=== PATIENT | female | born 1985 | race American Indian/Alaskan Native ===

== ENCOUNTER 2018-07-11 11:55 | Emergency (ER) | payer SELFPAY ==
[2018-07-11 12:31] LABS: Basophils % (Auto) 0.3 % (0.0-1.8); Eosinophils # (Auto) 0.1 K/mm3 (0.0-0.4); Eosinophils % (Auto) 1.2 % (0.0-4.3); Hematocrit 39.2 % (30.3-42.9); Hemoglobin 13.3 gm/dl (10.1-14.3); Lymphocytes # (Auto) 1.1 K/mm3 (1.2-5.4); Lymphocytes % (Auto) 13.9 % (13.4-35.0); Mean Corpuscular HGB Conc 34 % (30-34); Mean Corpuscular Volume 95 fl (79-97); Monocytes # (Auto) 0.8 K/mm3 (0.0-0.8); Monocytes % (Auto) 9.5 % (0.0-7.3); Platelet Count 205 K/mm3 (140-440); Red Blood Count 4.14 M/mm3 (3.65-5.03); Red Cell Distribution Width 13.5 % (13.2-15.2)
--- NOTE | 2018-07-11 12:46 | Emergency Department Report ---
ED Seizure HPI - General Chief Complaint: Seizure Stated Complaint: SEIZURE Time Seen by Provider: 07/11/18 12:00 Source: EMS Mode of arrival: Stretcher Limitations: No Limitations - History of Present Illness Initial Comments: 32-year-old female presents to ED following seizure. Patient has been noncompliant with seizure medication, zonisamide. Patient appears to be postictal, but is answering questions. MD Complaint: seizure -: This afternoon Seizure History: known seizure disorder, history of non-compliance Possible Precipitating Event: other (medication noncompliance) Associated Symptoms: denies: chest pain, fever/chills Treatments Prior to Arrival: none - Related Data Home Medications Medication Instructions Recorded Confirmed Last Taken Zonisamide 500 mg PO DAILY 07/11/18 07/11/18 07/03/18 08:00 Previous Rx's Medication Instructions Recorded Last Taken Type Zonisamide 500 mg PO QDAY #200 capsule 07/11/18 Unknown Rx Allergies Allergy/AdvReac Type Severity Reaction Status Date / Time No Known Allergies Allergy Verified 07/11/18 12:28 ED Review of Systems ROS: Stated complaint: SEIZURE Other details as noted in HPI Comment: All other systems reviewed and negative Constitutional: denies: fever Respiratory: denies: shortness of breath Cardiovascular: denies: chest pain Neurological: denies: headache ED Past Medical Hx - Past Medical History Previous Medical History?: Yes Hx Seizures: Yes Hx Asthma: (Per ER record) - Social History Smoking Status: Current Every Day Smoker Substance Use Type: Alcohol - Medications Home Medications: Home Medications Medication Instructions Recorded Confirmed Last Taken Type Zonisamide 500 mg PO DAILY 07/11/18 07/11/18 07/03/18 08:00 History Zonisamide 500 mg PO QDAY #200 capsule 07/11/18 Unknown Rx ED Physical Exam - General Limitations: No Limitations General appearance: alert, in no apparent distress - Head Head exam: Present: atraumatic, normocephalic - Eye Eye exam: Present: normal appearance - ENT ENT exam: Present: mucous membranes dry - Neck Neck exam: Present: normal inspection - Respiratory Respiratory exam: Present: normal lung sounds bilaterally. Absent: respiratory distress - Cardiovascular Cardiovascular Exam: Present: regular rate, normal rhythm - GI/Abdominal GI/Abdominal exam: Present: soft. Absent: distended, tenderness - Extremities Exam Extremities exam: Present: normal inspection - Neurological Exam Neurological exam: Present: alert, oriented X3 - Psychiatric Psychiatric exam: Present: normal affect, normal mood - Skin Skin exam: Present: warm, dry, intact, normal color ED Course Vital Signs 07/11/18 07/11/18 12:22 12:28 Temperature 97.9 F 97.9 F Pulse Rate 88 88 Respiratory 14 14 Rate Blood Pressure 104/56 Blood Pressure 104/56 104/56 [Right] O2 Sat by Pulse 99 99 Oximetry ED Medical Decision Making - Lab Data Result diagrams: 07/11/18 12:19 07/11/18 12:19 - Medical Decision Making 32-year-old female with history of seizure disorder, on seizure meds for approximately 2 weeks presents to ED after having a seizure. Blood pressure did trend to 80s over 60s, however patient not tachycardic, no sign of infection present. WBCs normal, patient is afebrile. O2 sats normal. Patient admits she has had decreased appetite over the last few days and not drinking very many fluids due to URI symptoms. BP responded and improved to 100/63 with 500 cc bolus of IV fluids. Patient currently awake and alert, no complaints. No seizures here in ED. Attempted to order a dose of patient's seizure medication, zonisamide, however that medication is not on formulary at this facility. Will instead give prescription. Patient's mother at bedside. Outpatient follow-up information given. Return precautions given. - Differential Diagnosis seizure, , electrolyte abnormality Critical care attestation.: If time is entered above; I have spent that time in minutes in the direct care of this critically ill patient, excluding procedure time. ED Disposition Clinical Impression: Seizure, Dehydration Disposition: - TO HOME OR SELFCARE Is pt being admited?: No Condition: Stable Prescriptions: Zonisamide 500 mg PO QDAY #200 capsule Referrals: ALAN CALDERON MD [Primary Care Provider] - 3-5 Days FARHANA DODSON MD [Referring] - 3-5 Days [facility] [Provider Group] - 3-5 Days Time of Disposition: 15:55
[2018-07-11 12:48] LABS: BUN/Creatinine Ratio 11; Blood Urea Nitrogen 8 mg/dL (7-17); Calcium 9.3 mg/dL (8.4-10.2); Hemolysis Index 8
[2018-07-11] MEDS ORDERED: NACL 0.9% 1000 ML 1,000 ML IV ONE (14:15)
[2018-07-11 16:32] VITALS: BP 100/63
== END 2018-07-11 16:28 | disposition home or self-care (01) ==
LOC: ED 11:55
DX: G40.909 Epilepsy, unspecified, not intractable, without status epilepticus (principal); E86.0 Dehydration; J45.909 Unspecified asthma, uncomplicated
CPT/HCPCS: 36415; 80048; 84703; 85025; 96360; 99284; J7030

== ENCOUNTER 2018-08-22 05:40 | Emergency (ER) | payer OTHER ==
[2018-08-22 07:16] LABS: Hematocrit 37.9 % (30.3-42.9); Hemoglobin 12.9 gm/dl (10.1-14.3); Mean Corpuscular HGB Conc 34 % (30-34); Mean Corpuscular Volume 95 fl (79-97); Platelet Count 249 K/mm3 (140-440); Red Cell Distribution Width 13.9 % (13.2-15.2)
[2018-08-22] MEDS ORDERED: KEPPRA 1,000 MG/NS 0.75% 100ML 1,000 MG/100 ML BAG IV ONE (07:29)
[2018-08-22 07:31] LABS: BUN/Creatinine Ratio 11; Blood Urea Nitrogen 9 mg/dL (7-17); Calcium 9.4 mg/dL (8.4-10.2); Hemolysis Index 18
[2018-08-22] MEDS ORDERED: NACL 0.9% 1000 ML 1,000 ML IV ONE (07:39)
[2018-08-22 10:15] LABS: Bilirubin,Urine NEG (Negative); Blood,Urine SM (Negative); Color,Urine Yellow (Yellow); Protein,Urine <15 mg/dL mg/dL (Negative); Urobilinogen,Urine < 2.0 mg/dL (<2.0)
[2018-08-22 10:27] LABS: HCG Qualitative,Urine Negative (Negative)
[2018-08-22 10:31] LABS: Amphetamine Screen,Urine PRESUMPTIVE NEGATIVE; Benzodiazepines Screen,Urine PRESUMPTIVE NEGATIVE; Cocaine Screen,Urine PRESUMPTIVE NEGATIVE; Methadone Screen,Urine PRESUMPTIVE NEGATIVE; Opiate Screen,Urine PRESUMPTIVE NEGATIVE
[2018-08-22 10:44] LABS: Cannabinoid Screen,Urine PRESUMPTIVE POSITIVE
--- NOTE | 2018-08-22 14:03 | Emergency Department Report ---
ED Seizure HPI - General Chief Complaint: Seizure Stated Complaint: SEIZURES Time Seen by Provider: 08/22/18 07:27 Source: EMS Mode of arrival: Stretcher Limitations: Other - History of Present Illness Initial Comments: Is a 32-year-old female had a seizure prior to arrival. She has a history of seizure disorder. She is not giving much history. However she denies any injury during the seizure. She denies headache fever or any other symptom. It looks like from prior records she has previously been on simvastatin by. I do not think that she is compliant with her medication. Complaint: seizure Description of Episode: tonic-clonic movement Possible Precipitating Event: other (possible noncompliance) Associated Symptoms: denies other symptoms - Related Data Home Medications Medication Instructions Recorded Confirmed Last Taken Zonisamide 500 mg PO DAILY 07/11/18 07/11/18 07/03/18 08:00 Previous Rx's Medication Instructions Recorded Last Taken Type Zonisamide 500 mg PO QDAY #200 capsule 07/11/18 Unknown Rx levETIRAcetam [Keppra] 500 mg PO BID #60 tablet 08/22/18 Unknown Rx Allergies Allergy/AdvReac Type Severity Reaction Status Date / Time No Known Allergies Allergy Verified 08/22/18 06:57 ED Review of Systems ROS: Stated complaint: SEIZURES Other details as noted in HPI Comment: All other systems reviewed and negative ED Past Medical Hx - Past Medical History Hx Seizures: Yes Hx Asthma: (Per ER record) - Social History Smoking Status: Current Every Day Smoker Substance Use Type: Alcohol - Medications Home Medications: Home Medications Medication Instructions Recorded Confirmed Last Taken Type Zonisamide 500 mg PO DAILY 07/11/18 07/11/18 07/03/18 08:00 History Zonisamide 500 mg PO QDAY #200 capsule 07/11/18 Unknown Rx levETIRAcetam [Keppra] 500 mg PO BID #60 tablet 08/22/18 Unknown Rx ED Physical Exam - General Limitations: Other (poorly cooperative) General appearance: alert, in no apparent distress - Head Head exam: Present: atraumatic, normocephalic - Eye Eye exam: Present: normal appearance, PERRL, EOMI. Absent: scleral icterus - ENT ENT exam: Present: mucous membranes moist - Neck Neck exam: Present: normal inspection. Absent: tenderness, meningismus - Respiratory Respiratory exam: Present: normal lung sounds bilaterally. Absent: respiratory distress - Cardiovascular Cardiovascular Exam: Present: regular rate, normal rhythm. Absent: systolic murmur, diastolic murmur, rubs, gallop - GI/Abdominal GI/Abdominal exam: Present: soft, normal bowel sounds. Absent: distended, tenderness, guarding, rebound, rigid - Extremities Exam Extremities exam: Present: normal inspection - Back Exam Back exam: Present: normal inspection - Neurological Exam Neurological exam: Present: alert, oriented X3, CN II-XII intact. Absent: motor sensory deficit - Psychiatric Psychiatric exam: Present: normal mood, flat affect - Skin Skin exam: Present: warm, dry, intact, normal color. Absent: rash ED Course Vital Signs 08/22/18 08/22/18 08/22/18 06:39 06:40 06:45 Temperature 97.3 F L Pulse Rate 81 Respiratory 16 Rate Blood Pressure 131/75 Blood Pressure 131/75 [Left] O2 Sat by Pulse 99 75 L Oximetry 08/22/18 08/22/18 08/22/18 07:00 07:15 07:30 Temperature Pulse Rate Respiratory Rate Blood Pressure 99/39 97/55 92/47 Blood Pressure [Left] O2 Sat by Pulse 96 98 95 Oximetry 08/22/18 08/22/18 08/22/18 07:45 08:00 08:15 Temperature Pulse Rate Respiratory Rate Blood Pressure 109/70 98/61 106/66 Blood Pressure [Left] O2 Sat by Pulse 97 Oximetry 08/22/18 08/22/18 08/22/18 08:30 08:45 09:00 Temperature Pulse Rate Respiratory Rate Blood Pressure 106/72 106/67 99/60 Blood Pressure [Left] O2 Sat by Pulse 100 99 96 Oximetry 08/22/18 08/22/18 08/22/18 09:15 09:30 10:21 Temperature Pulse Rate Respiratory Rate Blood Pressure 96/54 107/62 107/62 Blood Pressure [Left] O2 Sat by Pulse 92 98 100 Oximetry 08/22/18 08/22/18 08/22/18 10:30 10:46 11:00 Temperature Pulse Rate Respiratory Rate Blood Pressure 99/57 107/62 107/62 Blood Pressure [Left] O2 Sat by Pulse 100 100 100 Oximetry 08/22/18 08/22/18 08/22/18 11:16 11:30 11:46 Temperature Pulse Rate Respiratory Rate Blood Pressure 107/62 107/62 107/62 Blood Pressure [Left] O2 Sat by Pulse 100 100 99 Oximetry 08/22/18 12:00 Temperature Pulse Rate Respiratory Rate Blood Pressure 94/72 Blood Pressure [Left] O2 Sat by Pulse 98 Oximetry - Reevaluation(s) Reevaluation #1: Patient was given Keppra. She was observed without any recurrent seizures. She is appropriate for outpatient disposition. 08/22/18 14:00 ED Medical Decision Making - Lab Data Result diagrams: 08/22/18 07:03 08/22/18 07:03 Laboratory Results - last 24 hr 08/22/18 08/22/18 08/22/18 07:03 07:03 10:02 WBC 6.4 RBC 4.00 Hgb 12.9 Hct 37.9 MCV 95 MCH 32 MCHC 34 RDW 13.9 Plt Count 249 Sodium 142 Potassium 4.3 Chloride 108.4 H Carbon Dioxide 22 Anion Gap 16 BUN 9 Creatinine 0.8 Estimated GFR > 60 BUN/Creatinine Ratio 11 Glucose 92 Calcium 9.4 Urine Color Yellow Urine Turbidity Clear Urine pH 6.0 Ur Specific [place] 1.010 Urine Protein <15 mg/dl Urine Glucose (UA) Neg Urine Ketones Neg Urine Blood Sm Urine Nitrite Neg Urine Bilirubin Neg Urine Urobilinogen < 2.0 Ur Leukocyte Esterase Neg Urine WBC (Auto) 1.0 Urine RBC (Auto) 1.0 Urine HCG, Qual Negative Urine Opiates Screen Urine Methadone Screen Ur Barbiturates Screen Ur Phencyclidine Scrn Ur Amphetamines Screen U Benzodiazepines Scrn Urine Cocaine Screen U Marijuana (THC) Screen Drugs of Abuse Note 08/22/18 10:02 WBC RBC Hgb Hct MCV MCH MCHC RDW Plt Count Sodium Potassium Chloride Carbon Dioxide Anion Gap BUN Creatinine Estimated GFR BUN/Creatinine Ratio Glucose Calcium Urine Color Urine Turbidity Urine pH Ur Specific [place] Urine Protein Urine Glucose (UA) Urine Ketones Urine Blood Urine Nitrite Urine Bilirubin Urine Urobilinogen Ur Leukocyte Esterase Urine WBC (Auto) Urine RBC (Auto) Urine HCG, Qual Urine Opiates Screen Presumptive negative Urine Methadone Screen Presumptive negative Ur Barbiturates Screen Presumptive negative Ur Phencyclidine Scrn Presumptive negative Ur Amphetamines Screen Presumptive negative U Benzodiazepines Scrn Presumptive negative Urine Cocaine Screen Presumptive negative U Marijuana (THC) Screen Presumptive positive Drugs of Abuse Note Disclamer Critical care attestation.: If time is entered above; I have spent that time in minutes in the direct care of this critically ill patient, excluding procedure time. ED Disposition Clinical Impression: Seizure Disposition: DC-01 TO HOME OR SELFCARE Is pt being admited?: No Does the pt Need Aspirin: No Condition: Stable Instructions: Recurrent Seizures Adult (ED), Epilepsy (ED) Additional Instructions: Follow-up with a primary care setting. Rx Keppra. Return any acute change or problem. Prescriptions: levETIRAcetam [Keppra] 500 mg PO BID #60 tablet Referrals: PRIMARY CARE, [Primary Care Provider] - 3-5 Days [facility] [Provider Group] - 2-3 Days Time of Disposition: 14:01
[2018-08-22 14:32] VITALS: BP 119/72
== END 2018-08-22 14:33 | disposition home or self-care (01) ==
LOC: ED 05:40
DX: R56.9 Unspecified convulsions (principal); F17.200 Nicotine dependence, unspecified, uncomplicated; F12.10 Cannabis abuse, uncomplicated
CPT/HCPCS: 36415; 80048; 80307; 81001; 81025; 85027; 96365; 99284; J1953; J7030

== ENCOUNTER 2018-08-26 04:40 | Emergency (ER) | payer OTHER ==
[2018-08-26] MEDS ORDERED: KEPPRA 1,000 MG/NS 0.75% 100ML 1,000 MG/100 ML BAG IV ONE (04:45)
[2018-08-26 05:36] LABS: Hematocrit 42.8 % (30.3-42.9); Hemoglobin 14.3 gm/dl (10.1-14.3); Mean Corpuscular HGB Conc 33 % (30-34); Mean Corpuscular Volume 96 fl (79-97); Platelet Count 288 K/mm3 (140-440); Red Blood Count 4.47 M/mm3 (3.65-5.03); Red Cell Distribution Width 14.9 % (13.2-15.2)
[2018-08-26 05:52] LABS: BUN/Creatinine Ratio 13; Blood Urea Nitrogen 12 mg/dL (7-17); Calcium 9.9 mg/dL (8.4-10.2); Hemolysis Index 132
--- NOTE | 2018-08-26 06:42 | Emergency Department Report ---
ED Seizure HPI - General Chief Complaint: Seizure Stated Complaint: SEIZURE Time Seen by Provider: 08/26/18 06:34 Source: patient, EMS Mode of arrival: Stretcher Limitations: Other - History of Present Illness Initial Comments: Patient is 32 years old female with history of tonic clonic seizure, patient brought to the emergency room after one episode of seizure. Patient was seen here recently and she was started on Keppra but patient is not compliant with her medication. Patient stated that she didn't feel her medication but obviously she is not taking it. Patient did not give any reason for noncompliant. Patient denied any injury. No fever, nausea or vomiting. No chest pain or abdominal pain or shortness of breath. MD Complaint: seizure Description of Episode: loss of consciousness, tonic-clonic movement, post-event confusion Witnessed:: No Trauma: No Seizure History: known seizure disorder, history of non-compliance Place: home Possible Precipitating Event: none - Related Data Home Medications Medication Instructions Recorded Confirmed Last Taken Zonisamide 500 mg PO DAILY 07/11/18 07/11/18 07/03/18 08:00 Previous Rx's Medication Instructions Recorded Last Taken Type Zonisamide 500 mg PO QDAY #200 capsule 07/11/18 Unknown Rx levETIRAcetam [Keppra] 500 mg PO BID #60 tablet 08/22/18 Unknown Rx Allergies Allergy/AdvReac Type Severity Reaction Status Date / Time No Known Allergies Allergy Verified 08/22/18 06:57 ED Review of Systems ROS: Stated complaint: SEIZURE Other details as noted in HPI Comment: All other systems reviewed and negative Constitutional: denies: chills, fever Respiratory: denies: cough, orthopnea, shortness of breath, SOB with exertion, SOB at rest Cardiovascular: denies: chest pain, palpitations Gastrointestinal: denies: abdominal pain, nausea, vomiting, diarrhea, constipation, hematemesis, hematochezia Musculoskeletal: denies: back pain Neurological: denies: headache, weakness, numbness, paresthesias, confusion ED Past Medical Hx - Past Medical History Hx Seizures: Yes Hx Asthma: (Per ER record) - Social History Smoking Status: Current Every Day Smoker Substance Use Type: Alcohol, Marijuana - Medications Home Medications: Home Medications Medication Instructions Recorded Confirmed Last Taken Type Zonisamide 500 mg PO DAILY 07/11/18 07/11/18 07/03/18 08:00 History Zonisamide 500 mg PO QDAY #200 capsule 07/11/18 Unknown Rx levETIRAcetam [Keppra] 500 mg PO BID #60 tablet 08/22/18 Unknown Rx ED Physical Exam - General Limitations: Other General appearance: alert, in no apparent distress - Head Head exam: Present: atraumatic, normocephalic, normal inspection - Eye Eye exam: Present: normal appearance, PERRL - ENT ENT exam: Present: normal exam, normal orophraynx, mucous membranes moist - Neck Neck exam: Present: normal inspection, full ROM. Absent: tenderness, meningismus, lymphadenopathy, thyromegaly - Respiratory Respiratory exam: Present: normal lung sounds bilaterally. Absent: respiratory distress, wheezes, rales, rhonchi, chest wall tenderness, accessory muscle use, decreased breath sounds, prolonged expiratory - Cardiovascular Cardiovascular Exam: Present: regular rate, normal rhythm, normal heart sounds - GI/Abdominal GI/Abdominal exam: Present: soft, normal bowel sounds. Absent: distended, tenderness, guarding, rebound, rigid, organomegaly, mass, bruit, pulsatile mass - Extremities Exam Extremities exam: Present: normal inspection, full ROM, normal capillary refill - Back Exam Back exam: Present: normal inspection, full ROM. Absent: tenderness, CVA tenderness (R), CVA tenderness (L), muscle spasm, paraspinal tenderness, vertebral tenderness - Neurological Exam Neurological exam: Present: alert, oriented X3, CN II-XII intact, normal gait, reflexes normal - Skin Skin exam: Present: warm, intact, normal color ED Course Vital Signs 08/26/18 08/26/18 08/26/18 04:45 05:00 05:16 Temperature 98.6 F Pulse Rate 90 90 Respiratory 18 18 Rate Blood Pressure 107/65 101/58 101/58 O2 Sat by Pulse 95 90 95 Oximetry 08/26/18 08/26/18 08/26/18 05:30 05:46 06:00 Temperature Pulse Rate 91 H 90 82 Respiratory 18 15 12 Rate Blood Pressure 105/70 108/75 107/65 O2 Sat by Pulse 98 99 Oximetry 08/26/18 08/26/18 08/26/18 06:15 06:30 06:45 Temperature Pulse Rate 88 90 84 Respiratory 18 14 18 Rate Blood Pressure 106/66 108/66 104/61 O2 Sat by Pulse 97 96 Oximetry 08/26/18 08/26/18 08/26/18 07:00 07:06 07:08 Temperature Pulse Rate 87 85 85 Respiratory 20 19 19 Rate Blood Pressure 98/58 98/58 98/58 O2 Sat by Pulse 98 97 96 Oximetry 08/26/18 08/26/18 08/26/18 07:10 07:12 07:14 Temperature Pulse Rate 84 86 85 Respiratory 19 19 18 Rate Blood Pressure 98/58 98/58 98/58 O2 Sat by Pulse 96 96 96 Oximetry 08/26/18 08/26/18 08/26/18 07:15 07:16 07:18 Temperature Pulse Rate 84 85 82 Respiratory 18 18 16 Rate Blood Pressure 101/59 101/59 101/59 O2 Sat by Pulse 97 96 96 Oximetry 08/26/18 08/26/18 08/26/18 07:20 07:22 07:24 Temperature Pulse Rate 82 77 75 Respiratory 16 15 17 Rate Blood Pressure 101/59 101/59 101/59 O2 Sat by Pulse 100 98 97 Oximetry 08/26/18 08/26/18 08/26/18 07:26 07:28 07:30 Temperature Pulse Rate 92 H 82 100 H Respiratory 17 16 14 Rate Blood Pressure 101/59 101/59 101/59 O2 Sat by Pulse 98 96 100 Oximetry 08/26/18 08/26/18 07:32 07:33 Temperature Pulse Rate 92 H 92 H Respiratory 27 H Rate Blood Pressure 101/59 101/59 O2 Sat by Pulse 98 Oximetry ED Medical Decision Making - Lab Data Result diagrams: 08/26/18 05:15 08/26/18 05:15 - Medical Decision Making Patient is 32 years old female with history of tonic clonic seizure, patient brought to the emergency room after one episode of seizure. Patient was seen here recently and she was started on Keppra but patient is not compliant with he r medication. Patient stated that she didn't feel her medication but obviously she is not taking it. Patient did not give any reason for noncompliant. Patient denied any injury. No fever, nausea or vomiting. No chest pain or abdominal pain or shortness of breath. Patient received 1 g of Keppra. No seizure noticed in the ER. Patient is alert oriented 3 in no acute distress. I discussed with the patient and the compliance with her Keppra and the risk of having seizure and having head injury or any other injuries. Patient understood the instructions very well and stated that she will be compliant with her medication. I also advised her to follow up with her neurologist in the next 2-3 days and to return to the ER if she develop any new seizure. Critical care attestation.: If time is entered above; I have spent that time in minutes in the direct care of this critically ill patient, excluding procedure time. ED Disposition Clinical Impression: Seizure Disposition: DC-01 TO HOME OR SELFCARE Is pt being admited?: No Condition: Stable Instructions: Recurrent Seizures Adult (ED) Referrals: ZAHIRA RODRIGUEZ MD [Primary Care Provider] - 3-5 Days
[2018-08-26 10:33] VITALS: BP 110/55
== END 2018-08-26 10:40 | disposition home or self-care (01) ==
LOC: ED 04:40
DX: G40.909 Epilepsy, unspecified, not intractable, without status epilepticus (principal); F17.200 Nicotine dependence, unspecified, uncomplicated; F12.10 Cannabis abuse, uncomplicated
CPT/HCPCS: 36415; 80048; 82550; 85027; 96374; 99284; G0480; J1953; 80320

== ENCOUNTER 2018-09-01 05:11 | Inpatient (IN) | payer SELFPAY ==
[2018-09-01] MEDS ORDERED: NACL 0.9% 1000 ML 1,000 ML IV ONE (05:29)
[2018-09-01] MEDS ORDERED: D50W (25GM) Syringe IV ONE (05:46)
[2018-09-01 05:59] LABS: Hemoglobin 13.2 gm/dl (10.1-14.3); Mean Corpuscular HGB Conc 34 % (30-34); Mean Corpuscular Volume 95 fl (79-97); Platelet Count 276 K/mm3 (140-440); Red Blood Count 4.09 M/mm3 (3.65-5.03); Red Cell Distribution Width 14.2 % (13.2-15.2)
[2018-09-01 06:14] LABS: BUN/Creatinine Ratio 7; Blood Urea Nitrogen 8 mg/dL (7-17); Hemolysis Index 31
--- NOTE | 2018-09-01 06:48 | Emergency Department Report ---
ED Seizure HPI - General Chief Complaint: Seizure Stated Complaint: SEIZURES Time Seen by Provider: 09/01/18 06:40 Source: EMS Mode of arrival: Stretcher Limitations: Other - History of Present Illness Initial Comments: Patient is a 32-year-old female that presents emergency room with complaints of a seizure that was witnessed by family. Patient has a history of seizures and is compliant with her seizure medications. Patient is currently post ictal. Patient is lethargic but arousable but does not answer questions yet. Per the nurse's report, the patient had a seizure at home and had another one after arriving to the ER. The seizure in the ER terminated on its own. Patient is currently postictal MD Complaint: seizure -: Sudden Description of Episode: loss of consciousness, tonic-clonic movement, post-event confusion -: second(s) Witnessed:: Yes Trauma: No Seizure History: known seizure disorder, compliant with medication Place: home Possible Precipitating Event: none Treatments Prior to Arrival: none - Related Data Home Medications Medication Instructions Recorded Confirmed Last Taken Zonisamide 500 mg PO DAILY 07/11/18 07/11/18 07/03/18 08:00 Previous Rx's Medication Instructions Recorded Last Taken Type Zonisamide 500 mg PO QDAY #200 capsule 07/11/18 Unknown Rx levETIRAcetam [Keppra] 500 mg PO BID #60 tablet 08/22/18 Unknown Rx levETIRAcetam [Keppra TAB] 500 mg PO BID #60 tablet 08/26/18 Unknown Rx Allergies Allergy/AdvReac Type Severity Reaction Status Date / Time levetiracetam [From Keppra] Allergy Unknown Verified 09/01/18 10:20 ED Review of Systems ROS: Stated complaint: SEIZURES Other details as noted in HPI Comment: Unobtainable due to pts medical conditions ED Past Medical Hx - Past Medical History Previous Medical History?: Yes Hx Seizures: Yes Hx Asthma: (Per ER record) - Surgical History Past Surgical History?: No - Family History Family history: no significant - Social History Smoking Status: Current Some Day Smoker Substance Use Type: None - Medications Home Medications: Home Medications Medication Instructions Recorded Confirmed Last Taken Type Zonisamide 500 mg PO DAILY 07/11/18 07/11/18 07/03/18 08:00 History Zonisamide 500 mg PO QDAY #200 capsule 07/11/18 Unknown Rx levETIRAcetam [Keppra] 500 mg PO BID #60 tablet 08/22/18 Unknown Rx levETIRAcetam [Keppra TAB] 500 mg PO BID #60 tablet 08/26/18 Unknown Rx ED Physical Exam - General Limitations: Other General appearance: lethargic - Head Head exam: Present: atraumatic, normocephalic - Eye Eye exam: Present: normal appearance, PERRL Pupils: Present: normal accommodation - ENT ENT exam: Present: mucous membranes moist - Neck Neck exam: Present: normal inspection - Respiratory Respiratory exam: Present: normal lung sounds bilaterally. Absent: respiratory distress - Cardiovascular Cardiovascular Exam: Present: regular rate, normal rhythm. Absent: systolic murmur, diastolic murmur, rubs, gallop - GI/Abdominal GI/Abdominal exam: Present: soft, normal bowel sounds. Absent: distended, tenderness, guarding - Rectal Rectal exam: Present: deferred - Extremities Exam Extremities exam: Present: normal inspection, full ROM - Back Exam Back exam: Present: normal inspection - Neurological Exam Neurological exam: Present: alert, altered (patient is lethargic but arousable. She is currently postictal) - Skin Skin exam: Present: warm, dry, intact, normal color. Absent: rash ED Course Vital Signs 09/01/18 09/01/18 09/01/18 05:18 05:25 05:31 Temperature Pulse Rate 101 H 84 98 H Respiratory 18 18 22 Rate Blood Pressure 111/57 Blood Pressure 102/55 [Left] O2 Sat by Pulse 99 98 Oximetry 09/01/18 09/01/18 09/01/18 05:45 06:00 06:07 Temperature 98.8 F Pulse Rate 97 H 89 89 Respiratory 21 17 20 Rate Blood Pressure 102/55 109/74 112/68 Blood Pressure [Left] O2 Sat by Pulse 99 100 100 Oximetry 09/01/18 09/01/18 09/01/18 06:15 06:30 06:45 Temperature Pulse Rate 89 89 83 Respiratory 17 17 14 Rate Blood Pressure 109/74 92/44 92/44 Blood Pressure [Left] O2 Sat by Pulse 100 100 Oximetry 09/01/18 09/01/18 09/01/18 07:00 08:01 09:01 Temperature Pulse Rate 105 H 147 H 100 H Respiratory 18 12 20 Rate Blood Pressure 92/44 105/70 105/70 Blood Pressure [Left] O2 Sat by Pulse 99 99 98 Oximetry 09/01/18 09/01/18 09/01/18 10:00 11:00 12:00 Temperature Pulse Rate 102 H 93 H 95 H Respiratory 16 17 14 Rate Blood Pressure 115/63 117/73 123/83 Blood Pressure [Left] O2 Sat by Pulse 98 99 Oximetry 09/01/18 09/01/18 09/01/18 12:31 12:41 12:51 Temperature Pulse Rate 89 101 H 113 H Respiratory 19 19 17 Rate Blood Pressure 117/73 117/73 117/73 Blood Pressure [Left] O2 Sat by Pulse 99 100 99 Oximetry 09/01/18 13:38 Temperature 98.5 F Pulse Rate 86 Respiratory 18 Rate Blood Pressure 103/67 Blood Pressure [Left] O2 Sat by Pulse 98 Oximetry - Reevaluation(s) Reevaluation #1: Seizure activity noted. Patient given Ativan. Family at bedside. Family states the patient has been compliant with her medication and that the patient has a allergy to Keppra. 09/01/18 09:20 The patient will be admitted Due to the fact patient has had some many seizures in the ER and required another round of Ativan, Patient was admitted to the hospitalist service for further evaluation treatment. Patient is still postictal at this time. 09/01/18 11:53 - Consultations Consultation #1: Hospitalist consulted for admission. Hospitalist to admit patient. Hospitalist to assume care patient. Bridge orders placed 09/01/18 11:55 ED Medical Decision Making - Lab Data Result diagrams: 09/01/18 05:51 09/01/18 05:51 - Radiology Data Radiology results: report reviewed - Medical Decision Making Patient is a 32-year-old female that presents emergency room for seizure activity. Patient had multiple seizures in the ER. Patient required multiple medications. Patient has status epilepticus. Patient given Ativan and a gram of Cerebyx. Patient was admitted to the hospitalist service for further evaluation treatment. Patient reported neurology consult. Patient's labs are stable. Patient's CT of the head was negative. Patient has been postictally entire ER stay. - Differential Diagnosis sz. Missed medication. Status epilepticus. Hypoglycemia Critical Care Time: Yes Critical care attestation.: If time is entered above; I have spent that time in minutes in the direct care of this critically ill patient, excluding procedure time. Critical Care Time: 45 minutes ED Disposition Clinical Impression: Seizure, Status epilepticus, Hypoglycemia, Post-ictal state Disposition: DC09 OP ADMIT IP TO THIS HOSP Is pt being admited?: Yes Does the pt Need Aspirin: No Condition: Critical Time of Disposition: 11:50
--- NOTE | 2018-09-01 07:43 | Cat Scan Report ---
CT HEAD WITHOUT CONTRAST INDICATION: Seizure. COMPARISON: 12/25/2013. FINDINGS: Noncontrast head CT again demonstrates normal ventricles and sulci without acute or recent infarct, hemorrhage, mass effect or midline shift. No abnormal extra-axial fluid collections. Posterior fossa structures and basilar cisterns within normal limits. Symmetric eye globes. Leftward nasal septal bowing. Slight bilateral maxillary sinus mucosal thickening posteriorly. Somewhat small/hypoplastic frontal sinuses. Clear remainder aerated paranasal sinuses and mastoid air cells. Intact calvarium. Normal overlying scalp soft tissues. CONCLUSION: No acute intracranial CT abnormality, as described. Thank you for the opportunity to participate in this patient's care.
[2018-09-01] MEDS ORDERED: ATIVAN ONE (09:26)
[2018-09-01] MEDS ORDERED: ATIVAN IV ONE (09:26)
[2018-09-01] MEDS ORDERED: KEPPRA 1,000 MG/NS 0.75% 100ML 0 MG/0 ML BAG IV ONE (09:30)
[2018-09-01] MEDS ORDERED: CEREBYX 1,000 MG.PE in NACL 0.9% 100 ML IV ONE (09:45)
[2018-09-01] MEDS ORDERED: TYLENOL PO PRN (16:39)
[2018-09-01] MEDS ORDERED: PERCOCET 5/325 PO PRN (16:39)
[2018-09-01] MEDS ORDERED: ZOFRAN IV PRN (16:39)
[2018-09-01] MEDS ORDERED: SODIUM CHLORIDE FLUSH SYRINGE 10 ML IV PRN (16:39)
[2018-09-01] MEDS ORDERED: DILAUDID IV PRN (16:39)
[2018-09-01] MEDS ORDERED: IBUPROFEN PO PRN (16:39)
--- NOTE | 2018-09-01 16:44 | History and Physical Report ---
History of Present Illness Date of examination: 09/01/18 Date of admission: 09/01/18 12:01 Chief complaint: Seizures X2 History of present illness: 32-year-old female comes in with complaints of a seizure that was witnessed by family. Patient has a history of seizures and is noncompliant with her seizure medications per mother. Patient is currently post ictal. Patient is lethargic but arousable but does not answer questions yet.As per mother patient is also a lcohol dependent.Patient had a seizure at home and had another one after arriving to the ER. The seizure in the ER terminated on its own. Patient is currently postictal.Patient has side effects with Keppra.On Zonisamide once a day . Past Medical History Previous Medical History?: Yes Hx Seizures: Yes Hx Asthma: (Per ER record) Surgical History Past Surgical History?: No Family History Family history: no significant Social History Smoking Status: Current Some Day Smoker Substance Use Type: None ETOH dependent Medications Home Medications: Home Medications Medication Instructions Recorded Confirmed Last Taken Type Zonisamide 500 mg PO DAILY 07/11/18 07/11/18 07/03/18 08:00 History Zonisamide 500 mg PO QDAY #200 capsule 07/11/18 Unknown Rx levETIRAcetam [Keppra] 500 mg PO BID #60 tablet 08/22/18 Unknown Rx levETIRAcetam [Keppra TAB] 500 mg PO BID #60 tablet 08/26/18 Unknown Rx Review of Systems ROS: Stated complaint: SEIZURES Other details as noted in HPI Comment: Unobtainable due to pts medical conditions Medications and Allergies Allergies Allergy/AdvReac Type Severity Reaction Status Date / Time levetiracetam [From Keppra] Allergy Unknown Verified 09/01/18 10:20 Home Medications Medication Instructions Recorded Confirmed Last Taken Type Zonisamide 500 mg PO DAILY 07/11/18 09/01/18 07/03/18 08:00 History Zonisamide 500 mg PO QDAY #200 capsule 07/11/18 09/01/18 Unknown Rx levETIRAcetam [Keppra] 500 mg PO BID #60 tablet 08/22/18 09/01/18 Unknown Rx levETIRAcetam [Keppra TAB] 500 mg PO BID #60 tablet 08/26/18 09/01/18 Unknown Rx Active Meds: Active Medications Acetaminophen (Tylenol) 650 mg PO Q4H PRN PRN Reason: Pain MILD(1-3)/Fever >100.5/[facility] Hydromorphone HCl (Dilaudid) 0.25 mg IV Q3H PRN PRN Reason: Pain, Moderate (4-6) Dextrose/Sodium Chloride (D5ns) 1,000 mls @ 100 mls/hr IV DIRECT TJ Fosphenytoin Sodium 100 mg.pe/ (Sodium Chloride) 52 mls @ 200 mls/hr IV Q8HR TJ Ibuprofen (Motrin) 600 mg PO Q6H PRN PRN Reason: Pain, Mild (1-3) Ondansetron HCl (Zofran) 4 mg IV Q8H PRN PRN Reason: Nausea And Vomiting Oxycodone/Acetaminophen (Percocet 5/325) 1 tab PO Q6H PRN PRN Reason: Pain, Moderate (4-6) Sodium Chloride (Sodium Chloride Flush Syringe 10 Ml) 10 ml IV BID TJ Sodium Chloride (Sodium Chloride Flush Syringe 10 Ml) 10 ml IV PRN PRN PRN Reason: LINE FLUSH Exam - Constitutional Vitals: Temp Pulse Resp BP Pulse Ox 98.5 F 86 18 103/67 98 09/01/18 13:38 09/01/18 13:38 09/01/18 13:38 09/01/18 13:38 09/01/18 13:38 General appearance: Present: no acute distress, well-nourished - EENT Eyes: Present: PERRL ENT: hearing intact, clear oral mucosa - Neck Neck: Present: supple, normal ROM - Respiratory Respiratory effort: normal Respiratory: bilateral: CTA - Cardiovascular Heart rate: 78 Rhythm: regular Heart Sounds: Present: S1 & S2. Absent: rub, click - Extremities Extremities: no ischemia, pulses intact, pulses symmetrical, No edema Peripheral Pulses: within normal limits - Abdominal General gastrointestinal: Present: soft, non-tender, non-distended, normal bowel sounds Female genitourinary: Present: normal - Rectal Rectal Exam: deferred - Integumentary Integumentary: Present: clear, warm, dry - Musculoskeletal Musculoskeletal: gait normal, strength equal bilaterally - Psychiatric Psychiatric: appropriate mood/affect, intact judgment & insight - Neurologic Neurologic: CNII-XII intact, moves all extremities - Allied Health Allied health notes reviewed: nursing, case management Results - Labs CBC & Chem 7: 09/02/18 04:41 09/02/18 04:41 Labs: Laboratory Last Values WBC 8.0 K/mm3 (4.5-11.0) 09/01/18 05:51 RBC 4.09 M/mm3 (3.65-5.03) 09/01/18 05:51 Hgb 13.2 gm/dl (10.1-14.3) 09/01/18 05:51 Hct 39.0 % (30.3-42.9) 09/01/18 05:51 MCV 95 fl (79-97) 09/01/18 05:51 MCH 32 pg (28-32) 09/01/18 05:51 MCHC 34 % (30-34) 09/01/18 05:51 RDW 14.2 % (13.2-15.2) 09/01/18 05:51 Plt Count 276 K/mm3 (140-440) 09/01/18 05:51 Sodium 140 mmol/L (137-145) 09/01/18 05:51 Potassium 4.5 mmol/L (3.6-5.0) 09/01/18 05:51 Chloride 102.7 mmol/L (98-107) 09/01/18 05:51 Carbon Dioxide 21 mmol/L (22-30) L 09/01/18 05:51 Anion Gap 21 mmol/L 09/01/18 05:51 BUN 8 mg/dL (7-17) 09/01/18 05:51 Creatinine 1.1 mg/dL (0.7-1.2) 09/01/18 05:51 Estimated GFR > 60 ml/min 09/01/18 05:51 BUN/Creatinine Ratio 7 % 09/01/18 05:51 Glucose 71 mg/dL (65-100) 09/01/18 05:51 POC Glucose 75 (70-105) 09/01/18 11:51 Calcium 10.0 mg/dL (8.4-10.2) 09/01/18 05:51 - Imaging and Cardiology EKG: report reviewed CT Scan - head: report reviewed (NAF) Assessment and Plan Advance Directives: Yes (FC) VTE prophylaxis?: Chemical Plan of care discussed with patient/family: Yes - Patient Problems (1) Seizure Current Visit: Yes Status: Acute Plan to address problem: On Cerebyx bcoz of side effects with Keppra Maybe discharged on Zonisamide and being compliant Patient is non compliant (2) Encephalopathy acute Current Visit: Yes Status: Acute Plan to address problem: Sec to seizures Should resolve once seizures are controlled (3) EtOH dependence Current Visit: Yes Status: Chronic Qualifiers: Substance use status: in withdrawal Plan to address problem: Initiated on CIWA lprotocol MH consult requested (4) Hypoglycemia Current Visit: Yes Status: Acute Plan to address problem: IV D5w (5) DVT prophylaxis Current Visit: Yes Status: Acute Plan to address problem: Lovenox and GI prophylaxis
[2018-09-01] MEDS ORDERED: ZONISAMIDE 200 MG PO SCH (17:00)
[2018-09-01] MEDS: D5NS 1,000 ML IV SCH (19:10)
[2018-09-01] MEDS: CEREBYX IV SCH (19:11)
[2018-09-01] MEDS: NACL IV SCH (19:11)
[2018-09-01] MEDS: [UNRECOGNIZED DRUG - OTHER] IV SCH (19:11)
[2018-09-01] MEDS: SODIUM CHLORIDE FLUSH SYRINGE 10 ML IV SCH (22:39)
[2018-09-02] MEDS: [UNRECOGNIZED DRUG - OTHER] IV SCH ×3 (00:11→14:55)
[2018-09-02] MEDS: CEREBYX IV SCH ×3 (00:11→14:55)
[2018-09-02] MEDS: NACL IV SCH ×3 (00:11→14:55)
[2018-09-02 05:22] LABS: Basophils % (Auto) 0.6 % (0.0-1.8); Eosinophils % (Auto) 0.2 % (0.0-4.3); Hemoglobin 12.5 gm/dl (10.1-14.3); Lymphocytes # (Auto) 1.6 K/mm3 (1.2-5.4); Lymphocytes % (Auto) 22.7 % (13.4-35.0); Mean Corpuscular HGB Conc 34 % (30-34); Mean Corpuscular Volume 96 fl (79-97); Monocytes # (Auto) 0.8 K/mm3 (0.0-0.8); Monocytes % (Auto) 10.6 % (0.0-7.3); Platelet Count 258 K/mm3 (140-440); Red Blood Count 3.87 M/mm3 (3.65-5.03)
[2018-09-02 05:34] LABS: Calcium 8.7 mg/dL (8.4-10.2); Hemolysis Index 7
[2018-09-02 06:32] LABS: Alanine Aminotransferase 14 units/L (7-56); Albumin 3.9 g/dL (3.9-5); BUN/Creatinine Ratio 13; Blood Urea Nitrogen 9 mg/dL (7-17)
[2018-09-02] MEDS: D5NS 1,000 ML IV SCH (06:45)
[2018-09-02] MEDS ORDERED: D5/0.45NS 1,000 ML IV SCH (08:00)
[2018-09-02] MEDS: SODIUM CHLORIDE FLUSH SYRINGE 10 ML IV SCH (09:38)
[2018-09-02] MEDS ORDERED: NON-FORMULARY PO SCH (14:00)
--- NOTE | 2018-09-02 16:11 | Discharge Summary ---
Providers - Providers Date of Admission: 09/01/18 12:01 Date of discharge: 09/02/18 Attending physician: ARVIN ALTAMIRANO 09/01/18 16:39 Consult to Physician [CONS] Routine Comment: Consulting Provider: TOLU PORRAS Physician Instructions: Reason For Exam: seizure Primary care physician: [facility] Hospitalization Condition: Fair Hospital course: Patient is 32 yo with seizure disorder. She presented after seizure that was witnessed by family. Patient has a history of seizures and is noncompliant with her seizure medications per mother. She was evaluated in ED. Patient was lethargic but arouseable. She had a seizure at home and had another one after arriving to the ER. She was evaluated, started on Ativan prn, home meds, resumed and she was admitted. By following day she was fully awake,aback to baseline, no more seizures. She was therefore discharged home. She said she ran out so was given prescription for Zonisamide 500mg po daily. Disposition: TO HOME OR SELFCARE - Discharge Diagnoses (1) Breakthrough seizure Status: Acute (2) Seizure disorder Status: Acute (3) Post-ictal state Status: Acute (4) Seizure Status: Acute Core Measure Documentation - Palliative Care Palliative Care/ Comfort Measures: Not Applicable - Core Measures Any of the following diagnoses?: none Exam - Constitutional Vitals: Temp Pulse Resp BP Pulse Ox 98.4 F 92 H 20 106/67 97 09/02/18 11:44 09/02/18 11:44 09/02/18 11:44 09/02/18 11:44 09/02/18 11:44 General appearance: Present: no acute distress - EENT Eyes: Present: PERRL ENT: hearing intact - Neck Neck: Present: supple - Respiratory Respiratory: bilateral: CTA - Cardiovascular Rhythm: regular Heart Sounds: Present: S1 & S2 Plan Activity: no driving until cleared by PCP Diet: low fat, low cholesterol, low salt Additional Instructions: 1,Follow up with [facility] in 1 week. 2.No driving for 6 months and until cleared by Physician because of seizures Follow up with: [facility] [Primary Care Provider] - 7 Days Prescriptions: Zonisamide 500 mg PO DAILY 30 Days capsule
[2018-09-02 18:55] VITALS: BP 109/73
[2018-09-02] MEDS ORDERED: PEPCID IV SCH (22:00)
[2018-09-02] MEDS ORDERED: LOVENOX SUB-Q SCH (22:00)
== END 2018-09-02 18:15 | disposition home or self-care (01) | DRG 101 ==
LOC: ED 05:11 → 3A 12:01
PROVIDERS: ADMIT Internal Medicine; ATTEND Internal Medicine
DX: G40.901 Epilepsy, unspecified, not intractable, with status epilepticus (principal); F10.239 Alcohol dependence with withdrawal, unspecified; J45.909 Unspecified asthma, uncomplicated; E16.2 Hypoglycemia, unspecified; F17.210 Nicotine dependence, cigarettes, uncomplicated; Y90.0 Blood alcohol level of less than 20 mg/100 ml; Z88.8 Allergy status to other drugs, medicaments and biological substances; Z79.899 Other long term (current) drug therapy; Z71.6 Tobacco abuse counseling; Z91.19 Patient's noncompliance with other medical treatment and regimen
CPT/HCPCS: 36415; 70450; 80048; 80053; 82962; 83036; 83735; 85025; 85027; 87116; 96374; 96375; 99406; G0378; J1953; J2060; J7030; J7042; Q2009

== ENCOUNTER 2018-09-12 07:16 | Emergency (ER) | payer SELFPAY ==
[2018-09-12] MEDS ORDERED: ATIVAN PO ONE (07:48)
--- NOTE | 2018-09-12 07:48 | Emergency Department Report ---
ED General Adult HPI - General Chief complaint: Seizure Stated complaint: SEIZURE Time Seen by Provider: 09/12/18 07:18 Source: EMS Mode of arrival: Stretcher Limitations: No Limitations - History of Present Illness Initial comments: Patient presents to emergency department with a chief complaint of seizures. Patient has a history of seizures and states she's been taking her seizure medication. Patient denies having a headache currently. -: Sudden Severity scale (0 -10): 0 Improves with: none Worsens with: none Associated Symptoms: denies other symptoms Treatments Prior to Arrival: none - Related Data Previous Rx's Medication Instructions Recorded Last Taken Type Zonisamide 500 mg PO QDAY #200 capsule 07/11/18 Unknown Rx Zonisamide 500 mg PO DAILY 30 Days capsule 09/02/18 09/11/18 Rx Allergies Allergy/AdvReac Type Severity Reaction Status Date / Time levetiracetam [From Keppra] Allergy Unknown Verified 09/01/18 10:20 ED Review of Systems ROS: Stated complaint: SEIZURE Other details as noted in HPI Comment: All other systems reviewed and negative Constitutional: denies: chills, fever Eyes: denies: eye pain, eye discharge, vision change ENT: denies: ear pain, throat pain Respiratory: denies: cough, shortness of breath, wheezing Cardiovascular: denies: chest pain, palpitations Endocrine: no symptoms reported Gastrointestinal: denies: abdominal pain, nausea, diarrhea Genitourinary: denies: urgency, dysuria, discharge Musculoskeletal: denies: back pain, joint swelling, arthralgia Skin: denies: rash, lesions Neurological: denies: headache, weakness, paresthesias Psychiatric: denies: anxiety, depression Hematological/Lymphatic: denies: easy bleeding, easy bruising ED Past Medical Hx - Past Medical History Hx Seizures: Yes Hx Asthma: (Per ER record) - Social History Smoking Status: Current Some Day Smoker Substance Use Type: None - Medications Home Medications: Home Medications Medication Instructions Recorded Confirmed Last Taken Type Zonisamide 500 mg PO QDAY #200 capsule 07/11/18 09/01/18 Unknown Rx Zonisamide 500 mg PO DAILY 30 Days capsule 09/02/18 09/12/18 09/11/18 Rx ED Physical Exam - General Limitations: No Limitations General appearance: alert, in no apparent distress - Head Head exam: Present: atraumatic, normocephalic - Eye Eye exam: Present: normal appearance, PERRL, EOMI - ENT ENT exam: Present: mucous membranes moist - Neck Neck exam: Present: normal inspection - Respiratory Respiratory exam: Present: normal lung sounds bilaterally. Absent: respiratory distress, wheezes, rales, rhonchi - Cardiovascular Cardiovascular Exam: Present: regular rate, normal rhythm. Absent: systolic murmur, diastolic murmur, rubs, gallop - GI/Abdominal GI/Abdominal exam: Present: soft, normal bowel sounds. Absent: distended, tenderness - Extremities Exam Extremities exam: Present: normal inspection - Back Exam Back exam: Present: normal inspection - Neurological Exam Neurological exam: Present: alert, oriented X3, CN II-XII intact, other (patient is postictal). Absent: motor sensory deficit - Psychiatric Psychiatric exam: Present: normal affect, normal mood - Skin Skin exam: Present: warm, dry, intact, normal color. Absent: rash ED Course Vital Signs 09/12/18 09/12/18 09/12/18 07:28 07:31 07:43 Temperature Pulse Rate 87 Respiratory 16 Rate Blood Pressure 100/49 O2 Sat by Pulse 99 100 100 Oximetry 09/12/18 09/12/18 07:49 07:54 Temperature 98.8 F Pulse Rate Respiratory 16 Rate Blood Pressure O2 Sat by Pulse 98 98 Oximetry ED Medical Decision Making - Medical Decision Making patient given Ativan Upon discharge the patient is no longer postictal and answers all questions appropriately Critical care attestation.: If time is entered above; I have spent that time in minutes in the direct care of this critically ill patient, excluding procedure time. ED Disposition Clinical Impression: Seizure Disposition: DC-01 TO HOME OR SELFCARE Is pt being admited?: No Does the pt Need Aspirin: No Condition: Stable Instructions: Recurrent Seizures Adult (ED) Additional Instructions: return if worse Referrals: ZAHIRA RODRIGUEZ MD [Primary Care Provider] - 3-5 Days [facility] [Provider Group] - 3-5 Days [facility] [Provider Group] - 3-5 Days Time of Disposition: 08:35
[2018-09-12 08:34] VITALS: BP 105/73
== END 2018-09-12 09:20 | disposition home or self-care (01) ==
LOC: ED 07:16
DX: R56.9 Unspecified convulsions (principal); F17.200 Nicotine dependence, unspecified, uncomplicated; Z88.8 Allergy status to other drugs, medicaments and biological substances
CPT/HCPCS: 99283

== ENCOUNTER 2018-09-30 10:47 | Emergency (ER) | payer OTHER ==
[2018-09-30] MEDS ORDERED: ATIVAN IV ONE (11:28)
--- NOTE | 2018-09-30 12:12 | Emergency Department Report ---
ED Seizure HPI - General Chief Complaint: Seizure Stated Complaint: SEIZURE Time Seen by Provider: 09/30/18 11:04 Source: family, EMS Mode of arrival: Stretcher Limitations: Altered Mental Status - History of Present Illness Initial Comments: 32-year-old female with a past medical history of seizures presents to the hospital with complaint of seizures. Cousin at the bedside. Cousin did not witness seizure because patient was at a friend's house. Patient received 2.5 mg of IM Versed prior to arrival and presents with nasal trumpet. Causing some shortness patient is compliant with her seizure medication. Patient had another seizure in the ed just prior to my evaluation and is currently post ictal period last known medication or record is Zonisamide 500mg daily and she has an allergy to Keppra. - Related Data Previous Rx's Medication Instructions Recorded Last Taken Type Zonisamide 500 mg PO QDAY #200 capsule 07/11/18 Unknown Rx Zonisamide 500 mg PO DAILY 30 Days capsule 09/30/18 Unknown Rx Allergies Allergy/AdvReac Type Severity Reaction Status Date / Time levetiracetam [From Keppra] Allergy Unknown Verified 09/30/18 10:50 ED Review of Systems ROS: Stated complaint: SEIZURE Other details as noted in HPI Comment: All other systems reviewed and negative ED Past Medical Hx - Past Medical History Previous Medical History?: Yes Hx Seizures: Yes Hx Asthma: (Per ER record) - Social History Smoking Status: Current Some Day Smoker Substance Use Type: None - Medications Home Medications: Home Medications Medication Instructions Recorded Confirmed Last Taken Type Zonisamide 500 mg PO QDAY #200 capsule 07/11/18 09/01/18 Unknown Rx Zonisamide 500 mg PO DAILY 30 Days capsule 09/30/18 Unknown Rx ED Physical Exam - General Limitations: Altered Mental Status - Other Other exam information: General: Unresponsive, drowsy Head exam: Atraumatic, normocephalic Eyes exam: Normal appearance, pupils equal reactive to light ENT: Moist mucous membrane, nasal trumpet Neck exam: Normal inspection, full range of motion, no meningismus nontender Respiratory exam: Clear to auscultation bilateral, no wheezes, rales, crackles Cardiovascular: Normal rate and rhythm Abdomen: Soft, nondistended, and nontender, with normal bowel sounds, no reboun d, or guarding Extremity: Full range of motion normal inspection no deformity Back: Normal Inspection, full range of motion, no tenderness Neurologic: Post ictal, drowsy, sensation grossly attack and moves all extremities equally Psychiatric: normal affect, normal mood Skin: Warm, dry, intact ED Course Vital Signs 09/30/18 09/30/18 09/30/18 10:57 11:10 13:26 Temperature 97.9 F 98 F Pulse Rate 95 H 93 H 89 Respiratory 16 17 17 Rate Blood Pressure 97/56 Blood Pressure 111/64 106/65 [Left] O2 Sat by Pulse 98 99 100 Oximetry 09/30/18 15:37 Temperature Pulse Rate 99 H Respiratory 18 Rate Blood Pressure Blood Pressure 103/59 [Left] O2 Sat by Pulse 98 Oximetry - Reevaluation(s) Reevaluation #1: 09/30/18 15:14 Patient is awake but still drowsy and was able to ambulate to bathroom. She states she has been compliant with her medication. She does not have a neurologist and recently had her insurance reinstated ED Medical Decision Making - Lab Data Result diagrams: 09/30/18 11:51 09/30/18 14:25 Lab Results 09/30/18 09/30/18 09/30/18 Range/Units 11:51 11:51 14:25 WBC 10.5 (4.5-11.0) K/mm3 RBC 4.52 (3.65-5.03) M/mm3 Hgb 14.9 H (10.1-14.3) gm/dl Hct 45.0 H (30.3-42.9) % MCV 100 H (79-97) fl MCH 33 H (28-32) pg MCHC 33 (30-34) % RDW 14.6 (13.2-15.2) % Plt Count 179 (140-440) K/mm3 Lymph % (Auto) [facility] [employer] [place] % (Auto) [employer] Eos % (Auto) [employer] Baso % (Auto) [employer] Lymph # [facility] [employer] [facility] [place] # [employer] Eos # [employer] Baso # [employer] Seg Neutrophils % [employer] Seg Neutrophils # [employer] Sodium 141 (137-145) mmol/L Potassium 4.3 (3.6-5.0) mmol/L Chloride 107.7 H (98-107) mmol/L Carbon Dioxide 22 (22-30) mmol/L Anion Gap 16 mmol/L BUN 8 (7-17) mg/dL Creatinine 0.7 (0.7-1.2) mg/dL Estimated GFR > 60 ml/min BUN/Creatinine Ratio 11 % Glucose 111 H (65-100) mg/dL Calcium 9.0 (8.4-10.2) mg/dL Magnesium 2.00 (1.7-2.3) mg/dL HCG, Qual Negative (Negative) - Medical Decision Making Patient did receive 1 mg of Ativan IV in the ED after seizure. She was then observed in the ED and slept for several hours. No further seizure activity. It was so weak she states he has been compliant with her medications and has not missed any doses. Her current medication is non formulary here in the hospital. Patient will be discharged with a refill of her medication and neurology follow-up - Differential Diagnosis breakthrough seizure, electrolyte abnormality, status, medication noncompli Critical Care Time: No Critical care attestation.: If time is entered above; I have spent that time in minutes in the direct care of this critically ill patient, excluding procedure time. ED Disposition Clinical Impression: Seizure Disposition: DC-01 TO HOME OR SELFCARE Is pt being admited?: No Does the pt Need Aspirin: No Condition: Stable Instructions: Epilepsy (ED) Additional Instructions: Take the medication as prescribed. Follow up with your doctor or the clinic/doctor provided. Return if symptoms worsen as indicated by your discharge instructions Prescriptions: Zonisamide 500 mg PO DAILY 30 Days capsule Referrals: AUNG CARLOS MD [Staff Physician] - 3-5 Days (Neurology) JUSTICE BOND MD [Staff Physician] - 3-5 Days (Neurology) Time of Disposition: 16:59
[2018-09-30 12:45] LABS: Hemoglobin 14.9 gm/dl (10.1-14.3); Mean Corpuscular HGB Conc 33 % (30-34); Mean Corpuscular Volume 100 fl (79-97); Red Blood Count 4.52 M/mm3 (3.65-5.03); Red Cell Distribution Width 14.6 % (13.2-15.2)
[2018-09-30 12:52] LABS: Platelet Count 179 K/mm3 (140-440)
[2018-09-30] MEDS ORDERED: NACL 0.9% 1000 ML 1,000 ML IV ONE (13:51)
[2018-09-30 14:48] LABS: BUN/Creatinine Ratio 11; Blood Urea Nitrogen 8 mg/dL (7-17); Hemolysis Index 3
[2018-09-30 15:39] VITALS: BP 103/59
== END 2018-09-30 17:35 | disposition home or self-care (01) ==
LOC: ED 10:47
DX: G40.909 Epilepsy, unspecified, not intractable, without status epilepticus (principal); F17.200 Nicotine dependence, unspecified, uncomplicated
CPT/HCPCS: 36415; 80048; 83735; 84703; 85025; 96374; 99284; J2060; J7030

== ENCOUNTER 2018-11-02 00:31 | Inpatient (IN) | payer SELFPAY ==
[2018-11-02 01:08] LABS: Hematocrit 38.1 % (30.3-42.9); Hemoglobin 13.1 gm/dl (10.1-14.3); Mean Corpuscular HGB Conc 34 % (30-34); Mean Corpuscular Volume 96 fl (79-97); Platelet Count 234 K/mm3 (140-440); Red Blood Count 3.95 M/mm3 (3.65-5.03)
[2018-11-02 01:28] LABS: BUN/Creatinine Ratio 10; Blood Urea Nitrogen 8 mg/dL (7-17); Hemolysis Index 40
--- NOTE | 2018-11-02 02:03 | Emergency Department Report ---
ED General Adult HPI - General Chief complaint: Seizure Stated complaint: SEIZURE Time Seen by Provider: 11/02/18 02:02 Source: EMS Mode of arrival: Stretcher Limitations: No Limitations - History of Present Illness Initial comments: 32-year-old female with a history of seizures on Zomig therapy presents after having a seizure at midnight. Patient states that she took her Zomig therapy later than she typically does. Patient's last ER visit was on September 30 for seizure activity. Patient states that she was in the area of the whole time she had the seizure. Patient denies any chest pain or shortness of breath. Patient denies any headache at current time. Severity scale (0 -10): 0 - Related Data Previous Rx's Medication Instructions Recorded Last Taken Type Zonisamide 500 mg PO QDAY #200 capsule 07/11/18 Unknown Rx Zonisamide 500 mg PO DAILY 30 Days capsule 09/30/18 Unknown Rx Allergies Allergy/AdvReac Type Severity Reaction Status Date / Time levetiracetam [From [facility]] Allergy Unknown Verified 09/30/18 10:50 ED Review of Systems ROS: Stated complaint: SEIZURE Other details as noted in HPI Constitutional: denies: chills, fever Eyes: denies: eye pain, eye discharge, vision change ENT: denies: ear pain, throat pain Respiratory: denies: cough, shortness of breath, wheezing Cardiovascular: denies: chest pain, palpitations Endocrine: no symptoms reported Gastrointestinal: denies: abdominal pain, nausea, diarrhea Genitourinary: denies: urgency, dysuria, discharge Musculoskeletal: denies: back pain, joint swelling, arthralgia Skin: denies: rash, lesions Neurological: other (seizure) Psychiatric: denies: anxiety, depression Hematological/Lymphatic: denies: easy bleeding, easy bruising ED Past Medical Hx - Past Medical History Previous Medical History?: Yes Hx Seizures: Yes Hx Asthma: (Per ER record) - Social History Smoking Status: Current Some Day Smoker Substance Use Type: None - Medications Home Medications: Home Medications Medication Instructions Recorded Confirmed Last Taken Type Zonisamide 500 mg PO QDAY #200 capsule 07/11/18 09/01/18 Unknown Rx Zonisamide 500 mg PO DAILY 30 Days capsule 09/30/18 Unknown Rx ED Physical Exam - General Limitations: No Limitations General appearance: alert, in no apparent distress, other - Head Head exam: Present: atraumatic, normocephalic - Eye Eye exam: Present: normal appearance - ENT ENT exam: Present: mucous membranes moist - Neck Neck exam: Present: normal inspection - Respiratory Respiratory exam: Present: normal lung sounds bilaterally. Absent: respiratory distress - Cardiovascular Cardiovascular Exam: Present: regular rate, normal rhythm. Absent: systolic murmur, diastolic murmur, rubs, gallop - GI/Abdominal GI/Abdominal exam: Present: soft, normal bowel sounds - Extremities Exam Extremities exam: Present: normal inspection - Back Exam Back exam: Present: normal inspection - Neurological Exam Neurological exam: Present: alert, oriented X3 - Psychiatric Psychiatric exam: Present: normal affect, normal mood - Skin Skin exam: Present: warm, dry, intact, normal color. Absent: rash ED Course Vital Signs 11/02/18 00:51 Temperature 98.4 F Pulse Rate 82 Respiratory 16 Rate Blood Pressure 109/61 [Right] O2 Sat by Pulse 98 Oximetry ED Medical Decision Making - Lab Data Result diagrams: 11/02/18 00:54 11/02/18 00:54 - Medical Decision Making Patient has been monitored for 2-1/2 hours and has had no subsequent seizure activity. Patient resting comfortably. Patient vital stable. Patient to be discharged to follow up with her neurologist. - Differential Diagnosis Anemia; Electrolyte abnormality; Dehydration Critical care attestation.: If time is entered above; I have spent that time in minutes in the direct care of this critically ill patient, excluding procedure time. ED Disposition Clinical Impression: Seizure Disposition: DC-01 TO HOME OR SELFCARE Is pt being admited?: No Condition: Stable Instructions: Epilepsy (ED) Referrals: ZAHIRA RODRIGUEZ MD [Primary Care Provider] - 3-5 Days Time of Disposition: 02:55 Print Language: GREENLANDIC
[2018-11-02] MEDS ORDERED: ATIVAN ONE ×2 (03:06→06:00)
[2018-11-02] MEDS ORDERED: VIMPAT 150 MG in NACL 0.9% 100 ML IV STA (03:15)
[2018-11-02] MEDS ORDERED: ATIVAN IM ONE (03:20)
[2018-11-02] MEDS ORDERED: ATIVAN IV ONE (03:41)
[2018-11-02] MEDS ORDERED: NACL 0.9% 1000 ML 1,000 ML IV ONE ×3 (03:50→04:35)
[2018-11-02] MEDS ORDERED: NACL 0.9% 1000 ML 1,000 ML ONE (03:53)
[2018-11-02] MEDS ORDERED: ZOFRAN IV PRN (06:05)
[2018-11-02] MEDS ORDERED: TYLENOL PO PRN (06:05)
[2018-11-02] MEDS ORDERED: SODIUM CHLORIDE FLUSH SYRINGE 10 ML IV PRN (06:05)
--- NOTE | 2018-11-02 06:05 | Cat Scan Report ---
PROCEDURE: CT HEAD/BRAIN WO CON TECHNIQUE: Computerized tomography of the head was performed without contrast material. CT DOSE LENGTH PRODUCT: mGycm HISTORY: seizure COMPARISONS: None . FINDINGS: Skull and scalp: Normal . Paranasal sinuses: Normal . Ventricles and subarachnoid spaces: Normal . Cerebrum: No evidence of hemorrhage, acute infarction or mass . Cerebellum and brainstem: No evidence of hemorrhage, acute infarction or mass . Vasculature: Normal . IMPRESSION: Normal Examination . This document is electronically signed by Johann Campoverde MD., Nov 02 2018 06:03:27 AM ET
[2018-11-02] MEDS ORDERED: ATIVAN IV PRN (06:07)
--- NOTE | 2018-11-02 06:08 | History and Physical Report ---
<VAHE DOYLE - Last Filed: 11/02/18 06:21> History of Present Illness Date of examination: 11/02/18 Date of admission: 11/02/2018 Chief complaint: seizure disorder History of present illness: Pt is a 32-year-old female with PMHx of seizures disorder, allergies to Keppra, on Zomig daily who was brought to the ER by EMS for c/o seizure activities around midnight. Pt was unable to provide medical history and the history was taking from ER Dr and nurse. Patient was reported to have a seizure the day before and today around midnight, EMS was called by family and she was taking to the ER. Pt was over 2 hours in the ER without seizure activities, DC plan was made for pt's discharge. According to the nurse < 5 mins before discharged, she had an episode of clonic tonic seizure and another one following 30 mins later. Pt was giving a total of 4 mg of Ativan before resolution of seizure activities. Neurology was consulted and suggested to give IV Lacosamine, and admitted for further evaluation. On admission, pt was lethargic and unable to provide medical history. Past History Past Medical History: seizures Past Surgical History: No surgical history Social history: no significant social history Medications and Allergies Allergies Allergy/AdvReac Type Severity Reaction Status Date / Time levetiracetam [From Keppra] Allergy Unknown Verified 09/30/18 10:50 Home Medications Medication Instructions Recorded Confirmed Last Taken Type Zonisamide 500 mg PO QDAY #200 capsule 07/11/18 09/01/18 Unknown Rx Zonisamide 500 mg PO DAILY 30 Days capsule 09/30/18 Unknown Rx Active Meds: Active Medications Acetaminophen (Tylenol) 650 mg PO Q4H PRN PRN Reason: Pain MILD(1-3)/Fever >100.5/CH[facility]STIANSON Enoxaparin Sodium (Lovenox) 30 mg SUB-Q QDAY TJ Sodium Chloride (Nacl 0.9% 1000 Ml) 1,000 mls @ 150 mls/hr IV DIRECT TJ Lorazepam (Ativan) 1 mg IV Q4H PRN PRN Reason: Seizures Ondansetron HCl (Zofran) 4 mg IV Q8H PRN PRN Reason: Nausea And Vomiting Sodium Chloride (Sodium Chloride Flush Syringe 10 Ml) 10 ml IV BID TJ Sodium Chloride (Sodium Chloride Flush Syringe 10 Ml) 10 ml IV PRN PRN PRN Reason: LINE FLUSH Review of Systems ROS unobtainable: due to mental status (Pt is sedated) Exam - Constitutional Vitals: Temp Pulse Resp BP Pulse Ox 98.4 F 80 11 L 100/56 99 11/02/18 00:51 11/02/18 05:50 11/02/18 05:50 11/02/18 05:50 11/02/18 05:50 General appearance: Present: no acute distress - EENT Eyes: Present: EOM intact - Neck Neck: Present: normal ROM - Respiratory Respiratory effort: normal Respiratory: bilateral: CTA - Abdominal Female genitourinary: Present: deferred - Rectal Rectal Exam: deferred - Integumentary Integumentary: Present: warm - Neurologic Neurologic: moves all extremities Results - Labs CBC & Chem 7: 11/02/18 00:54 11/02/18 00:54 Labs: Laboratory Last Values WBC 6.7 K/mm3 (4.5-11.0) 11/02/18 00:54 RBC 3.95 M/mm3 (3.65-5.03) 11/02/18 00:54 Hgb 13.1 gm/dl (10.1-14.3) 11/02/18 00:54 Hct 38.1 % (30.3-42.9) 11/02/18 00:54 MCV 96 fl (79-97) 11/02/18 00:54 MCH 33 pg (28-32) H 11/02/18 00:54 MCHC 34 % (30-34) 11/02/18 00:54 RDW 13.0 % (13.2-15.2) L 11/02/18 00:54 Plt Count 234 K/mm3 (140-440) 11/02/18 00:54 Sodium 139 mmol/L (137-145) 11/02/18 00:54 Potassium 4.4 mmol/L (3.6-5.0) 11/02/18 00:54 Chloride 102.4 mmol/L (98-107) 11/02/18 00:54 Carbon Dioxide 22 mmol/L (22-30) 11/02/18 00:54 19 mmol/L 11/02/18 00:54 BUN 8 mg/dL (7-17) 11/02/18 00:54 0.8 mg/dL (0.7-1.2) 11/02/18 00:54 Estimated GFR > 60 ml/min 11/02/18 00:54 10 % 11/02/18 00:54 Glucose 90 mg/dL (65-100) 11/02/18 00:54 Calcium 10.0 mg/dL (8.4-10.2) 11/02/18 00:54 Assessment and Plan Assessment and plan: 1. Status Epilepticus 2. Lethargy (due to sedative) Plan: [facility] is [facility] with [facility] for hydration Start Lacosamine IV daily Monitor neuro status Resume home meds Seizure precaution Advance Directives: Yes VTE prophylaxis?: Mechanical Plan of care discussed with patient/family: Yes <CHAD COOPER E - Last Filed: 11/02/18 06:52> Medications and Allergies Active Meds: Active Medications Acetaminophen (Tylenol) 650 mg PO Q4H PRN PRN Reason: Pain MILD(1-3)/Fever >100.5/[facility]STIANSON Enoxaparin Sodium (Lovenox) 40 mg SUB-Q QDAY@1000 TJ Sodium Chloride (Nacl 0.9% 1000 Ml) 1,000 mls @ 150 mls/hr IV DIRECT TJ Lacosamide 200 mg/ Sodium (Chloride) 120 mls @ 100 mls/hr IV Q12H TJ Lorazepam (Ativan) 1 mg IV Q4H PRN PRN Reason: Seizures Miscellaneous Medication (Zonisamide [Zonisamide]) 500 mg PO DAILY TJ Miscellaneous Medication (Zonisamide [Zonisamide]) 500 mg PO QDAY TJ Ondansetron HCl (Zofran) 4 mg IV Q8H PRN PRN Reason: Nausea And Vomiting Sodium Chloride (Sodium Chloride Flush Syringe 10 Ml) 10 ml IV BID TJ Sodium Chloride (Sodium Chloride Flush Syringe 10 Ml) 10 ml IV PRN PRN PRN Reason: LINE FLUSH Exam - Constitutional Vitals: Temp Pulse Resp BP Pulse Ox 98.4 F 92 H 13 109/57 99 11/02/18 00:51 11/02/18 06:49 11/02/18 06:49 11/02/18 06:49 11/02/18 06:49 Results - Labs CBC & Chem 7: 11/02/18 00:54 11/02/18 00:54 Labs: Laboratory Last Values WBC 6.7 K/mm3 (4.5-11.0) 11/02/18 00:54 RBC 3.95 M/mm3 (3.65-5.03) 11/02/18 00:54 Hgb 13.1 gm/dl (10.1-14.3) 11/02/18 00:54 Hct 38.1 % (30.3-42.9) 11/02/18 00:54 MCV 96 fl (79-97) 11/02/18 00:54 MCH 33 pg (28-32) H 11/02/18 00:54 MCHC 34 % (30-34) 11/02/18 00:54 RDW 13.0 % (13.2-15.2) L 11/02/18 00:54 Plt Count 234 K/mm3 (140-440) 11/02/18 00:54 Sodium 139 mmol/L (137-145) 11/02/18 00:54 Potassium 4.4 mmol/L (3.6-5.0) 11/02/18 00:54 Chloride 102.4 mmol/L (98-107) 11/02/18 00:54 Carbon Dioxide 22 mmol/L (22-30) 11/02/18 00:54 19 mmol/L 11/02/18 00:54 BUN 8 mg/dL (7-17) 11/02/18 00:54 0.8 mg/dL (0.7-1.2) 11/02/18 00:54 Estimated GFR > 60 ml/min 11/02/18 00:54 10 % 11/02/18 00:54 Glucose 90 mg/dL (65-100) 11/02/18 00:54 Calcium 10.0 mg/dL (8.4-10.2) 11/02/18 00:54 Assessment and Plan Assessment and plan: 32-year-old woman with a history of seizure was brought to the emergency room because she had a seizure at home, she was late in taking her medication and home. She'll set for discharge when she had 2 seizures in the emergency room, status post IV Ativan, now sedated. Agree with plan as stated above
[2018-11-02] MEDS ORDERED: NACL 0.9% 1000 ML 1,000 ML IV SCH (07:00)
--- NOTE | 2018-11-02 08:59 | Event Note ---
Date: 11/02/18 Pt is a 32-year-old female with PMHx of seizures disorder, allergies to Keppra, on Zomig daily who was brought to the ER by EMS for c/o seizure activities around midnight. While patient was in the ER and had another episode of seizure. Patient was admitted for further rehabilitation and management. We'll continue current management and plan as dictated in the H&P. Will obtain EEG and follow neurology recommendation. Will obtain TSH, magnesium level and UDS.
[2018-11-02] MEDS ORDERED: ZONISAMIDE PO SCH (10:00)
[2018-11-02] MEDS ORDERED: LOVENOX SUB-Q SCH (10:00)
[2018-11-02] MEDS: LOVENOX SUB-Q SCH (10:04)
[2018-11-02] MEDS: SODIUM CHLORIDE FLUSH SYRINGE 10 ML IV SCH ×2 (10:05→22:08)
[2018-11-02] MEDS ORDERED: VIMPAT 200 MG in NACL 0.9% 100 ML IV SCH (16:00)
--- NOTE | 2018-11-02 17:31 | Consultation ---
History of Present Illness Consult date: 11/02/18 Chief complaint: seizure History of present illness: This is a 32 YO F who presented with seizures. She ahs a history of seizures and takes zonisamide. Reports compliance but says she gets her meds from the ED. No recent illness. Currently at baseline. Past History Past Medical History: seizures Past Surgical History: No surgical history Social history: no significant social history Medications and Allergies Allergies Allergy/AdvReac Type Severity Reaction Status Date / Time levetiracetam [From [facility]] Allergy Unknown Verified 09/30/18 10:50 Home Medications Medication Instructions Recorded Confirmed Last Taken Type Zonisamide 500 mg PO QDAY #200 capsule 07/11/18 11/02/18 Unknown Rx Zonisamide 500 mg PO DAILY 30 Days capsule 09/30/18 11/02/18 Unknown Rx Active Meds: Active Medications Acetaminophen (Tylenol) 650 mg PO Q4H PRN PRN Reason: Pain MILD(1-3)/Fever >100.5/[facility]SON Enoxaparin Sodium (Lovenox) 40 mg SUB-Q QDAY@1000 TJ Last Admin: 11/02/18 10:04 Dose: 40 mg Documented by: Sodium Chloride (Nacl 0.9% 1000 Ml) 1,000 mls @ 150 mls/hr IV DIRECT TJ Lorazepam (Ativan) 1 mg IV Q4H PRN PRN Reason: Seizures Miscellaneous Medication (Zonisamide [Zonisamide]) 500 mg PO DAILY [facility] Ondansetron HCl (Zofran) 4 mg IV Q8H PRN PRN Reason: Nausea And Vomiting Sodium Chloride (Sodium Chloride Flush Syringe 10 Ml) 10 ml IV BID [facility] Last Admin: 11/02/18 10:05 Dose: 10 ml Documented by: Sodium Chloride (Sodium Chloride Flush Syringe 10 Ml) 10 ml IV PRN PRN PRN Reason: LINE FLUSH Review of Systems Neurological: seizures Physical Examination - Vital Signs Vital Signs: Vital Signs Temp Pulse Resp BP Pulse Ox 98.4 F 82 16 109/61 98 11/02/18 00:51 11/02/18 00:51 11/02/18 00:51 11/02/18 00:51 11/02/18 00:51 - Constitutional General appearance: comfortable - EENT EENT: Present: PERRL - Respiratory Respiratory: Present: lungs clear - Cardiovascular Cardiovascular: Present: regular rate Extremities: Present: no peripheral edema bilatateraly - Gastrointestinal Gastrointestinal: Present: normoactive bowel sounds - Neurologic Cranial nerve examination: PERRL, EOMI, face symmetric, tongue midline Motor examination - right side: 5/5: biceps, triceps, wrist flexion, wrist extension, hash slinger, hip flexors, knee extensors, dorsiflexion, toe extension (EHL), plantarflexion Motor examination - left side: 5/5: biceps, triceps, wrist flexion, wrist extension, hash slinger, hip flexors, knee extensors, dorsiflexion, toe extension (EHL), plantarflexion Detailed sensory examination: light touch Results - Laboratory Findings CBC and BMP: 11/02/18 00:54 11/02/18 00:54 Abnormal Lab Findings: Abnormal Labs 11/02/18 00:54 MCH 33 H RDW 13.0 L Assessment and Plan This is a 32 YO F with known seizures who presents with breakthru seizures. REcommend: Restart Zonisamide, wean vimpat, pt without insurance and unlikely able to afford. Doubt strict compliance Agree with UDS and UA to look for reasons for lowered seizure threshold Continue care for any medical issues as you are doing No driving as per [place] law x 6 months
[2018-11-03 05:56] LABS: Basophils % (Auto) 0.6 % (0.0-1.8); Eosinophils % (Auto) 0.3 % (0.0-4.3); Hematocrit 37.5 % (30.3-42.9); Lymphocytes # (Auto) 1.5 K/mm3 (1.2-5.4); Lymphocytes % (Auto) 27.5 % (13.4-35.0); Mean Corpuscular HGB Conc 35 % (30-34); Mean Corpuscular Volume 95 fl (79-97); Monocytes # (Auto) 0.5 K/mm3 (0.0-0.8); Monocytes % (Auto) 9.1 % (0.0-7.3); Platelet Count 205 K/mm3 (140-440); Red Blood Count 3.97 M/mm3 (3.65-5.03); Red Cell Distribution Width 12.8 % (13.2-15.2)
[2018-11-03 06:16] LABS: BUN/Creatinine Ratio 9; Blood Urea Nitrogen 7 mg/dL (7-17); Calcium 9.2 mg/dL (8.4-10.2); Hemolysis Index 2
[2018-11-03] MEDS: SODIUM CHLORIDE FLUSH SYRINGE 10 ML IV SCH ×2 (09:44→22:32)
[2018-11-03] MEDS: LOVENOX SUB-Q SCH (09:44)
[2018-11-03] MEDS ORDERED: ZONISAMIDE PO SCH (10:00)
[2018-11-03] MEDS ORDERED: K-DUR PO ONE (11:18)
[2018-11-03] MEDS ORDERED: D5NS 1,000 ML IV SCH (12:00)
--- NOTE | 2018-11-03 13:56 | Discharge Summary ---
Providers - Providers Date of Admission: 11/02/18 06:51 Date of discharge: 11/04/18 Attending physician: SHERRI FUNEZ 11/02/18 06:05 Consult to Physician [CONS] Routine Comment: Consulting Provider: KAITLIN DENNIS Physician Instructions: Reason For Exam: abigail [facility] Condition: Stable Pertinent studies: CT head: No acute intracranial process Hospital course: Pt is a 32-year-old female with PMHx of seizures disorder, allergies to Keppra, on Zomig daily who was brought to the ER by EMS for c/o seizure activities around midnight. While patient was in the ER and had another episode of seizure. Patient was admitted for further rehabilitation and management. EEG was ordered, neurology was consulted and her home medications were resumed. CT head showed no acute event, neurology recommended to continue medical management and no further intervention. Patient was monitored and no further seizure-like activity noted. She was advised for the compliance. UDS positive for amphetamine and marijuana, counseled for cessation. Give D5NS for hypoglycemia induced by skipping meal as she was very sleepy most of the time. She does not have any neurologist outpatient that she follows up with any generally gets the medications refilled from the hospital. She was encouraged to follow with a neurologist outpatient to get her regular medications refilled. Patient was then discharged home in stable condition with outpatient follow-up. She verbalized understanding and was stable for discharge. Discharge diagnosis: 1. Breakthrough seizure with Status Epilepticus, suspect noncompliance with medications and substance abuse possibly lowered the threshold for seizure - neuro consulted, recommended to cont home meds. CT head no acute event. 2. Lethargy (due to sedative and substance abuse), resolved 3. Transient hypoglycemia, due to skipping meal, place on D5 4. Hypokalemia, repleted 5. Substance abuse, UDS positive for amphetamine and marijuana, counseled Hospitalist physical: GENERAL: well-developed and well-nourished -[place] female lying on bed appeared to be in no discomfort. HEENT: Normocephalic. Atraumatic. No conjunctival congestion or icterus. Pat ient has moist mucous membranes. NECK: Supple. Trachea midline. CHEST/LUNGS: Clear to auscultated bilaterally, breathing nonlabored. No wheezes crackles or rhonchi. HEART/CARDIOVASCULAR: Regular in rate and rhythm. S1 and S2 positive. ABDOMEN: Abdomen is soft, nontender. Patient has normal bowel sounds. SKIN: There is no rash. Warm and dry. NEURO: No focal motor deficit. Follows command. MUSCULOSKELETAL: No joint effusion or tenderness. EXTRIMITY: No edema, no cyanosis or clubbing. PSYCH: Cooperative. Disposition: - TO HOME OR SELFCARE Time spent for discharge: 34 minutes Core Measure Documentation - Palliative Care Palliative Care/ Comfort Measures: Not Applicable - Core Measures Any of the following diagnoses?: none Exam - Constitutional Vitals: Temp Pulse Resp BP Pulse Ox 98.0 F 78 12 102/60 99 11/03/18 11:58 11/03/18 11:58 11/03/18 11:58 11/03/18 11:58 11/03/18 11:58 Plan Activity: advance as tolerated Weight Bearing Status: Weight Bear as Tolerated Diet: regular Follow up with: JULIAN PETERSEN MD [Staff Physician] - 7 Days [place] ZAHIRA TERRELL MD [Primary Care Provider] - 3-5 Days Prescriptions: Zonisamide 500 mg PO DAILY 30 Days #30 capsule
[2018-11-03] MEDS ORDERED: D50W (25GM) Syringe IV ONE (14:00)
[2018-11-03 14:05] LABS: Benzodiazepines Screen,Urine PRESUMPTIVE NEGATIVE; Cocaine Screen,Urine PRESUMPTIVE NEGATIVE; Methadone Screen,Urine PRESUMPTIVE NEGATIVE; Opiate Screen,Urine PRESUMPTIVE NEGATIVE
[2018-11-03 14:22] LABS: Amphetamine Screen,Urine PRESUMPTIVE POSITIVE; Cannabinoid Screen,Urine PRESUMPTIVE POSITIVE
[2018-11-04 06:47] VITALS: BP 93/60
[2018-11-04] MEDS ORDERED: ZONISAMIDE PO SCH (10:00)
--- NOTE | 2018-11-04 10:09 | Progress Note ---
Assessment and Plan 1. Breakthrough seizure with Status Epilepticus, suspect noncompliance with medications and substance abuse possibly lowered the threshold for seizure - neuro consulted, cont home meds. seizure precaution 2. Lethargy (due to sedative and substance abuse), resolved 3. Transient hypoglycemia, due to skipping meal, place on D5 4. Hypokalemia, repleted 5. Substance abuse, UDS positive for amphetamine, counseled Disposition: tomorrow when BG improves and becomes more clinically stable Hospitalist physical: GENERAL: well-developed and well-nourished -[place] female lying on bed appeared to be in no discomfort. lethargic but oriented HEENT: Normocephalic. Atraumatic. No conjunctival congestion or icterus. Patient has moist mucous membranes. NECK: Supple. Trachea midline. CHEST/LUNGS: Clear to auscultated bilaterally, breathing nonlabored. No wheezes crackles or rhonchi. HEART/CARDIOVASCULAR: Regular in rate and rhythm. S1 and S2 positive. ABDOMEN: Abdomen is soft, nontender. Patient has normal bowel sounds. SKIN: There is no rash. Warm and dry. NEURO: No focal motor deficit. Follows command. MUSCULOSKELETAL: No joint effusion or tenderness. EXTRIMITY: No edema, no cyanosis or clubbing. PSYCH: Cooperative. Subjective Date of service: 11/03/18 Interval history: Patient seen and examined still appears very lethargic but not confused having low BG as not eating and sleeping most of the time denies any SOB or chest pain, no O/N seizure planned to d/c today but discharge cancelled for low BG and lethargy Objective - Constitutional Vitals: Vital Signs - 12hr 11/03/18 11/04/18 23:21 05:14 Temperature 98.0 F 97.4 F L Pulse Rate 69 64 Respiratory 18 16 Rate Blood Pressure 106/74 93/60 O2 Sat by Pulse 100 100 Oximetry - Labs CBC & Chem 7: 11/03/18 05:14 11/03/18 05:14 Labs: Abnormal lab results 11/03/18 11/03/18 11/03/18 Range/Units 11:23 16:33 22:22 POC Glucose 68 L 64 L 108 H (70-105)
[2018-11-04] MEDS: LOVENOX SUB-Q SCH (10:33)
[2018-11-04] MEDS: SODIUM CHLORIDE FLUSH SYRINGE 10 ML IV SCH (10:34)
== END 2018-11-04 11:30 | disposition home or self-care (01) | DRG 101 ==
LOC: SUATTDRO 00:31 → ED 00:31 → 3A 06:51
PROVIDERS: ADMIT Internal Medicine; ATTEND Internal Medicine
DX: G40.901 Epilepsy, unspecified, not intractable, with status epilepticus (principal); F12.90 Cannabis use, unspecified, uncomplicated; F19.10 Other psychoactive substance abuse, uncomplicated; R53.83 Other fatigue; E16.1 Other hypoglycemia; E87.6 Hypokalemia; F15.10 Other stimulant abuse, uncomplicated; Z71.51 Drug abuse counseling and surveillance of drug abuser
CPT/HCPCS: 36415; 70450; 80048; 80307; 82962; 83615; 83735; 84146; 84439; 84443; 85025; 85027; 99406; G0378; C9254; J1650; J2060; J3246; J7030; J7042

== ENCOUNTER 2019-02-24 05:00 | Emergency (ER) | payer OTHER ==
[2019-02-24] MEDS ORDERED: ATIVAN IV ONE (05:19)
[2019-02-24 06:10] LABS: Basophils # (Auto) 0.1 K/mm3 (0.0-0.1); Basophils % (Auto) 0.8 % (0.0-1.8); Eosinophils % (Auto) 0.2 % (0.0-4.3); Hemoglobin 13.1 gm/dl (10.1-14.3); Lymphocytes # (Auto) 1.2 K/mm3 (1.2-5.4); Lymphocytes % (Auto) 13.9 % (13.4-35.0); Mean Corpuscular HGB Conc 33 % (30-34); Mean Corpuscular Volume 95 fl (79-97); Monocytes # (Auto) 0.6 K/mm3 (0.0-0.8); Monocytes % (Auto) 6.6 % (0.0-7.3); Platelet Count 258 K/mm3 (140-440); Red Blood Count 4.21 M/mm3 (3.65-5.03); Red Cell Distribution Width 13.3 % (13.2-15.2)
--- NOTE | 2019-02-24 06:43 | Emergency Department Report ---
HPI - General Chief Complaint: Seizure Time Seen by Provider: 02/24/19 06:10 - HPI HPI: 33-year-old -Stateless female presents to the emergency department via EMS with complaint of seizures. The patient allegedly had 4 seizures prior to arrival and had one witnessed seizure by EMS. The patient does have a seizure history and was here in October of this year for some recurrent seizures. She appears to be on a medication called Zonisamide for her seizures but is currently postictal and a poor historian. Unknown if she received anything in route but she did receive 1 mg of Ativan from the overnight ER physician. ED Past Medical Hx - Past Medical History Previous Medical History?: Yes Hx Seizures: Yes Hx Asthma: (Per ER record) - Surgical History Past Surgical History?: No - Social History Smoking Status: Never Smoker Substance Use Type: None - Medications Home Medications: Home Medications Medication Instructions Recorded Confirmed Last Taken Type Zonisamide 500 mg PO QDAY #200 capsule 07/11/18 11/02/18 Unknown Rx Zonisamide 500 mg PO DAILY 30 Days #30 capsule 11/03/18 Unknown Rx ED Review of Systems ROS: Stated complaint: SEIZURE Other details as noted in HPI Comment: Unobtainable due to pts medical conditions Physical Exam - Physical Exam Vital Signs: Vital Signs 02/24/19 02/24/19 02/24/19 05:06 05:11 05:15 Temperature 98.7 F Pulse Rate 88 95 H Respiratory 20 Rate Blood Pressure 92/39 O2 Sat by Pulse 95 96 Oximetry 02/24/19 02/24/19 02/24/19 05:30 05:46 06:00 Temperature Pulse Rate 96 H 98 H 98 H Respiratory 21 22 16 Rate Blood Pressure 96/66 96/66 96/66 O2 Sat by Pulse 99 81 L 93 Oximetry 02/24/19 06:16 Temperature Pulse Rate 97 H Respiratory 17 Rate Blood Pressure 96/66 O2 Sat by Pulse 100 Oximetry Physical Exam: GENERAL: Patient is sleepy and postictal. HENT: Normocephalic. Atraumatic. Patient has moist mucous membranes. EYES: Pupils equal reactive to light bilaterally. NECK: Supple. Trachea is midline. CHEST/LUNGS: Clear to auscultation. There is no respiratory distress noted. HEART/CARDIOVASCULAR: Regular. There is no tachycardia. There is no murmur. ABDOMEN: Abdomen is soft, nontender. Patient has normal bowel sounds. There is no abdominal distention. SKIN: Skin is warm and dry. NEURO: Patient is sleepy and postictal. She is arousable to some verbal and tactile stimuli but will fall back asleep if not stimulated. MUSCULOSKELETAL: There is no tenderness or deformity. There is no evidence of acute injury. ED Course Vital Signs 02/24/19 02/24/19 02/24/19 05:06 05:11 05:15 Temperature 98.7 F Pulse Rate 88 95 H Respiratory 20 Rate Blood Pressure 92/39 O2 Sat by Pulse 95 96 Oximetry 02/24/19 02/24/19 02/24/19 05:30 05:46 06:00 Temperature Pulse Rate 96 H 98 H 98 H Respiratory 21 22 16 Rate Blood Pressure 96/66 96/66 96/66 O2 Sat by Pulse 99 81 L 93 Oximetry 02/24/19 06:16 Temperature Pulse Rate 97 H Respiratory 17 Rate Blood Pressure 96/66 O2 Sat by Pulse 100 Oximetry ED Medical Decision Making - Lab Data Result diagrams: 02/24/19 05:56 02/24/19 05:56 - Medical Decision Making This patient initially presented after having 4 seizures prior to arrival with one of them being witnessed by EMS. There has been no seizure-like activity since being in the emergency department but the patient has remained postictal and did receive a dose of Ativan from the overnight physician. At first, the patient is arousable but will fall back asleep immediately if not continuously stimulated. Labs have been unremarkable including CBC, metabolic panel, blood alcohol level, and thyroid panel. The urine drug screen was positive for amphetamines but the patient denies doing methamphetamines. It is possible that her seizure medications could have caused this falls positive. The patient was reevaluated multiple times over multiple hours and has greatly improved. She is awake and alert, oriented. She says that she is on 2 antiseizure medications and has been compliant. She's been in the emergency department for about 5 hours in total and there has been no further seizure-like activity. For these reasons, I did not feel that CT imaging of the head was necessary at this time. She says that she has good follow-up with primary care and neurology. The patient was seen ambulatory in the emergency department prior to discharge and both appears and feels stable. She has been instructed to avoid any alcohol or illicit drugs, continue with her antiepileptic medications, follow up with her primary care physician and neurologist, and return to the ER with any worsening of her symptoms or any acute distress. - Differential Diagnosis epilepsy, substance abuse, electrolyte abnormalities Critical Care Time: No Critical care attestation.: If time is entered above; I have spent that time in minutes in the direct care of this critically ill patient, excluding procedure time. ED Disposition Clinical Impression: Seizure, Seizure disorder Disposition: - TO HOME OR SELFCARE Is pt being admited?: No Condition: Stable Instructions: Epilepsy (ED), Recurrent Seizures Adult (ED) Additional Instructions: Please continue taking your seizure medications. Please follow-up with your primary care physician and neurologist. Try to avoid any alcohol or illicit drug use as this can lower your seizure threshold. Return to the emergency department with any recurrent seizure-like activity, worsening of your symptoms, or with any acute distress. Referrals: PCP, Your [Other] - 2-3 Days Neurologist, Your [Other] - 2-3 Days
[2019-02-24 06:56] LABS: BUN/Creatinine Ratio 9; Blood Urea Nitrogen 10 mg/dL (7-17); Calcium 9.7 mg/dL (8.4-10.2); Hemolysis Index 11
[2019-02-24] MEDS ORDERED: NACL 0.9% 1000 ML 1,000 ML IV ONE (06:58)
[2019-02-24 09:36] LABS: Bilirubin,Urine NEG (Negative); Blood,Urine NEG (Negative); Color,Urine Yellow (Yellow); Protein,Urine <15 mg/dL mg/dL (Negative)
[2019-02-24 09:42] LABS: Benzodiazepines Screen,Urine PRESUMPTIVE NEGATIVE; Cocaine Screen,Urine PRESUMPTIVE NEGATIVE; Methadone Screen,Urine PRESUMPTIVE NEGATIVE; Opiate Screen,Urine PRESUMPTIVE NEGATIVE
[2019-02-24 10:06] LABS: Amphetamine Screen,Urine PRESUMPTIVE POSITIVE; Cannabinoid Screen,Urine PRESUMPTIVE POSITIVE
[2019-02-24 10:18] VITALS: BP 100/44
== END 2019-02-24 11:17 | disposition home or self-care (01) ==
LOC: ED 05:00
DX: G40.909 Epilepsy, unspecified, not intractable, without status epilepticus (principal); Z79.899 Other long term (current) drug therapy
CPT/HCPCS: 36415; 80048; 80307; 81001; 82550; 83735; 84439; 84443; 84703; 85025; 96374; 99284; J2060; 80320; 96361; G0480

== ENCOUNTER 2019-10-05 12:29 | Observation (INO) | payer OTHER ==
[2019-10-05] MEDS ORDERED: LORazepam 2 MG/ML VIAL ONE (12:57)
[2019-10-05] MEDS ORDERED: LORazepam 2 MG/ML VIAL IM ONE (12:58)
[2019-10-05] MEDS ORDERED: SODIUM CHLORIDE 0.9% 1000 ML 1,000 ML IV ONE (13:10)
--- NOTE | 2019-10-05 13:16 | Emergency Department Report ---
ED Seizure HPI - General Chief Complaint: Seizure Stated Complaint: SEIZURE Time Seen by Provider: 10/05/19 12:48 Source: EMS Mode of arrival: Stretcher Limitations: No Limitations - History of Present Illness Initial Comments: 33-year-old female with history of seizure disorder presents to ED after having 6 seizures earlier today. Patient brought to the ED by EMS. Family reported that patient had prescription filled on yesterday for her seizure medicine. It is unknown if patient ran out of her medications and missed any doses. Patient is currently postictal and unable to answer questions. No medications given by EMS. Patient's home medications consist of Lexapro, clonidine, Trileptal, Xanax, Abilify, Zonegran. Patient has past visit in October 2018 for seizure, drug screen positive for marijuana and amphetamines at that time. MD Complaint: seizure -: This afternoon Description of Episode: loss of consciousness Witnessed:: Yes Seizure History: known seizure disorder - Related Data Previous Rx's Medication Instructions Recorded Last Taken Type Zonisamide 500 mg PO QDAY #200 capsule 07/11/18 Unknown Rx Zonisamide 500 mg PO DAILY 30 Days #30 capsule 11/03/18 Unknown Rx Allergies Allergy/AdvReac Type Severity Reaction Status Date / Time levetiracetam [From Keppra] Allergy Unknown Verified 09/30/18 10:50 ED Review of Systems ROS: Stated complaint: SEIZURE Other details as noted in HPI Comment: Unobtainable due to pts medical conditions (pt is postictal) ED Past Medical Hx - Past Medical History Previous Medical History?: Yes Hx Seizures: Yes Hx Asthma: Yes (Per ER record) - Social History Smoking Status: Unknown if ever smoked Substance Use Type: None - Medications Home Medications: Home Medications Medication Instructions Recorded Confirmed Last Taken Type Zonisamide 500 mg PO QDAY #200 capsule 07/11/18 11/02/18 Unknown Rx Zonisamide 500 mg PO DAILY 30 Days #30 capsule 11/03/18 Unknown Rx ED Physical Exam - General Limitations: No Limitations General appearance: lethargic - Head Head exam: Present: atraumatic, normocephalic - Eye Eye exam: Present: normal appearance, PERRL - ENT ENT exam: Present: mucous membranes moist - Neck Neck exam: Present: normal inspection - Respiratory Respiratory exam: Present: normal lung sounds bilaterally. Absent: respiratory distress - Cardiovascular Cardiovascular Exam: Present: regular rate, normal rhythm - GI/Abdominal GI/Abdominal exam: Present: soft. Absent: distended, tenderness - Extremities Exam Extremities exam: Present: normal inspection - Neurological Exam Neurological exam: Present: other (pt actively seizing, tonic-clonic movements) - Skin Skin exam: Present: warm, dry, intact, normal color ED Course Vital Signs 10/05/19 10/05/19 10/05/19 12:39 12:56 13:00 Temperature 98.8 F Pulse Rate 84 86 Respiratory 18 25 H Rate Blood Pressure 120/24 121/60 Blood Pressure [Right] O2 Sat by Pulse 98 50 L 98 Oximetry 10/05/19 10/05/19 10/05/19 13:15 13:30 13:45 Temperature Pulse Rate 101 H 86 77 Respiratory 26 H 22 19 Rate Blood Pressure 110/59 112/70 112/70 Blood Pressure [Right] O2 Sat by Pulse 100 98 97 Oximetry 10/05/19 10/05/19 10/05/19 14:01 16:22 17:10 Temperature 98.8 F Pulse Rate 78 82 96 H Respiratory 19 12 14 Rate Blood Pressure 102/73 Blood Pressure 104/55 120/58 [Right] O2 Sat by Pulse 99 99 Oximetry - Reevaluation(s) Reevaluation #1: 10/05/19 13:00 Patient had a seizure here in the ED. Lasted approximately 60 seconds. Ativan 2 mg ordered. Reevaluation #2: 10/05/19 13:29 Per chert review, pt has history of noncompliance w/ meds. Pt was taking Keppra for many years but it seems an allergy was reported last year and pt was taken off of Keppra. It is unclear what reaction developed to the Keppra. Reevaluation #3: 10/05/19 14:10 Pt had another short seizure. Has been postictal since arrival. Will obtain CT Head and load w/ fosphenytoin. Pt takes zonasimide and trileptal, unable to load IV, PO only. Reevaluation #4: 10/05/19 15:13 CT Head negative. Pt arousable, when I ask her name, pt states, "Erasmo," but falls back asleep. Will continue to monitor. Cerebyx currently infusing. ED Medical Decision Making - Lab Data Result diagrams: 10/05/19 13:20 10/05/19 12:58 - Radiology Data Radiology results: report reviewed, image reviewed - Medical Decision Making 33-year-old female with history of seizures and noncompliance with seizure therapy. Patient has prolonged postictal.. Head CT negative. Labs show elev ated WBCs, however this is likely due to multiple seizures that she has had today. Patient is afebrile. Patient able to wake up wanting to tell me her name, but then goes back to sleep. She is moving all extremities, does not seem to have any focal neuro deficits. Patient was loaded with Cerebyx, since her home medications are p.o. drug screen is positive for marijuana and amphetamines. Will admit to hospitalist, Dr Rodriguez, for further management. UA shows mild UTI. Rocephin given. - Differential Diagnosis seizure, drug use, med noncompliance Critical care attestation.: If time is entered above; I have spent that time in minutes in the direct care of this critically ill patient, excluding procedure time. ED Disposition Clinical Impression: Seizure, Post-ictal state, Abnormal drug screen UTI (urinary tract infection) Qualifiers: Encounter type: initial encounter Disposition: DC-09 OP ADMIT IP TO THIS HOSP Is pt being admited?: Yes Condition: Stable Time of Disposition: 16:44
[2019-10-05 13:29] LABS: Basophils % (Auto) 0.3 % (0.0-1.8); Eosinophils % (Auto) 0.1 % (0.0-4.3); Hematocrit 40.2 % (30.3-42.9); Hemoglobin 13.2 gm/dl (10.1-14.3); Lymphocytes # (Auto) 0.9 K/mm3 (1.2-5.4); Lymphocytes % (Auto) 6.3 % (13.4-35.0); Mean Corpuscular HGB Conc 33 % (30-34); Mean Corpuscular Volume 94 fl (79-97); Monocytes # (Auto) 1.1 K/mm3 (0.0-0.8); Platelet Count 304 K/mm3 (140-440); Red Cell Distribution Width 13.5 % (13.2-15.2)
[2019-10-05 13:47] LABS: BUN/Creatinine Ratio 8; Blood Urea Nitrogen 9 mg/dL (7-17); Calcium 9.8 mg/dL (8.4-10.2); Hemolysis Index 8
[2019-10-05] MEDS ORDERED: FOSPHENYTOIN 1,000 MG.PE in SODIUM CHLORIDE 0.9% 100 ML IV ONE (14:30)
--- NOTE | 2019-10-05 15:04 | Cat Scan Report ---
CT head/brain wo con INDICATION / CLINICAL INFORMATION: 33 years Female; seizures. TECHNIQUE: Routine CT head without contrast. All CT scans at this location are performed using CT dos e reduction for ALARA by means of automated exposure control. COMPARISON: 11/02/2018 FINDINGS: BRAIN / INTRACRANIAL CONTENTS: No acute hemorrhage, mass effect, midline shift, hydrocephalus, or acu te, large territorial infarct. No chronic infarct or atrophy appreciated. No significant white matter abnormality. CRANIOCERVICAL JUNCTION: No significant abnormality. ORBITS: No significant abnormality of visualized orbits. SINUSES / MASTOIDS: No significant abnormality the visualized paranasal sinuses or mastoid air cells. ADDITIONAL FINDINGS: None. IMPRESSION: 1. No focal mass, hemorrhage, hydrocephalus, or acute, large territorial infarct. Signer Name: Christopher Sidhu MD, III Signed: 10/05/2019 3:00 PM Workstation Name: [id number]
[2019-10-05 16:34] LABS: Benzodiazepines Screen,Urine PRESUMPTIVE NEGATIVE; Cocaine Screen,Urine PRESUMPTIVE NEGATIVE; Methadone Screen,Urine PRESUMPTIVE NEGATIVE; Opiate Screen,Urine PRESUMPTIVE NEGATIVE
[2019-10-05 16:35] LABS: Bacteria,Urine 1+ /HPF (Negative); Bilirubin,Urine NEG (Negative); Blood,Urine SM (Negative); Color,Urine Yellow (Yellow); Mucus,Urine FEW /HPF; Urobilinogen,Urine < 2.0 mg/dL (<2.0)
--- NOTE | 2019-10-05 16:36 | History and Physical Report ---
History of Present Illness Chief complaint: She keeps having seizures History of present illness: 33 YO Female with Seizure Disorder, Medication Noncompliance, Asthma-Mild Intermittent presents to ED for evaluation. Patient is confused and lethargic at time of my exam and is unable to provide history. Patient history provided by EMS, ED staff, and family. As per family the patient ran out of her medication and has missed several doses. Patient was able to get prescription filled on yesterday. As per family, the patient had experienced approximately 6 generalized seizures today and has become more confused after her past seizures. EMS notified and upon arrival the patient was found to be in distress and s ubsequently transported to [facility] for further care and evaluation. Patient seen and evaluated in the emergency department. Lab and imaging studies reviewed. Patient found to have symptoms consistent with status epilepticus complicated by postictal state. Patient placed in observation status and admitted to medical floor. No reports of fever, chills, chest pain, palpitations, productive cough, shortness of breath, skin rash, or recent ill contacts. Prior admission on 11/02/2018 reviewed. All medication listed at time of admission has been reconciled. Past History Past Medical History: seizures, other (See HPI) Past Surgical History: No surgical history, Other (Reviewed) Social history: single, lives with family Family history: hypertension Medications and Allergies Allergies Allergy/AdvReac Type Severity Reaction Status Date / Time levetiracetam [From Kera] Allergy Unknown Verified 09/30/18 10:50 Home Medications Medication Instructions Recorded Confirmed Last Taken Type Zonisamide 500 mg PO QDAY #200 capsule 07/11/18 11/02/18 Unknown Rx Zonisamide 500 mg PO DAILY 30 Days #30 capsule 11/03/18 Unknown Rx Review of Systems ROS unobtainable: due to mental status Exam - Constitutional Vitals: Temp Pulse Resp BP Pulse Ox 98.8 F 82 12 104/55 99 10/05/19 12:39 10/05/19 16:22 10/05/19 16:22 10/05/19 16:22 10/05/19 16:22 General appearance: Present: mild distress, disheveled - EENT Eyes: Present: miosis ENT: hearing intact, clear oral mucosa - Neck Neck: Present: supple, normal ROM - Respiratory Respiratory effort: normal Respiratory: bilateral: CTA - Cardiovascular Heart Sounds: Present: S1 & S2. Absent: rub, click - Extremities Extremities: pulses symmetrical, No edema Peripheral Pulses: within normal limits - Abdominal General gastrointestinal: Present: soft, non-tender, non-distended, normal bowel sounds Female genitourinary: Present: normal - Integumentary Integumentary: Present: clear, warm, dry - Musculoskeletal Musculoskeletal: generalized weakness - Psychiatric Psychiatric: no appropriate mood/affect, no intact judgment & insight, no memory intact - Neurologic Neurologic: CNII-XII intact, no focal deficits, moves all extremities, no gait normal Results - Labs CBC & Chem 7: 10/05/19 13:20 10/05/19 12:58 Labs: Abnormal lab results 10/05/19 10/05/19 Range/Units 12:58 13:20 WBC 15.1 H (4.5-11.0) K/mm3 Lymph % (Auto) 6.3 L (13.4-35.0) % Lymph # 0.9 L (1.2-5.4) K/mm3 [place] # 1.1 H (0.0-0.8) K/mm3 Seg Neutrophils % 86.3 H (40.0-70.0) % Seg Neutrophils # 13.1 H (1.8-7.7) K/mm3 Carbon Dioxide 16 L (22-30) mmol/L Glucose 124 H (65-100) mg/dL Assessment and Plan - Patient Problems (1) Status epilepticus Current Visit: No Status: Acute Plan to address problem: CT head, neuro check, seizure precaution, resume prehospital care medication, Ativan as needed, supportive care. Patient symptoms suspected secondary to medication noncompliance. Will resume prehospital medication without increasing in dosage due to noncompliance. Outpatient neurology follow-up. (2) Acidosis, metabolic Current Visit: Yes Status: Acute Plan to address problem: IV bicarbonate therapy, BMP, repeat BMP in a.m. (3) Post-ictal state Current Visit: Yes Status: Acute Plan to address problem: As of aspiration precautions, seizure precautions, supportive care. (4) UTI (urinary tract infection) Current Visit: Yes Status: Acute Qualifiers: Encounter type: initial encounter Plan to address problem: IV antibiotic therapy, IV fluid resuscitation therapy, CBC, CMP, urinalysis. (5) DVT prophylaxis Current Visit: No Status: Acute Plan to address problem: SCD to bilateral lower extremities while in bed, patient is ambulatory.
[2019-10-05] MEDS ORDERED: ACETAMINOPHEN 325 MG TAB PO PRN (16:38)
[2019-10-05] MEDS ORDERED: ONDANSETRON 4 MG/2 ML INJ IV PRN (16:38)
[2019-10-05] MEDS ORDERED: SODIUM CHLORIDE 0.9% 1000 ML 1,000 ML IV SCH ×2 (16:45→19:00)
[2019-10-05 16:46] LABS: Amphetamine Screen,Urine PRESUMPTIVE POSITIVE; Cannabinoid Screen,Urine PRESUMPTIVE POSITIVE
[2019-10-05] MEDS ORDERED: LORazepam 2 MG/ML VIAL IV NR (17:15)
[2019-10-05] MEDS ORDERED: cefTRIAXone/NS 1 GM/50 ML 1 GM/50 ML BAG IV SCH (18:00)
[2019-10-05] MEDS ORDERED: cefTRIAXone/NS 1 GM/50 ML 1 GM/50 ML BAG IV ONE (18:21)
[2019-10-05] MEDS ORDERED: SODIUM BICARB 8.4% 50 MEQ/50 ML SYRINGE IV ONE ×2 (18:55→19:27)
[2019-10-05] MEDS ORDERED: ACETAMINOPHEN 325 MG TAB ONE (19:25)
[2019-10-05] MEDS ORDERED: SODIUM BICARB 4.2% 5 MEQ/10 ML SYRINGE ONE (19:26)
[2019-10-05] MEDS ORDERED: LORazepam 2 MG/ML VIAL IV PRN (19:39)
[2019-10-05] MEDS ORDERED: SODIUM CHLORIDE 0.9% 1000 ML 1,000 ML ONE (19:49)
[2019-10-06 04:50] LABS: BUN/Creatinine Ratio 10; Blood Urea Nitrogen 7 mg/dL (7-17); Calcium 8.8 mg/dL (8.4-10.2)
[2019-10-06] MEDS ORDERED: ZONISAMIDE PO SCH (10:00)
[2019-10-06 12:14] VITALS: BP 108/64
--- NOTE | 2019-10-06 13:16 | Discharge Summary ---
Providers - Providers Date of Admission: 10/05/19 16:38 Date of discharge: 10/06/19 Attending physician: SHERRI FUNEZ 10/06/19 06:46 Speech Therapy Evaluation and Treat [CONS] Routine Reason For Exam: difficulty swallowing Primary care physician: FORENSIC ANTHROPOLOGIST Hospitalization Condition: Stable Pertinent studies: CT head Hospital course: Pt is a 32-year-old female with PMHx of seizures disorder, allergies to Keppra, on Zomig daily who was brought to the ER by EMS for c/o seizure activities per family members. Patient was admitted for further rehabilitation and management. Patient was monitored, resumed her home meds and no further seizure-like activity noted. She was not taking her meds for some time and she was advised for the compliance. UDS positive for amphetamine and marijuana, counseled for cessation. She does not have any neurologist outpatient to follow up and generally gets the medications refilled from the hospital. She was encouraged to follow with a neurologist outpatient to get her regular medications refilled. She was c/o sore throat, speech therapy was consultedand rapid strep was ordered. Patient was then discharged home in stable condition with outpatient follow-up. She verbalized understanding and was stable for discharge. Discharge diagnosis: 1. Breakthrough seizure with Status Epilepticus, suspect noncompliance with medications and substance abuse possibly lowered the threshold for seizure - cont home meds. CT head no acute event. 2. Lethargy (due to sedative and substance abuse), resolved 3. Noncompliance, counseled 4. leukocutosis, reactive 5. Substance abuse, UDS positive for amphetamine and marijuana, counseled Hospitalist physical: GENERAL: well-developed and well-nourished -[place] female lying on bed appeared to be in no discomfort. HEENT: Normocephalic. Atraumatic. No conjunctival congestion or icterus. Patient has moist mucous membranes. NECK: Supple. Trachea midline. CHEST/LUNGS: Clear to auscultated bilaterally, breathing nonlabored. No wheezes crackles or rhonchi. HEART/CARDIOVASCULAR: Regular in rate and rhythm. S1 and S2 positive. ABDOMEN: Abdomen is soft, nontender. Patient has normal bowel sounds. SKIN: There is no rash. Warm and dry. NEURO: No focal motor deficit. Follows command. MUSCULOSKELETAL: No joint effusion or tenderness. EXTRIMITY: No edema, no cyanosis or clubbing. PSYCH: Cooperative. Disposition: DC-01 TO HOME OR SELFCARE Time spent for discharge: 34 minutes Core Measure Documentation - Palliative Care Palliative Care/ Comfort Measures: Not Applicable - Core Measures Any of the following diagnoses?: none Exam - Constitutional Vitals: Temp Pulse Resp BP Pulse Ox 99.0 F 87 18 108/64 100 10/06/19 11:59 10/06/19 11:59 10/06/19 11:59 10/06/19 11:59 10/06/19 12:05 Plan Activity: advance as tolerated Weight Bearing Status: Weight Bear as Tolerated Diet: advance as tolerated Follow up with: PRIMARY CAREMD [Primary Care Provider] - 3-5 Days JULIAN PETERSEN MD [Staff Physician] - 7 Days Prescriptions: Zonisamide [Zonisamide] 500 mg PO DAILY #30
== END 2019-10-06 15:36 | disposition home or self-care (01) ==
LOC: ED 12:29 → 4A 16:38
PROVIDERS: ADMIT Internal Medicine; ATTEND Internal Medicine
DX: G40.901 Epilepsy, unspecified, not intractable, with status epilepticus (principal); R41.0 Disorientation, unspecified; E87.2 Acidosis; N39.0 Urinary tract infection, site not specified; J45.20 Mild intermittent asthma, uncomplicated; D72.829 Elevated white blood cell count, unspecified; F12.10 Cannabis abuse, uncomplicated; F15.10 Other stimulant abuse, uncomplicated; Z79.899 Other long term (current) drug therapy; Z88.8 Allergy status to other drugs, medicaments and biological substances
CPT/HCPCS: 36415; 70450; 80048; 80307; 81001; 84703; 85025; 94760; 96361; 96365; 96367; 96372; 96375; 99284; G0378; J0696; J2060; J7030; Q2009; 96376

== ENCOUNTER 2019-11-15 12:52 | Emergency (ER) | payer OTHER ==
[2019-11-15 12:59] VITALS: BP 110/54
--- NOTE | 2019-11-15 13:22 | Emergency Department Report ---
ED Seizure HPI - General Chief Complaint: Seizure Stated Complaint: SEIZURE Time Seen by Provider: 11/15/19 13:12 Source: EMS Mode of arrival: Ambulatory Limitations: No Limitations - History of Present Illness Initial Comments: Ms Duran is a 34 yo female with hx of seizure on Keppra who presents with seizure. She did not take her dose last night. She feels well. She denies pain or trauma. She desires to go home. MD Complaint: seizure -: This afternoon Witnessed:: Yes Trauma: No Seizure History: known seizure disorder Place: street/outdoors Possible Precipitating Event: none - Related Data Previous Rx's Medication Instructions Recorded Last Taken Type Zonisamide [Zonisamide] 500 mg PO DAILY #30 10/27/19 Unknown Rx Allergies Allergy/AdvReac Type Severity Reaction Status Date / Time levetiracetam [From Keppra] Allergy Unknown Verified 09/30/18 10:50 ED Review of Systems ROS: Stated complaint: SEIZURE Other details as noted in HPI Comment: All other systems reviewed and negative Constitutional: denies: fever, malaise Respiratory: denies: cough Cardiovascular: denies: chest pain Gastrointestinal: denies: abdominal pain, nausea, vomiting ED Past Medical Hx - Past Medical History Previous Medical History?: Yes Hx Seizures: Yes Hx Asthma: Yes (Per ER record) - Surgical History Past Surgical History?: No - Social History Smoking Status: Never Smoker Substance Use Type: None - Medications Home Medications: Home Medications Medication Instructions Recorded Confirmed Last Taken Type Zonisamide [Zonisamide] 500 mg PO DAILY #30 10/27/19 Unknown Rx ED Physical Exam - General Limitations: No Limitations General appearance: alert, in no apparent distress, other (GCS 15) - Head Head exam: Present: atraumatic, normocephalic - Eye Eye exam: Present: normal appearance - ENT ENT exam: Present: mucous membranes moist - Neck Neck exam: Present: normal inspection, full ROM - Respiratory Respiratory exam: Present: normal lung sounds bilaterally. Absent: respiratory distress - Cardiovascular Cardiovascular Exam: Present: regular rate, normal rhythm. Absent: systolic murmur, diastolic murmur, rubs, gallop - GI/Abdominal GI/Abdominal exam: Present: soft, normal bowel sounds. Absent: distended, tenderness, guarding, rebound - Extremities Exam Extremities exam: Present: normal inspection - Back Exam Back exam: Present: normal inspection - Neurological Exam Neurological exam: Present: alert, oriented X3, normal gait - Psychiatric Psychiatric exam: Present: normal affect, normal mood - Skin Skin exam: Present: warm, dry, intact, normal color. Absent: rash ED Course Vital Signs 11/15/19 12:52 Temperature 99.2 F Pulse Rate 90 Respiratory 10 L Rate Blood Pressure 110/54 Blood Pressure 110/54 [Right] O2 Sat by Pulse 97 Oximetry ED Medical Decision Making - Medical Decision Making Ms. Duran has hx of seizure disorder. She has experienced a breakthrough seizure today. She declined further treatment and evaluation in the ED. I re commended IV or PO Keppra load and benzodiazepine to prevent recurrent seizure. She declined. She is leaving AMA from the ED. She has decision making capacity. She understands the risk of seizure, trauma and brain/head injury. Critical care attestation.: If time is entered above; I have spent that time in minutes in the direct care of this critically ill patient, excluding procedure time. ED Disposition Clinical Impression: Seizure, Seizure disorder Disposition: DC-07 LEFT AGAINST MED ADVICE Is pt being admited?: No Does the pt Need Aspirin: No Condition: Stable Forms: AMA Form
== END 2019-11-15 13:31 | disposition left against medical advice (07) ==
LOC: ED 12:52
DX: G40.909 Epilepsy, unspecified, not intractable, without status epilepticus (principal); J45.909 Unspecified asthma, uncomplicated; Z79.899 Other long term (current) drug therapy; Z88.8 Allergy status to other drugs, medicaments and biological substances

== ENCOUNTER 2020-04-17 19:44 | Inpatient (IN) | payer OTHER ==
[2020-04-17] MEDS ORDERED: SODIUM CHLORIDE 0.9% 1000 ML 1,000 ML IV ONE (20:14)
[2020-04-17] MEDS ORDERED: LORazepam 2 MG/ML VIAL ONE (20:25)
[2020-04-17] MEDS ORDERED: PHENYTOIN 1,000 MG in SODIUM CHLORIDE 0.9% 250ML 250 ML IV ONE (20:35)
[2020-04-17] MEDS ORDERED: LORazepam 2 MG/ML VIAL IV ONE ×5 (20:35→21:24)
[2020-04-17 20:52] LABS: Hemoglobin 12.3 gm/dl (10.1-14.3); Mean Corpuscular HGB Conc 33 % (30-34); Mean Corpuscular Volume 94 fl (79-97); Platelet Count 304 K/mm3 (140-440); Red Blood Count 3.92 M/mm3 (3.65-5.03); Red Cell Distribution Width 14.2 % (13.2-15.2)
[2020-04-17 21:16] LABS: Alanine Aminotransferase 7 units/L (7-56); BUN/Creatinine Ratio 9; Blood Urea Nitrogen 9 mg/dL (7-17); Hemolysis Index 6
--- NOTE | 2020-04-17 21:39 | Emergency Department Report ---
ED Seizure HPI - General Chief Complaint: Seizure Stated Complaint: SEIZURE Time Seen by Provider: 04/17/20 20:14 Source: EMS Mode of arrival: Stretcher Limitations: Altered Mental Status - History of Present Illness Initial Comments: 33-year-old -[place] female with history of seizure, presents the ED after having a couple of seizures prior to arrival, EMS witnessed 1 seizures. Last seizure lasted around 2 minutes, patient was then brought to ED via EMS. Upon arrival to ED, patient had another 2-minute seizures, which resolved, and she proceeded to have several seizures in ED resolved by Ativan. Patient is now postictal. MD Complaint: seizure -: Gradual Description of Episode: loss of consciousness - Related Data Previous Rx's Medication Instructions Recorded Last Taken Type Zonisamide [Zonisamide] 500 mg PO DAILY #30 10/27/19 Unknown Rx Allergies Allergy/AdvReac Type Severity Reaction Status Date / Time levetiracetam [From Keppra] Allergy Unknown Verified 09/30/18 10:50 ED Review of Systems ROS: Stated complaint: SEIZURE Other details as noted in HPI Comment: All other systems reviewed and negative Gastrointestinal: denies: nausea, vomiting Neurological: confusion, other (Seizures) ED Past Medical Hx - Past Medical History Hx Seizures: Yes Hx Asthma: Yes (Per ER record) - Social History Smoking Status: Unknown if ever smoked Substance Use Type: None - Medications Home Medications: Home Medications Medication Instructions Recorded Confirmed Last Taken Type Zonisamide [Zonisamide] 500 mg PO DAILY #30 10/27/19 Unknown Rx ED Physical Exam - General Limitations: Altered Mental Status General appearance: other (Appears postictal) - Head Head exam: Present: atraumatic, normocephalic - Eye Eye exam: Present: normal appearance - ENT ENT exam: Present: normal exam - Neck Neck exam: Present: normal inspection, full ROM - Respiratory Respiratory exam: Present: normal lung sounds bilaterally - Cardiovascular Cardiovascular Exam: Present: regular rate, normal rhythm - GI/Abdominal GI/Abdominal exam: Present: soft - Neurological Exam Neurological exam: Present: altered (Postictal) - Skin Skin exam: Present: warm, dry ED Course Vital Signs 04/17/20 19:52 Temperature 99.4 F Pulse Rate 90 Respiratory 16 Rate Blood Pressure 98/48 [Right] O2 Sat by Pulse 97 Oximetry - Reevaluation(s) Reevaluation #1: 04/17/20 22:27 7 seizures, requiring Ativan, will admit for further treatment. ED Medical Decision Making - Lab Data Result diagrams: 04/17/20 Unknown 04/17/20 Unknown Critical care attestation.: If time is entered above; I have spent that time in minutes in the direct care of this critically ill patient, excluding procedure time. ED Disposition Clinical Impression: Seizure Disposition: DC-09 OP ADMIT IP TO THIS HOSP Is pt being admited?: Yes Condition: Stable Referrals: PRIMARY CARE, [Primary Care Provider] - 3-5 Days
[2020-04-17] MEDS ORDERED: MORPHINE 2 MG/1 ML INJ IV PRN (22:18)
[2020-04-17] MEDS ORDERED: MAGNESIUM HYDROXIDE (MOM) ORAL LIQD UDC PO PRN (22:18)
[2020-04-17] MEDS ORDERED: ACETAMINOPHEN 325 MG TAB PO PRN (22:18)
[2020-04-17] MEDS ORDERED: ONDANSETRON 4 MG/2 ML INJ IV PRN (22:18)
--- NOTE | 2020-04-17 22:26 | History and Physical Report ---
History of Present Illness Date of examination: 04/17/20 Date of admission: 04/17/2020 Chief complaint: Seizures History of present illness: 33-year-old -Citizen Of [place] female with known history of seizure presenting to the emergency room today via EMS for seizure disorder. Seizure episode was witnessed by us EMS in route to the hospital which lasted for about 2 minutes. Upon arrival and in the emergency room patient had another episode of seizure activity lasting almost 2 minutes. She is said to have multiple episodes of seizure activity while in the ER. Patient is known not to be compliant with her medications. She was postictal during my evaluation. Work-up in the emergency room was unremarkable and patient has been loaded with Dilantin. She has been admitted for status epilepticus. Past History Past Medical History: other (Asthma) Past Surgical History: No surgical history Social history: no significant social history Family history: no significant family history Medications and Allergies Allergies Allergy/AdvReac Type Severity Reaction Status Date / Time levetiracetam [From Kera] Allergy Unknown Verified 09/30/18 10:50 Home Medications Medication Instructions Recorded Confirmed Last Taken Type Zonisamide [Zonisamide] 500 mg PO DAILY #30 10/27/19 04/18/20 04/16/20 Rx Review of Systems ROS unobtainable: due to mental status Exam - Constitutional Vitals: Temp Pulse Resp BP Pulse Ox 99.4 F 90 16 98/48 97 04/17/20 19:52 04/17/20 19:52 04/17/20 19:52 04/17/20 19:52 04/17/20 19:52 General appearance: Present: no acute distress, well-nourished - EENT Eyes: Present: PERRL, EOM intact. Absent: scleral icterus ENT: hearing intact, clear oral mucosa, dentition normal - Neck Neck: Present: supple, normal ROM - Respiratory Respiratory effort: normal Respiratory: bilateral: CTA - Cardiovascular Rhythm: regular Heart Sounds: Present: S1 & S2. Absent: gallop, systolic murmur, diastolic murmur, rub - Extremities Extremities: no ischemia, pulses intact, pulses symmetrical, No edema, Full ROM Peripheral Pulses: within normal limits - Abdominal General gastrointestinal: Present: soft, non-tender, non-distended, normal bowel sounds. Absent: mass - Integumentary Integumentary: Present: clear, warm, dry. Absent: rash - Musculoskeletal Musculoskeletal: strength equal bilaterally - Psychiatric Psychiatric: cooperative, agitated (Mildly) - Neurologic Neurologic: CNII-XII intact, no focal deficits, moves all extremities Results - Labs CBC & Chem 7: 04/17/20 Unknown 04/17/20 Unknown Labs: Abnormal lab results 04/17/20 04/17/20 Range/Units Unknown Unknown WBC 14.2 H (4.5-11.0) K/mm3 Carbon Dioxide 13 L (22-30) mmol/L Glucose 106 H (65-100) mg/dL Assessment and Plan - Patient Problems (1) Status epilepticus Current Visit: No Status: Acute Plan to address problem: Patient has been started on IV Dilantin. We also placed on IV lorazepam as needed. We implement seizure precautions and also place a consult to neurology for further evaluation and recommendation. (2) DVT prophylaxis Current Visit: No Status: Acute Plan to address problem: Patient placed on subcutaneous Lovenox. (3) Full code status Current Visit: Yes Status: Acute
[2020-04-17] MEDS ORDERED: SODIUM CHLORIDE 0.9% 1000 ML 1,000 ML IV SCH (22:30)
[2020-04-17 22:58] LABS: Bilirubin,Urine NEG (Negative); Blood,Urine NEG (Negative); Color,Urine Yellow (Yellow); Mucus,Urine FEW /HPF; Protein,Urine <15 mg/dL mg/dL (Negative); RBC,Urine < 1.0 /HPF (0.0-6.0); Urobilinogen,Urine < 2.0 mg/dL (<2.0)
[2020-04-17 22:59] LABS: HCG Qualitative,Urine Negative (Negative)
[2020-04-18] MEDS ORDERED: LORazepam 2 MG/ML VIAL IV PRN (05:59)
[2020-04-18 06:19] LABS: Basophils # (Auto) 0.1 K/mm3 (0.0-0.1); Basophils % (Auto) 0.6 % (0.0-1.8); Hematocrit 39.6 % (30.3-42.9); Lymphocytes # (Auto) 2.3 K/mm3 (1.2-5.4); Lymphocytes % (Auto) 16.7 % (13.4-35.0); Mean Corpuscular HGB Conc 33 % (30-34); Mean Corpuscular Volume 94 fl (79-97); Monocytes # (Auto) 0.9 K/mm3 (0.0-0.8); Monocytes % (Auto) 6.9 % (0.0-7.3); Platelet Count 263 K/mm3 (140-440); Red Blood Count 4.22 M/mm3 (3.65-5.03); Red Cell Distribution Width 13.9 % (13.2-15.2)
[2020-04-18 06:29] LABS: INR 0.96 (0.87-1.13)
[2020-04-18 06:41] LABS: BUN/Creatinine Ratio 8; Blood Urea Nitrogen 6 mg/dL (7-17); Hemolysis Index 7
--- NOTE | 2020-04-18 14:31 | Progress Note ---
Assessment and Plan Assessment and plan: 33-year-old -Finnish female with known history of seizure presenting to the emergency room today via EMS for seizure disorder. Seizure episode was witnessed by us EMS in route to the hospital which lasted for about 2 minutes. Upon arrival and in the emergency room patient had another episode of seizure activity lasting almost 2 minutes. She is said to have multiple episodes of seizure activity while in the ER. Patient is known not to be compliant with her medications. She was postictal during my evaluation. Work-up in the emergency room was unremarkable and patient has been loaded with Dilantin. She has been admitted for status epilepticus. (1) Status epilepticus Current Visit: No Status: Acute Plan to address problem: Patient has been started on IV Dilantin. We also placed on IV lorazepam as needed. We implement seizure precautions and also place a consult to neurology for furth er evaluation and recommendation. Resume Home medications (2) Substance Abuse Patient denies any recent substance use. (3) DVT prophylaxis Current Visit: No Status: Acute Plan to address problem: Patient placed on subcutaneous Lovenox. (3) Full code status Current Visit: Yes Status: Acute Anticipate discharge in am if no further seizure. Per patient, her Neurologist told her she may experience breakthrough seizures. She does not drive History Interval history: Patient seen and examined, resting comfortable, no new seizure activity noted. Hospitalist Physical - Constitutional Vitals: Temp Pulse Resp BP Pulse Ox 97.8 F 74 18 115/80 100 04/18/20 02:31 04/18/20 02:31 04/18/20 02:31 04/18/20 02:31 04/18/20 02:31 General appearance: Present: no acute distress, well-nourished - EENT Eyes: Present: PERRL ENT: clear oral mucosa - Neck Neck: Present: supple, normal ROM - Respiratory Respiratory effort: normal Respiratory: bilateral: CTA - Cardiovascular Rhythm: regular Heart Sounds: Present: S1 & S2. Absent: systolic murmur, diastolic murmur - Extremities Extremities: no ischemia, pulses intact, pulses symmetrical, No edema, normal temperature, Full ROM Peripheral Pulses: within normal limits - Abdominal General gastrointestinal: soft, non-tender, non-distended, normal bowel sounds - Integumentary Integumentary: Present: clear, warm, dry - Psychiatric Psychiatric: appropriate mood/affect, intact judgment & insight, cooperative - Neurologic Neurologic: CNII-XII intact, moves all extremities - Allied Health Allied health notes reviewed: nursing Results - Labs CBC & Chem 7: 04/18/20 05:20 04/18/20 05:20 Labs: Laboratory Last Values WBC 13.4 K/mm3 (4.5-11.0) H 04/18/20 05:20 RBC 4.22 M/mm3 (3.65-5.03) 04/18/20 05:20 Hgb 13.0 gm/dl (10.1-14.3) 04/18/20 05:20 Hct 39.6 % (30.3-42.9) 04/18/20 05:20 MCV 94 fl (79-97) 04/18/20 05:20 MCH 31 pg (28-32) 04/18/20 05:20 MCHC 33 % (30-34) 04/18/20 05:20 RDW 13.9 % (13.2-15.2) 04/18/20 05:20 Plt Count 263 K/mm3 (140-440) 04/18/20 05:20 Lymph % (Auto) 16.7 % (13.4-35.0) 04/18/20 05:20 [place] % (Auto) 6.9 % (0.0-7.3) 04/18/20 05:20 Eos % (Auto) 0.0 % (0.0-4.3) 04/18/20 05:20 Baso % (Auto) 0.6 % (0.0-1.8) 04/18/20 05:20 Lymph # (Auto) 2.3 K/mm3 (1.2-5.4) 04/18/20 05:20 [place] # (Auto) 0.9 K/mm3 (0.0-0.8) H 04/18/20 05:20 Eos # (Auto) 0.0 K/mm3 (0.0-0.4) 04/18/20 05:20 Baso # (Auto) 0.1 K/mm3 (0.0-0.1) 04/18/20 05:20 Seg Neutrophils % 75.8 % (40.0-70.0) H 04/18/20 05:20 Seg Neutrophils # 10.2 K/mm3 (1.8-7.7) H 04/18/20 05:20 PT 13.0 Sec. (12.2-14.9) 04/18/20 05:20 INR 0.96 (0.87-1.13) 04/18/20 05:20 Sodium 143 mmol/L (137-145) 04/18/20 05:20 Potassium 3.8 mmol/L (3.6-5.0) 04/18/20 05:20 Chloride 107.9 mmol/L (98-107) H 04/18/20 05:20 Carbon Dioxide 22 mmol/L (22-30) D 04/18/20 05:20 Anion Gap 17 mmol/L 04/18/20 05:20 BUN 6 mg/dL (7-17) L 04/18/20 05:20 Creatinine 0.8 mg/dL (0.6-1.2) 04/18/20 05:20 Estimated GFR > 60 ml/min 04/18/20 05:20 BUN/Creatinine Ratio 8 % 04/18/20 05:20 Glucose 70 mg/dL (65-100) 04/18/20 05:20 Calcium 9.0 mg/dL (8.4-10.2) 04/18/20 05:20 Total Bilirubin < 0.20 mg/dL (0.1-1.2) 04/17/20 Unknown AST 13 units/L (5-40) 04/17/20 Unknown ALT 7 units/L (7-56) 04/17/20 Unknown Alkaline Phosphatase 53 units/L (35-129) 04/17/20 Unknown Total Protein 6.3 g/dL (6.3-8.2) 04/17/20 Unknown Albumin 4.0 g/dL (3.9-5) 04/17/20 Unknown Albumin/Globulin Ratio 1.7 % 04/17/20 Unknown Urine Color Yellow (Yellow) 04/17/20 Unknown Urine Turbidity Clear (Clear) 04/17/20 Unknown Urine pH 5.0 (5.0-7.0) 04/17/20 Unknown Ur Specific [place] 1.016 (1.003-1.030) 04/17/20 Unknown Urine Protein <15 mg/dl mg/dL (Negative) 04/17/20 Unknown Urine Glucose (UA) Neg mg/dL (Negative) 04/17/20 Unknown Urine Ketones Neg mg/dL (Negative) 04/17/20 Unknown Urine Blood Neg (Negative) 04/17/20 Unknown Urine Nitrite Neg (Negative) 04/17/20 Unknown Urine Bilirubin Neg (Negative) 04/17/20 Unknown Urine Urobilinogen < 2.0 mg/dL (<2.0) 04/17/20 Unknown Ur Leukocyte Esterase Neg (Negative) 04/17/20 Unknown Urine WBC (Auto) 1.0 /HPF (0.0-6.0) 04/17/20 Unknown Urine RBC (Auto) < 1.0 /HPF (0.0-6.0) 04/17/20 Unknown U Epithel Cells (Auto) < 1.0 /HPF (0-13.0) 04/17/20 Unknown Urine Mucus Few /HPF 04/17/20 Unknown Urine HCG, Qual Negative (Negative) 04/17/20 Unknown Day/IV: Voiding Method Toilet IV Catheter Type [Right] Peripheral IV Active Medications - Current Medications Current Medications: Generic Name Dose Route Start Last Admin Trade Name Freq PRN Reason Stop Dose Admin Acetaminophen 650 mg 04/17/20 22:18 Tylenol PO Q4H PRN Pain MILD(1-3)/Fever >100.5/CHRISTIANSON Alprazolam 2 mg 04/18/20 22:00 Xanax PO BID [facility] Aripiprazole 15 mg 04/19/20 10:00 Abilify PO QDAY TJ Clonidine HCl 0.2 mg 04/18/20 22:00 Catapres PO Q12HR [facility] Enoxaparin Sodium 40 mg 04/18/20 22:00 Enoxaparin SUB-Q QDAY@2200 [facility] Protocol Escitalopram Oxalate 20 mg 04/19/20 10:00 Lexapro PO QDAY TJ Gabapentin 600 mg 04/18/20 22:00 Gabapentin PO BID [facility] Sodium Chloride 1,000 mls @ 75 mls/hr 04/17/20 22:30 04/18/20 02:40 Nacl 0.9% 1000 Ml IV 75 mls/hr DIRECT TJ Administration Lorazepam 1 mg 04/18/20 05:59 Ativan IV Q4H PRN Seizures Magnesium Hydroxide 30 ml 04/17/20 22:18 Milk Of Magnesia PO Q4H PRN Constipation Morphine Sulfate 2 mg 04/17/20 22:18 Morphine IV Q4H PRN Pain, Moderate (4-6) Ondansetron HCl 4 mg 04/17/20 22:18 Zofran IV Q8H PRN Nausea And Vomiting Oxcarbazepine 600 mg 04/18/20 22:00 Trileptal PO BID TJ Sodium Chloride 10 ml 04/18/20 10:00 04/18/20 10:46 Sodium Chloride Flush Syringe 10 Ml IV Not Given BID TJ Sodium Chloride 10 ml 04/17/20 22:18 Sodium Chloride Flush Syringe 10 Ml IV PRN PRN LINE FLUSH
[2020-04-18] MEDS: ALPRAZolam 1 MG TAB PO SCH (21:27)
[2020-04-18] MEDS: GABAPENTIN 300 MG CAP PO SCH (21:28)
[2020-04-18] MEDS: OXcarbazepine 300 MG TAB PO SCH (21:28)
[2020-04-18] MEDS: cloNIDine 0.2 MG TAB PO SCH (21:29)
[2020-04-18] MEDS ORDERED: ENOXAPARIN 40 MG/0.4 ML INJ SUB-Q SCH (22:00)
[2020-04-19 08:31] LABS: Hematocrit 36.7 % (30.3-42.9); Hemoglobin 12.2 gm/dl (10.1-14.3); Mean Corpuscular HGB Conc 33 % (30-34); Mean Corpuscular Volume 95 fl (79-97); Platelet Count 236 K/mm3 (140-440); Red Blood Count 3.88 M/mm3 (3.65-5.03); Red Cell Distribution Width 13.6 % (13.2-15.2)
[2020-04-19] MEDS: ALPRAZolam 1 MG TAB PO SCH (09:33)
[2020-04-19] MEDS: GABAPENTIN 300 MG CAP PO SCH (09:33)
[2020-04-19] MEDS: cloNIDine 0.2 MG TAB PO SCH (09:33)
[2020-04-19] MEDS: OXcarbazepine 300 MG TAB PO SCH (09:33)
[2020-04-19] MEDS ORDERED: ARIPiprazole 15 MG TAB PO SCH (10:00)
[2020-04-19] MEDS ORDERED: ESCITALOPRAM 10 MG/10 ML ORAL LIQD PO SCH (10:00)
--- NOTE | 2020-04-19 13:06 | Discharge Summary ---
Providers - Providers Date of Admission: 04/18/20 14:51 Attending physician: ADITYA MILLER MD 04/17/20 22:18 Consult to Physician [CONS] Routine Comment: Consulting Provider: WILLAM DUDLEY Physician Instructions: Reason For Exam: SEIZURE DISORDER Primary care physician: [facility] [employer]SULTANT Hospitalization Reason for admission: SEIZURE Condition: Stable Hospital course: 33-year-old -Welsh female with known history of seizure presenting to the emergency room today via EMS for seizure disorder. Seizure episode was witnessed by us EMS in route to the hospital which lasted for about 2 minutes. Upon arrival and in the emergency room patient had another episode of seizure activity lasting almost 2 minutes. She is said to have multiple episodes of seizure activity while in the ER. Patient is known not to be compliant with her medications. She was postictal during my evaluation. Work-up in the emergency room was unremarkable and patient has been loaded with Dilantin. She has been admitted for status epilepticus. Patient was observed overnight. When I tried to discuss further about her medications considering multiple different medications that she is on which is sedating she was pretty upset. She states that she has her medicines at home but her doctor told her that she was not well have a prescription seizures. She is clinically improved today will be discharged to continue to follow-up with her primary neurologist. She understands to avoid driving she states that she does not drive at this time. (1) Status epilepticus (2) Substance Abuse Patient denies any recent substance use. Disposition: TO HOME OR SELFCARE Time spent for discharge: 35-minute Core Measure Documentation - Palliative Care Palliative Care/ Comfort Measures: Not Applicable - Core Measures Any of the following diagnoses?: none Exam - Physical Exam Narrative exam: VITAL SIGNS: Reviewed. GENERAL: The patient appears normally developed, Vital signs as documented. HEAD: No signs of head trauma. EYES: Pupils are equal. Extraocular motions intact. EARS: Hearing grossly intact. MOUTH: Oropharynx is normal. NECK: No adenopathy, no JVD. CHEST: Chest with clear breath sounds bilaterally. No wheezes, rales, or rhonchi. CARDIAC: Regular rate and rhythm. S1 and S2, without murmurs, gallops, or rubs. VASCULAR: No Edema. Peripheral pulses normal and equal in all extremities. ABDOMEN: Soft, non tender and non distended. No rebound or guarding, and no masses palpated. Bowel Sounds normal. MUSCULOSKELETAL: Good range of motion of all major joints. Extremities without clubbing, cyanosis or edema. NEUROLOGIC EXAM: Alert and oriented x 3 No focal sensory or strength deficits. Speech normal. Follows commands. PSYCHIATRIC: Mood normal. SKIN: detail exam as documented in skin assessment - Constitutional Vitals: Temp Pulse Resp BP Pulse Ox 97.7 F 67 18 115/80 100 04/19/20 04:34 04/19/20 04:34 04/19/20 04:34 04/19/20 04:34 04/19/20 04:34 Plan Activity: no driving until cleared by PCP, fall precautions Diet: low fat Special Instructions: record daily weights, record daily BP diary Additional Instructions: Follow with your primary neurologist. Continue all home medications as patient states that she still has at home medications. Follow up with: PRIMARY MD ÁNGEL [Primary Care Provider] - 3-5 Days
[2020-04-19 13:55] VITALS: BP 105/64
== END 2020-04-19 16:17 | disposition home or self-care (01) | DRG 101 ==
LOC: ED 19:44 → 3A 22:14 → OBSVTOIN 04-18 14:51
PROVIDERS: ADMIT Internal Medicine Geriatric Medicine; ATTEND Internal Medicine
PROC: 05H933Z Insertion of Infusion Device into Right Brachial Vein, Percutaneous Approach (ICD-10-PCS; principal; 2020-04-17)
PROC: B54MZZA Ultrasonography of Right Upper Extremity Veins, Guidance (ICD-10-PCS; 2020-04-17)
DX: G40.801 Other epilepsy, not intractable, with status epilepticus (principal); F19.10 Other psychoactive substance abuse, uncomplicated; Z88.8 Allergy status to other drugs, medicaments and biological substances; Z79.899 Other long term (current) drug therapy
CPT/HCPCS: 36415; 80048; 80053; 81001; 81025; 85025; 85027; 85610; 96374; 96375; G0378; J1165; J1650; J2060; J7030; J7050

== ENCOUNTER 2020-12-09 14:56 | Emergency (ER) | payer OTHER ==
[2020-12-09] MEDS ORDERED: SODIUM CHLORIDE 0.9% 1000 ML 1,000 ML IV ONE (15:05)
--- NOTE | 2020-12-09 15:11 | Emergency Department Report ---
ED Seizure HPI - General Stated Complaint: SEIZURE Time Seen by Provider: 12/09/20 15:05 Source: EMS - History of Present Illness Initial Comments: Patient is a 35 years old female with history of seizure on Trileptal. Patient brought to the emergency room via EMS from home for evaluation of multiple seizures. Patient had 2 episode of seizure in route to the hospital. EMS gave a Versed 5 mg IM. Patient is currently postictal. MD Complaint: seizure -: This morning Description of Episode: loss of consciousness, tonic-clonic movement, post-event confusion Witnessed:: Yes Trauma: No Seizure History: known seizure disorder - Related Data Previous Rx's Medication Instructions Recorded Last Taken Type Zonisamide [Zonisamide] 500 mg PO DAILY #30 10/27/19 04/16/20 Rx Allergies Allergy/AdvReac Type Severity Reaction Status Date / Time levetiracetam [From Keppra] Allergy Unknown Verified 09/30/18 10:50 ED Review of Systems ROS: Stated complaint: SEIZURE Other details as noted in HPI Comment: All other systems reviewed and negative Constitutional: denies: chills, fever Respiratory: shortness of breath. denies: cough, SOB with exertion, SOB at rest, wheezing Cardiovascular: denies: chest pain, palpitations, dyspnea on exertion Gastrointestinal: denies: abdominal pain, nausea, vomiting Neurological: denies: headache, weakness, numbness, paresthesias, confusion ED Past Medical Hx - Past Medical History Hx Seizures: Yes Hx Asthma: Yes (Per ER record) - Social History Smoking Status: Current Every Day Smoker - Medications Home Medications: Home Medications Medication Instructions Recorded Confirmed Last Taken Type Zonisamide [Zonisamide] 500 mg PO DAILY #30 10/27/19 04/18/20 04/16/20 Rx ED Physical Exam - General General appearance: postictal - Head Head exam: Present: atraumatic, normocephalic, normal inspection - Eye Eye exam: Present: normal appearance - ENT ENT exam: Present: normal exam, normal orophraynx, mucous membranes moist - Neck Neck exam: Present: normal inspection, full ROM. Absent: tenderness, meningismus - Respiratory Respiratory exam: Present: normal lung sounds bilaterally - Cardiovascular Cardiovascular Exam: Present: regular rate, normal rhythm, normal heart sounds - GI/Abdominal GI/Abdominal exam: Present: soft, normal bowel sounds. Absent: distended, tenderness, guarding, rebound, rigid, organomegaly, mass, bruit, pulsatile mass, hernia - Extremities Exam Extremities exam: Present: normal inspection, full ROM, normal capillary refill. Absent: tenderness - Back Exam Back exam: Present: normal inspection, full ROM. Absent: CVA tenderness (R), CVA tenderness (L) - Neurological Exam Neurological exam: Present: alert, oriented X3, CN II-XII intact - Psychiatric Psychiatric exam: Present: normal mood - Skin Skin exam: Present: warm, intact, normal color ED Course Vital Signs 12/09/20 12/09/20 12/09/20 15:20 15:26 15:30 Temperature 99.0 F Pulse Rate 112 H 113 H Respiratory 23 21 Rate Blood Pressure 110/65 O2 Sat by Pulse 100 100 Oximetry ED Medical Decision Making - Lab Data Result diagrams: 12/09/20 15:29 12/09/20 15:29 - Medical Decision Making Patient is a 35 years old female with history of seizure on Trileptal. Patient brought to the emergency room via EMS from home for evaluation of multiple seizures. Patient had 2 episode of seizure in route to the hospital. EMS gave a Versed 5 mg IM. Patient is currently postictal. Patient remained stable in the ER with no seizure activity. Patient now is alert, oriented x3 in no acute distress. Patient stated that she missed her medication yesterday but she does have medication at home. I counseled the patient about medication compliant. I advised patient to follow-up with her neurologist in the next 2 to 3 days and to return to the ER if she develop any new symptoms. Critical care attestation.: If time is entered above; I have spent that time in minutes in the direct care of this critically ill patient, excluding procedure time. ED Disposition Clinical Impression: Seizure Disposition: DC-01 TO HOME OR SELFCARE Is pt being admited?: No Condition: Stable Instructions: Seizure, Adult Referrals: PRIMARY CARE, [Primary Care Provider] - 3-5 Days
[2020-12-09 16:15] LABS: Albumin 4.7 g/dL (3.9-5); BUN/Creatinine Ratio 9; Blood Urea Nitrogen 9 mg/dL (7-17); Calcium 9.8 mg/dL (8.4-10.2); Hemolysis Index 3
[2020-12-09 16:22] LABS: Alanine Aminotransferase < 5 units/L (7-56); Bilirubin,Direct < 0.2 mg/dL (0-0.2)
[2020-12-09 16:30] LABS: Basophils % (Auto) 0.3 % (0.0-1.8); Eosinophils % (Auto) 0.2 % (0.0-4.3); Hematocrit 38.4 % (30.3-42.9); Lymphocytes # (Auto) 0.9 K/mm3 (1.2-5.4); Lymphocytes % (Auto) 6.8 % (13.4-35.0); Mean Corpuscular HGB Conc 34 % (30-34); Mean Corpuscular Volume 96 fl (79-97); Monocytes # (Auto) 0.8 K/mm3 (0.0-0.8); Platelet Count 313 K/mm3 (140-440); Red Blood Count 3.99 M/mm3 (3.65-5.03); Red Cell Distribution Width 14.3 % (13.2-15.2)
[2020-12-09 19:28] VITALS: BP 135/81
== END 2020-12-09 20:13 | disposition home or self-care (01) ==
LOC: ED 14:56
DX: G40.909 Epilepsy, unspecified, not intractable, without status epilepticus (principal); F17.200 Nicotine dependence, unspecified, uncomplicated; Z79.899 Other long term (current) drug therapy; Z88.8 Allergy status to other drugs, medicaments and biological substances
CPT/HCPCS: 36415; 80048; 80076; 84703; 85025; 96360; 99284; J7030; 80320; G0480

== ENCOUNTER 2021-04-04 13:00 | Emergency (ER) | payer OTHER ==
[2021-04-04] MEDS ORDERED: SODIUM CHLORIDE 0.9% 1000 ML 1,000 ML IV ONE ×2 (13:09→15:01)
--- NOTE | 2021-04-04 13:14 | Emergency Department Report ---
ED Seizure HPI - General Stated Complaint: SEIZURE Time Seen by Provider: 04/04/21 13:02 - History of Present Illness Initial Comments: Patient presents by EMS secondary to a seizure. She had multiple seizures in route. EMS administered Versed 5 mg IM prior to arrival. They administer that after her fourth generalized tonic-clonic seizure. They report that they were called to the residence for seizure activity. Patient had been postictal. She has had recurrent seizures. She is known to be noncompliant with medication. There was no known trauma. They could not establish an IV. They administered Versed IM. There was no other history obtai nic. History cannot be obtained for the patient secondary to altered mental status at this time. - Related Data Previous Rx's Medication Instructions Recorded Last Taken Type Zonisamide [Zonisamide] 500 mg PO DAILY #30 10/27/19 04/16/20 Rx Allergies Allergy/AdvReac Type Severity Reaction Status Date / Time levetiracetam [From Keppra] Allergy Unknown Verified 09/30/18 10:50 ED Review of Systems ROS: Stated complaint: SEIZURE Other details as noted in HPI Comment: Unobtainable due to pts medical conditions (Altered mental status, multifactorial) Other: Once patient is awake, she denies recent head trauma, fevers, chills, cough, visual change, sore throat, neck pain, back pain, chest pain, abdominal pain, vomiting, diarrhea, dysuria, hematuria, paresthesias in the extremities, bruising, weight loss, polydipsia. ED Past Medical Hx - Past Medical History Hx Seizures: Yes Hx Asthma: Yes (Per ER record) Additional medical history: Cannot be obtained from the patient secondary to altered mental status. Old records have been reviewed. - Surgical History Additional Surgical History: Cannot be obtained for the patient secondary to altered mental status - Social History Smoking Status: Current Every Day Smoker Substance Use Type: Other (Cannot be obtained for the patient secondary to alter ed status) - Medications Home Medications: Home Medications Medication Instructions Recorded Confirmed Last Taken Type Zonisamide [Zonisamide] 500 mg PO DAILY #30 10/27/19 04/18/20 04/16/20 Rx ED Physical Exam - General Limitations: Altered Mental Status (Postictal and sedate), Other (Pulse ox was noted to normal) General appearance: other (Stuporous with sonorous respirations.) - Head Head exam: Present: atraumatic, normocephalic, normal inspection - Eye Eye exam: Present: normal appearance, other (Pinpoint pupils at 2mm with left conjugate gaze). Absent: scleral icterus, conjunctival injection - ENT ENT exam: Present: mucous membranes moist, normal external ear exam, other (No pooling secretions) - Neck Neck exam: Present: normal inspection, other (No crepitus. Trachea midline.) - Respiratory Respiratory exam: Present: rhonchi (Diffuse), other (Sonorous respirations). Absent: respiratory distress - Cardiovascular Cardiovascular Exam: Present: normal rhythm, tachycardia - GI/Abdominal GI/Abdominal exam: Present: soft. Absent: pulsatile mass - Extremities Exam Extremities exam: Present: normal capillary refill. Absent: pedal edema - Back Exam Back exam: Present: normal inspection - Neurological Exam Neurological exam: Present: altered - Psychiatric Psychiatric exam: Present: other ([place]ed[place]) - Skin Skin exam: Present: warm, dry ED Course - Reevaluation(s) Reevaluation #1: 04/04/21 13:14 EMS was met upon arrival. IV and labs were ordered. Old records reviewed. Reevaluation #2: 04/04/21 15:02 Patient is starting to wake up. Labs have been reviewed. Bicarb is low. A second liter of saline has been ordered. Reevaluation #3: 04/04/21 15:19 Work-up is complete. Patient is now awake and conversant. She admits that she has been taking her medication. She also has been confronted about her polypharmacy use regarding amphetamines as well as cocaine. She was subsequently discharged. ED Medical Decision Making - Lab Data Result diagrams: 04/04/21 14:57 04/04/21 14:09 Rhythm strip: Sinus tachycardia without ectopy. Monitor observe 10 seconds. - Medical Decision Making Patient presents by EMS with recurrent seizures. She does have polypharmacy on board and there is some report that she had been noncompliant with medication. There is no focal neurologic finding that would suggest intracranial mass lesion. She does not have any profound electrolyte derangement that would account for seizure activity. There is no obvious infectious pathology. Patient was treated symptomatically and referred for outpatient evaluation. She has been aggressively hydrated given her bicarb of 11. She does not appear to be septic or toxic. She verbalizes understanding of outpatient management. There is no trauma to suggest subdural or epidural hematomas. Critical Care Time: No Critical care attestation.: If time is entered above; I have spent that time in minutes in the direct care of this critically ill patient, excluding procedure time. ED Disposition Clinical Impression: Seizure, Cocaine abuse, Amphetamine abuse Disposition: HOME / SELF CARE / HOMELESS Is pt being admited?: No Condition: Stable Instructions: Stimulant Use Disorder-Cocaine, Epilepsy, Jfck-jc-Alce, Substance Use Disorder Additional Instructions: Drink plenty water. Avoid stimulants. Follow-up with your regular doctor and your neurologist to discuss your medication. Take your medication as prescribed. Return for problems. Referrals: PRIMARY CARE, [Referring] - 3-5 Days ORLANDO BUENO MD [Staff Physician] - 3-5 Days
[2021-04-04 14:04] LABS: Amphetamine Screen,Urine PRESUMPTIVE POSITIVE; Benzodiazepines Screen,Urine PRESUMPTIVE NEGATIVE; Cannabinoid Screen,Urine PRESUMPTIVE POSITIVE; Cocaine Screen,Urine PRESUMPTIVE POSITIVE; Methadone Screen,Urine PRESUMPTIVE NEGATIVE; Opiate Screen,Urine PRESUMPTIVE NEGATIVE
[2021-04-04 14:55] LABS: BUN/Creatinine Ratio 5; Blood Urea Nitrogen 5 mg/dL (7-17); Calcium 10.4 mg/dL (8.4-10.2); Hemolysis Index 29
[2021-04-04 15:13] LABS: Hematocrit 39.9 % (30.3-42.9); Hemoglobin 13.8 gm/dl (10.1-14.3); Mean Corpuscular HGB Conc 35 % (30-34); Mean Corpuscular Volume 95 fl (79-97); Platelet Count 353 K/mm3 (140-440); Red Blood Count 4.21 M/mm3 (3.65-5.03); Red Cell Distribution Width 13.9 % (13.2-15.2)
[2021-04-04 15:58] LABS: RBC Morphology Normal; Total Cells Counted 100; Toxic Granulation 1+
[2021-04-04 15:59] LABS: Platelet Estimate Consistent w Auto
[2021-04-04 18:10] VITALS: BP 127/76
== END 2021-04-04 18:13 | disposition home or self-care (01) ==
LOC: ED 13:00
DX: R56.9 Unspecified convulsions (principal); F14.10 Cocaine abuse, uncomplicated; F15.10 Other stimulant abuse, uncomplicated; F17.200 Nicotine dependence, unspecified, uncomplicated; J45.909 Unspecified asthma, uncomplicated
CPT/HCPCS: 36415; 80048; 80307; 82550; 83735; 84703; 85007; 85025; 96360; 96361; 99283

== ENCOUNTER 2021-04-26 15:10 | Emergency (ER) | payer OTHER ==
[2021-04-26] MEDS ORDERED: LORazepam 2 MG/ML VIAL IM ONE (15:21)
[2021-04-26] MEDS ORDERED: FOSPHENYTOIN 500 MG PE/10 ML INJ IV ONE (15:25)
--- NOTE | 2021-04-26 15:28 | Emergency Department Report ---
ED Seizure HPI - General Stated Complaint: seizure Time Seen by Provider: 04/26/21 15:18 Source: patient, EMS, old records reviewed Mode of arrival: Ambulatory Limitations: Altered Mental Status - History of Present Illness Initial Comments: Chief complaint: Seizure HPI: Is a 35-year-old female with history seizure disorder who presents via EMS. Possibly for seizures. Patient was altered. According to electronic medical record patient is taking zonisamide for seizure. Patient is currently altered. MD Complaint: seizure -: This afternoon Description of Episode: tonic-clonic movement Witnessed:: Yes Trauma: No Seizure History: known seizure disorder Place: home Possible Precipitating Event: none - Related Data Home Medications Medication Instructions Recorded Confirmed Last Taken Gabapentin 04/26/21 Unknown Lexapro 04/26/21 Unknown Trileptal 04/26/21 Unknown Previous Rx's Medication Instructions Recorded Last Taken Type Zonisamide [Zonisamide] 500 mg PO DAILY #30 10/27/19 04/16/20 Rx Zonisamide 500 mg PO DAILY 30 Days #150 04/26/21 Unknown Rx capsule Allergies Allergy/AdvReac Type Severity Reaction Status Date / Time levetiracetam [From Keppra] Allergy Unknown Verified 09/30/18 10:50 ED Review of Systems ROS: Stated complaint: seizure Other details as noted in HPI Comment: Unobtainable due to pts medical conditions ED Past Medical Hx - Past Medical History Previous Medical History?: Yes Hx Seizures: Yes Hx Asthma: Yes (Per ER record) Additional medical history: Cannot be obtained from the patient secondary to altered mental status. Old records have been reviewed. - Surgical History Additional Surgical History: Cannot be obtained for the patient secondary to altered mental status - Social History Smoking Status: Current Every Day Smoker Substance Use Type: Other (Cannot be obtained for the patient secondary to altered status) - Medications Home Medications: Home Medications Medication Instructions Recorded Confirmed Last Taken Type Zonisamide [Zonisamide] 500 mg PO DAILY #30 10/27/19 04/18/20 04/16/20 Rx Gabapentin 04/26/21 Unknown History Lexapro 04/26/21 Unknown History Trileptal 04/26/21 Unknown History Zonisamide 500 mg PO DAILY 30 Days #150 04/26/21 Unknown Rx capsule ED Physical Exam - General Limitations: Altered Mental Status General appearance: alert, in no apparent distress - Head Head exam: Present: atraumatic, normocephalic - Eye Eye exam: Present: normal appearance - ENT ENT exam: Present: mucous membranes moist - Neck Neck exam: Present: normal inspection, full ROM - Respiratory Respiratory exam: Present: normal lung sounds bilaterally. Absent: respiratory distress, wheezes, rales, rhonchi - Cardiovascular Cardiovascular Exam: Present: regular rate, normal rhythm, normal heart sounds. Absent: systolic murmur, diastolic murmur, rubs, gallop - GI/Abdominal GI/Abdominal exam: Present: soft, normal bowel sounds. Absent: distended, tende rness, guarding, rebound - Extremities Exam Extremities exam: Present: normal inspection - Back Exam Back exam: Present: normal inspection - Neurological Exam Neurological exam: Present: altered - Psychiatric Psychiatric exam: Present: flat affect - Skin Skin exam: Present: warm, dry, intact, normal color. Absent: rash ED Course Vital Signs 04/26/21 04/26/21 04/26/21 15:19 15:20 15:30 Temperature 97.6 F 98.5 F Pulse Rate 86 91 H 83 Respiratory 16 19 17 Rate Blood Pressure 101/74 Blood Pressure 113/76 [Left] O2 Sat by Pulse 100 97 98 Oximetry 04/26/21 04/26/21 04/26/21 15:37 16:00 16:30 Temperature Pulse Rate 79 92 H Respiratory 22 14 Rate Blood Pressure 107/65 105/62 Blood Pressure [Left] O2 Sat by Pulse 96 92 99 Oximetry 04/26/21 17:00 Temperature Pulse Rate 79 Respiratory 17 Rate Blood Pressure 105/62 Blood Pressure [Left] O2 Sat by Pulse 99 Oximetry ED Medical Decision Making - Medical Decision Making Breakthrough seizure: Patient received fosphenytoin load IV in emergency department. I reassessed patient. She is awake alert. She has mild headache. She does not have any other concerns. She will be discharged home with referral to neurologist. She did request refills of medication. I provided refills of zonisamide. Critical care attestation.: If time is entered above; I have spent that time in minutes in the direct care of this critically ill patient, excluding procedure time. ED Disposition Clinical Impression: Seizure, Breakthrough seizure Disposition: HOME / SELF CARE / HOMELESS Is pt being admited?: No Does the pt Need Aspirin: No Condition: Stable Prescriptions: Zonisamide 500 mg PO DAILY 30 Days #150 capsule Referrals: FARHANA DODSON MD [Referring] - 3-5 Days
[2021-04-26] MEDS ORDERED: FOSPHENYTOIN 1,500 MG.PE in SODIUM CHLORIDE 0.9% 100 ML IV ONE (17:00)
[2021-04-26] MEDS ORDERED: IBUPROFEN 800 MG TAB PO ONE (17:23)
[2021-04-26 17:52] VITALS: BP 103/58
== END 2021-04-26 18:35 | disposition home or self-care (01) ==
LOC: ED 15:10
DX: G40.909 Epilepsy, unspecified, not intractable, without status epilepticus (principal); J45.909 Unspecified asthma, uncomplicated; F17.200 Nicotine dependence, unspecified, uncomplicated; Z88.8 Allergy status to other drugs, medicaments and biological substances
CPT/HCPCS: 96365; 99283; Q2009

== ENCOUNTER 2021-08-03 09:35 | Emergency (ER) | payer OTHER ==
[2021-08-03 10:51] LABS: Basophils % (Auto) 0.2 % (0.0-1.8); Eosinophils % (Auto) 0.1 % (0.0-4.3); Hematocrit 39.6 % (30.3-42.9); Hemoglobin 13.2 gm/dl (10.1-14.3); Lymphocytes % (Auto) 9.5 % (13.4-35.0); Mean Corpuscular HGB Conc 33 % (30-34); Mean Corpuscular Volume 93 fl (79-97); Monocytes # (Auto) 0.9 K/mm3 (0.0-0.8); Monocytes % (Auto) 8.7 % (0.0-7.3); Platelet Count 290 K/mm3 (140-440); Red Blood Count 4.27 M/mm3 (3.65-5.03); Red Cell Distribution Width 13.6 % (13.2-15.2)
[2021-08-03 10:57] LABS: BUN/Creatinine Ratio 10; Blood Urea Nitrogen 9 mg/dL (7-17); Calcium 9.3 mg/dL (8.4-10.2); Hemolysis Index 5
[2021-08-03] MEDS ORDERED: SODIUM CHLORIDE 0.9% 1000 ML 1,000 ML IV ONE (12:45)
[2021-08-03] MEDS ORDERED: LORazepam 2 MG/ML VIAL IV ONE ×3 (12:45→16:45)
[2021-08-03] MEDS ORDERED: FOSPHENYTOIN 1,000 MG.PE in SODIUM CHLORIDE 0.9% 100 ML IV ONE (13:49)
--- NOTE | 2021-08-03 15:01 | Emergency Department Report ---
ED Seizure HPI - General Chief Complaint: Seizure Stated Complaint: SEIZURE Time Seen by Provider: 08/03/21 09:56 Source: EMS Mode of arrival: Stretcher Limitations: No Limitations - History of Present Illness Initial Comments: 35-year-old female with a past medical history of seizures presents to the hospital after having a seizure prior to arrival. At time of my evaluation patient is drowsy but oriented x3. Denies tongue laceration, headache, focal weakness. Mild residual drowsiness persists. Patient states she takes 2 separate medications for seizures but only can recall the name of zonisamide. As per medical record patient has a Keppra allergy. - Related Data Home Medications Medication Instructions Recorded Confirmed Last Taken Gabapentin 04/26/21 Unknown Lexapro 04/26/21 Unknown Trileptal 04/26/21 Unknown Previous Rx's Medication Instructions Recorded Last Taken Type Zonisamide [Zonisamide] 500 mg PO DAILY #30 10/27/19 04/16/20 Rx Zonisamide 500 mg PO DAILY 30 Days #150 04/26/21 Unknown Rx capsule Allergies Allergy/AdvReac Type Severity Reaction Status Date / Time levetiracetam [From Keppra] Allergy Unknown Verified 09/30/18 10:50 ED Review of Systems ROS: Stated complaint: SEIZURE Other details as noted in HPI Comment: All other systems reviewed and negative ED Past Medical Hx - Past Medical History Hx Seizures: Yes Hx Asthma: Yes (Per ER record) Additional medical history: Cannot be obtained from the patient secondary to altered mental status. Old records have been reviewed. - Surgical History Additional Surgical History: Cannot be obtained for the patient secondary to altered mental status - Social History Smoking Status: Current Every Day Smoker Substance Use Type: Other (Cannot be obtained for the patient secondary to altered status) - Medications Home Medications: Home Medications Medication Instructions Recorded Confirmed Last Taken Type Zonisamide [Zonisamide] 500 mg PO DAILY #30 10/27/19 04/18/20 04/16/20 Rx Gabapentin 04/26/21 Unknown History Lexapro 04/26/21 Unknown History Trileptal 04/26/21 Unknown History Zonisamide 500 mg PO DAILY 30 Days #150 04/26/21 Unknown Rx capsule ED Physical Exam - General Limitations: No Limitations - Other Other exam information: General: No acute distress Head: Atraumatic Eyes: normal appearance ENT: Moist mucous membranes Neck: Normal appearance, no midline tenderness Chest: Clear to auscultation bilaterally CV: Regular rate and rhythm Abdomen: Soft, normal bowel sounds, nontender, nondistended, no rebound or guarding Back: Normal inspection Extremity: Normal inspection, full range of motion Neuro: Drowsy but easily arousable, no facial asymmetry, speech clear, no gross motor sensory deficit Psych: Appropriate behavior Skin: No rash ED Course Vital Signs 08/03/21 08/03/21 08/03/21 09:47 10:01 10:15 Temperature Pulse Rate 90 90 93 H Respiratory 15 22 19 Rate Blood Pressure 115/68 91/53 O2 Sat by Pulse 100 100 100 Oximetry 08/03/21 08/03/21 08/03/21 10:31 10:44 10:45 Temperature 97.9 F Pulse Rate 88 89 Respiratory 18 18 Rate Blood Pressure 95/29 80/42 O2 Sat by Pulse 100 99 Oximetry 08/03/21 08/03/21 08/03/21 11:01 11:15 11:31 Temperature Pulse Rate 95 H 95 H 94 H Respiratory 18 18 17 Rate Blood Pressure 83/39 83/39 84/33 O2 Sat by Pulse 98 99 99 Oximetry 08/03/21 08/03/21 08/03/21 11:45 12:01 12:15 Temperature Pulse Rate 86 82 95 H Respiratory 17 16 18 Rate Blood Pressure 84/33 96/55 96/55 O2 Sat by Pulse 100 99 97 Oximetry 08/03/21 08/03/21 08/03/21 12:17 12:31 12:45 Temperature 98.1 F Pulse Rate 97 H 97 H Respiratory 18 12 Rate Blood Pressure 110/52 110/52 O2 Sat by Pulse 97 96 Oximetry 08/03/21 08/03/21 08/03/21 13:01 13:15 13:31 Temperature Pulse Rate 93 H 93 H 96 H Respiratory 17 16 22 Rate Blood Pressure 93/49 93/49 114/39 O2 Sat by Pulse 97 96 98 Oximetry 08/03/21 08/03/21 08/03/21 13:45 14:01 14:15 Temperature Pulse Rate 130 H 88 89 Respiratory 33 H 17 18 Rate Blood Pressure 114/39 114/39 114/39 O2 Sat by Pulse 100 100 Oximetry 08/03/21 08/03/21 14:31 14:32 Temperature 98.1 F Pulse Rate 84 Respiratory 14 Rate Blood Pressure 114/39 O2 Sat by Pulse 100 Oximetry - Reevaluation(s) Reevaluation #1: 08/03/21 15:01 At 13: 59 was reported to me that patient had a seizure and 2 mg of Ativan was initiated. Patient is now ED Medical Decision Making - Lab Data Result diagrams: 08/03/21 10:17 08/03/21 10:17 - EKG Data -: EKG Interpreted by Me EKG shows normal: sinus rhythm, intervals (qtc 414), ST-T waves (no stemi) Rate: normal (83) Critical care attestation.: If time is entered above; I have spent that time in minutes in the direct care of this critically ill patient, excluding procedure time. ED Disposition Condition: Stable Referrals: PRIMARY CARE, [Primary Care Provider] - 3-5 Days
--- NOTE | 2021-08-03 16:20 | Event Note ---
Date: 08/03/[address] Jones. This is a 35-year-old female with history of seizure disorder on zonisamide and unknown other medications who is apparently compliant with her medications but had one seizure at home. She had another seizure here which was witnessed and patient was given 2 mg of IV Ativan. She was also given a loading dose of fosphenytoin. The patient is now post ictal. I have added on serum hCG and will reassess the patient after she has been loaded with antiepileptic. Serum hCG is negative. On reassessment at 5:45 PM, the patient is resting in the bed. Upon awakening, she is slightly somnolent but does arouse and is alert and oriented x4 with nonfocal neurologic exam. She says she feels better overall. IV fluids are running slowly. Once IV fluids have finished we will reassess the patient and if she remains with nonfocal neurologic exam we will plan to discharge her home with PCP/neurology follow-up. This was discussed with the patient who expressed understanding and agreement with the plan of care.
[2021-08-03 18:47] VITALS: BP 114/66
--- NOTE | 2021-08-04 14:05 | Electrocardiograph Report ---
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
== END 2021-08-03 18:47 | disposition home or self-care (01) ==
LOC: ED 09:35
DX: R56.9 Unspecified convulsions (principal); J45.909 Unspecified asthma, uncomplicated; F17.200 Nicotine dependence, unspecified, uncomplicated
CPT/HCPCS: 36415; 80048; 83735; 84703; 85025; 93005; 93010; 96361; 96365; 96375; 99284; J2060; J7030; Q2009; Q0162

== ENCOUNTER 2021-08-21 12:38 | Emergency (ER) | payer OTHER ==
[2021-08-21] MEDS ORDERED: LORazepam 2 MG/ML VIAL IV ONE (12:53)
[2021-08-21] MEDS ORDERED: FOSPHENYTOIN 1,000 MG.PE in SODIUM CHLORIDE 0.9% 100 ML IV ONE (13:00)
--- NOTE | 2021-08-21 13:19 | Emergency Department Report ---
ED Seizure HPI - General Chief Complaint: Seizure Stated Complaint: seizures Time Seen by Provider: 08/21/21 12:47 Source: EMS Mode of arrival: Stretcher Limitations: No Limitations - History of Present Illness Initial Comments: 35-year-old female with a past medical history of seizure disorder who presented to the hospital multiple times in the past for the same presents to the hospital after a seizure. She is currently ANO x3. Complains of no pain. Admits to mild tongue biting and urinary incontinence. She states she is compliant with her medications which include Trileptal, gabapentin, zonisamide which she takes all at bedtime. Last dose was last night. Patient does not have any preceding symptoms prior to seizure. As per medical record patient for years has been positive cocaine and marijuana in April 2021 and has been positive for amphetamines in the past - Related Data Home Medications Medication Instructions Recorded Confirmed Last Taken OXcarbazepine [Trileptal] 900 mg PO BID 08/21/21 08/21/21 08/20/21 Previous Rx's Medication Instructions Recorded Last Taken Type Gabapentin 600 mg PO BID 30 Days cap 08/21/21 Unknown Rx OXcarbazepine [Trileptal] 900 mg PO DAILY 30 Days tablet 08/21/21 Unknown Rx Zonisamide 500 mg PO DAILY 30 Days #150 08/21/21 Unknown Rx capsule Allergies Allergy/AdvReac Type Severity Reaction Status Date / Time levetiracetam [From Keppra] Allergy hallucinati Verified 08/21/21 18:17 ons ED Review of Systems ROS: Stated complaint: seizures Other details as noted in HPI Comment: All other systems reviewed and negative ED Past Medical Hx - Past Medical History Previous Medical History?: Yes Hx Seizures: Yes Hx Asthma: Yes (Per ER record) Additional medical history: Cannot be obtained from the patient secondary to altered mental status. Old records have been reviewed. - Surgical History Additional Surgical History: Cannot be obtained for the patient secondary to altered mental status - Social History Smoking Status: Current Every Day Smoker Substance Use Type: Other (Cannot be obtained for the patient secondary to altered status) - Medications Home Medications: Home Medications Medication Instructions Recorded Confirmed Last Taken Type Gabapentin 600 mg PO BID 30 Days cap 08/21/21 Unknown Rx OXcarbazepine [Trileptal] 900 mg PO BID 08/21/21 08/21/21 08/20/21 History OXcarbazepine [Trileptal] 900 mg PO DAILY 30 Days tablet 08/21/21 Unknown Rx Zonisamide 500 mg PO DAILY 30 Days #150 08/21/21 Unknown Rx capsule ED Physical Exam - General Limitations: No Limitations - Other Other exam information: General: No acute distress Head: Atraumatic Eyes: normal appearance ENT: Moist mucous membranes, minimum tongue biting wounds to the lateral edge of the tongue without laceration or bleeding Neck: Normal appearance, no midline tenderness Chest: Clear to auscultation bilaterally CV: Regular rate and rhythm Abdomen: Soft, normal bowel sounds, nontender, nondistended, no rebound or guarding Back: Normal inspection Extremity: Normal inspection, full range of motion Neuro: Alert O x 3, no facial asymmetry, speech clear, no gross motor sensory deficit Psych: Appropriate behavior Skin: No rash ED Course Vital Signs 08/21/21 08/21/21 08/21/21 12:39 15:23 15:30 Temperature 98.1 F Pulse Rate 97 H 68 62 Respiratory 17 12 15 Rate Blood Pressure 110/75 Blood Pressure 142/82 [Left] O2 Sat by Pulse 100 99 100 Oximetry 08/21/21 08/21/21 08/21/21 15:46 16:00 16:16 Temperature Pulse Rate 75 73 79 Respiratory 15 12 15 Rate Blood Pressure 115/73 107/68 114/69 Blood Pressure [Left] O2 Sat by Pulse 100 100 100 Oximetry 08/21/21 08/21/21 08/21/21 16:20 16:22 16:30 Temperature 97.9 F Pulse Rate 79 82 Respiratory 15 15 Rate Blood Pressure 114/69 112/69 Blood Pressure 114/69 [Left] O2 Sat by Pulse 99 100 100 Oximetry 08/21/21 08/21/21 08/21/21 16:46 17:00 17:16 Temperature Pulse Rate 78 69 78 Respiratory 16 11 L 13 Rate Blood Pressure 106/72 105/55 95/56 Blood Pressure [Left] O2 Sat by Pulse 99 99 100 Oximetry 08/21/21 08/21/21 08/21/21 17:30 17:46 18:00 Temperature Pulse Rate 81 86 89 Respiratory 17 16 19 Rate Blood Pressure 96/58 90/54 97/52 Blood Pressure [Left] O2 Sat by Pulse 100 100 100 Oximetry 08/21/21 18:16 Temperature 98.5 F Pulse Rate 79 Respiratory 15 Rate Blood Pressure Blood Pressure 114/69 [Left] O2 Sat by Pulse 100 Oximetry - Reevaluation(s) Reevaluation #1: 08/21/21 13:18 Medications were ordered shortly after my assessment unfortunately, patient had a seizure prior to administration of medications. Patient is currently postictal. Accu-Chek and IV medication ministration requested ED Medical Decision Making - Lab Data Result diagrams: 08/21/21 16:45 08/21/21 13:25 Lab Results 08/21/21 08/21/21 08/21/21 Range/Units 13:15 13:25 13:25 WBC (4.5-11.0) K/mm3 RBC (3.65-5.03) M/mm3 Hgb (10.1-14.3) gm/dl Hct (30.3-42.9) % MCV (79-97) fl MCH (28-32) pg MCHC (30-34) % RDW (13.2-15.2) % Plt Count (140-440) K/mm3 ABG pH (7.350-7.450) pH Units ABG pCO2 mm Hg ABG pO2 (80.0-90.0) mm Hg ABG HCO3 (20.0-26.0) mmol/L ABG O2 Saturation (95.0-99.0) % ABG O2 Content (0.0-44) ABG Base Excess (-2.0-3.0) mmol/L ABG Hemoglobin (12.0-16.0) gm/dl ABG Carboxyhemoglobin (0.0-5.0) % ABG Methemoglobin (0.0-1.5) % VBG pH (7.320-7.420) Oxyhemoglobin (95.0-99.0) % FiO2 % Sodium 138 (137-145) mmol/L Potassium 4.6 (3.6-5.0) mmol/L Chloride 100.3 (98-107) mmol/L Carbon Dioxide 8 L* (22-30) mmol/L Anion Gap 34 mmol/L BUN 9 (7-17) mg/dL Creatinine 0.9 (0.6-1.2) mg/dL Estimated GFR > 60 ml/min BUN/Creatinine Ratio 10 % Glucose 104 H (65-100) mg/dL POC Glucose 96 (70-105) mg/dL Lactic Acid (0.7-2.0) mmol/L Calcium 9.4 (8.4-10.2) mg/dL Magnesium 2.30 (1.7-2.3) mg/dL Total Bilirubin 0.30 (0.1-1.2) mg/dL AST 18 (5-40) units/L ALT 14 (7-56) units/L Alkaline Phosphatase 59 (35-129) units/L Total Protein 8.1 (6.3-8.2) g/dL Albumin 4.7 (3.9-5) g/dL Albumin/Globulin Ratio 1.4 % HCG, Qual (Negative) Plasma/Serum Alcohol < 0.01 (0-0.07) % 08/21/21 08/21/21 08/21/21 Range/Units 13:25 16:45 16:45 WBC 9.2 (4.5-11.0) K/mm3 RBC 4.23 (3.65-5.03) M/mm3 Hgb 13.7 (10.1-14.3) gm/dl Hct 40.4 (30.3-42.9) % MCV 96 (79-97) fl MCH 33 H (28-32) pg MCHC 34 (30-34) % RDW 14.1 (13.2-15.2) % Plt Count 284 (140-440) K/mm3 ABG pH (7.350-7.450) pH Units ABG pCO2 mm Hg ABG pO2 (80.0-90.0) mm Hg ABG HCO3 (20.0-26.0) mmol/L ABG O2 Saturation (95.0-99.0) % ABG O2 Content (0.0-44) ABG Base Excess (-2.0-3.0) mmol/L ABG Hemoglobin (12.0-16.0) gm/dl ABG Carboxyhemoglobin (0.0-5.0) % ABG Methemoglobin (0.0-1.5) % VBG pH 7.265 L (7.320-7.420) Oxyhemoglobin (95.0-99.0) % FiO2 % Sodium (137-145) mmol/L Potassium (3.6-5.0) mmol/L Chloride (98-107) mmol/L Carbon Dioxide (22-30) mmol/L Anion Gap mmol/L BUN (7-17) mg/dL Creatinine (0.6-1.2) mg/dL Estimated GFR ml/min BUN/Creatinine Ratio % Glucose (65-100) mg/dL POC Glucose (70-105) mg/dL Lactic Acid (0.7-2.0) mmol/L Calcium (8.4-10.2) mg/dL Magnesium (1.7-2.3) mg/dL Total Bilirubin (0.1-1.2) mg/dL AST (5-40) units/L ALT (7-56) units/L Alkaline Phosphatase (35-129) units/L Total Protein (6.3-8.2) g/dL Albumin (3.9-5) g/dL Albumin/Globulin Ratio % HCG, Qual Negative (Negative) Plasma/Serum Alcohol (0-0.07) % 08/21/21 08/21/21 Range/Units 16:45 17:20 WBC (4.5-11.0) K/mm3 RBC (3.65-5.03) M/mm3 Hgb (10.1-14.3) gm/dl Hct (30.3-42.9) % MCV (79-97) fl MCH (28-32) pg MCHC (30-34) % RDW (13.2-15.2) % Plt Count (140-440) K/mm3 ABG pH 7.354 (7.350-7.450) pH Units ABG pCO2 42.9 mm Hg ABG pO2 95.9 H (80.0-90.0) mm Hg ABG HCO3 23.4 (20.0-26.0) mmol/L ABG O2 Saturation 97.2 (95.0-99.0) % ABG O2 Content 16.9 (0.0-44) ABG Base Excess -2.2 L (-2.0-3.0) mmol/L ABG Hemoglobin 12.6 (12.0-16.0) gm/dl ABG Carboxyhemoglobin 2.2 (0.0-5.0) % ABG Methemoglobin 0.5 (0.0-1.5) % VBG pH (7.320-7.420) Oxyhemoglobin 94.6 L (95.0-99.0) % FiO2 21 % Sodium (137-145) mmol/L Potassium (3.6-5.0) mmol/L Chloride (98-107) mmol/L Carbon Dioxide (22-30) mmol/L Anion Gap mmol/L BUN (7-17) mg/dL Creatinine (0.6-1.2) mg/dL Estimated GFR ml/min BUN/Creatinine Ratio % Glucose (65-100) mg/dL POC Glucose (70-105) mg/dL Lactic Acid 4.20 H* (0.7-2.0) mmol/L Calcium (8.4-10.2) mg/dL Magnesium (1.7-2.3) mg/dL Total Bilirubin (0.1-1.2) mg/dL AST (5-40) units/L ALT (7-56) units/L Alkaline Phosphatase (35-129) units/L Total Protein (6.3-8.2) g/dL Albumin (3.9-5) g/dL Albumin/Globulin Ratio % HCG, Qual (Negative) Plasma/Serum Alcohol (0-0.07) % - Medical Decision Making 35-year-old female with seizure disorder currently on 3 medications and states she is compliant presents to the hospital with a seizure prior to arrival. Shortly after my assessment patient had a second seizure. Patient was medicated with Ativan IV and IV Cerebyx. Labs drawn immediately after CT showing significant metabolic acidosis likely secondary to lactic acid from seizure activity. After several hours in ED observation and IV fluids ABG reveals improved acid-base status with likely improving lactic acidosis status. Patient also has a history of cocaine, amphetamine, and marijuana abuse with may lower the seizure threshold. Contrary to patient's claim of compliance it is also noted that patient has a history of noncompliance. pt s/o to Dr Dietrich to d/c once mental status at baseline. Pt drowsy at time of sign out. Her po sz medications have been ordered and pt prepped for d/c with med refil Critical Care Time: No Critical care attestation.: If time is entered above; I have spent that time in minutes in the direct care of this critically ill patient, excluding procedure time. ED Disposition Clinical Impression: Breakthrough seizure, Hx of substance abuse Disposition: HOME / SELF CARE / HOMELESS Is pt being admited?: No Does the pt Need Aspirin: No Condition: Stable Instructions: Epilepsy, [id number] Additional Instructions: Take your medication as prescribed. Follow-up with your neurologist. Prescriptions: Gabapentin 600 mg PO BID 30 Days cap OXcarbazepine [Trileptal] 900 mg PO DAILY 30 Days tablet Zonisamide 500 mg PO DAILY 30 Days #150 capsule Referrals: CHERISE LEARY MD [Primary Care Provider] - 3-5 Days your, neurologist [Other] - 3-5 Days
[2021-08-21 14:20] LABS: Alanine Aminotransferase 14 units/L (7-56); Albumin 4.7 g/dL (3.9-5); BUN/Creatinine Ratio 10; Blood Urea Nitrogen 9 mg/dL (7-17); Calcium 9.4 mg/dL (8.4-10.2); Hemolysis Index 14
[2021-08-21] MEDS ORDERED: SODIUM CHLORIDE 0.9% 1000 ML 1,000 ML IV ONE (14:46)
[2021-08-21 17:01] LABS: Hematocrit 40.4 % (30.3-42.9); Hemoglobin 13.7 gm/dl (10.1-14.3); Mean Corpuscular HGB Conc 34 % (30-34); Mean Corpuscular Volume 96 fl (79-97); Platelet Count 284 K/mm3 (140-440); Red Blood Count 4.23 M/mm3 (3.65-5.03); Red Cell Distribution Width 14.1 % (13.2-15.2)
[2021-08-21 17:34] LABS: ABG Base Excess -2.2 mmol/L (-2.0-3.0); ABG HCO3 23.4 mmol/L (20.0-26.0); ABG Methemoglobin 0.5 % (0.0-1.5); ABG Oxygen Saturation 97.2 % (95.0-99.0); ABG PCO2 42.9 mm Hg; ABG PH 7.354 pH Units (7.350-7.450); ABG PO2 95.9 mm Hg (80.0-90.0)
[2021-08-21] MEDS ORDERED: GABAPENTIN 300 MG CAP PO ONE (18:12)
[2021-08-21] MEDS ORDERED: OXcarbazepine 300 MG TAB PO ONE ×2 (18:14→20:00)
[2021-08-21 18:17] VITALS: BP 114/69
== END 2021-08-21 20:26 | disposition home or self-care (01) ==
LOC: ED 12:38
DX: R56.9 Unspecified convulsions (principal); F19.10 Other psychoactive substance abuse, uncomplicated; J45.909 Unspecified asthma, uncomplicated; F17.200 Nicotine dependence, unspecified, uncomplicated; Z79.899 Other long term (current) drug therapy; Z88.8 Allergy status to other drugs, medicaments and biological substances
CPT/HCPCS: 36415; 80053; 82140; 82803; 82805; 82962; 83735; 84703; 85027; 96361; 96365; 96375; 99284; J2060; Q2009; 80320; G0480

== ENCOUNTER 2021-09-14 04:37 | Emergency (ER) | payer OTHER ==
[2021-09-14] MEDS ORDERED: LORazepam 2 MG/ML VIAL ONE (05:15)
[2021-09-14] MEDS ORDERED: LORazepam 2 MG/ML VIAL IM ONE (05:35)
--- NOTE | 2021-09-14 05:37 | Event Note ---
Date: 09/14/21 This is a screening note. Patient is a 35-year-old female with history of seizure disorder who presents emergency department after a seizure. Patient then had another seizure while with EMS. The seizure lasted approximately 1 minute and patient was postictal after. Patient has been given 2 mg of IM Ativan, basic labs, chest x-ray CT head is ordered. The rest of patient's work-up is deferred to oncoming physician.
--- NOTE | 2021-09-14 06:40 | Emergency Department Report ---
HPI - General Time Seen by Provider: 09/14/21 06:33 - HPI HPI: Room 22 The patient is a 35-year-old female present with chief complaint of seizure. EMS was called after patient had a seizure. While with EMS the patient had a second seizure was administered Ativan IM. In the ED the patient is currently postictal. Patient has a history of seizures ED Past Medical Hx - Past Medical History Hx Seizures: Yes Hx Asthma: Yes (Per ER record) Additional medical history: Cannot be obtained from the patient secondary to altered mental status. Old records have been reviewed. - Surgical History Additional Surgical History: Cannot be obtained for the patient secondary to altered mental status - Family History Family history: no significant - Social History Smoking Status: Current Every Day Smoker Substance Use Type: Other (Cannot be obtained for the patient secondary to altered status) - Medications Home Medications: Home Medications Medication Instructions Recorded Confirmed Last Taken Type Gabapentin 600 mg PO BID 30 Days cap 08/21/21 Unknown Rx OXcarbazepine [Trileptal] 900 mg PO BID 08/21/21 08/21/21 08/20/21 History OXcarbazepine [Trileptal] 900 mg PO DAILY 30 Days tablet 08/21/21 Unknown Rx Zonisamide 500 mg PO DAILY 30 Days #150 08/21/21 Unknown Rx capsule Amoxicillin/Potassium Clav 1 each PO BID #20 09/14/21 Unknown Rx [Augmentin 875-125 Tablet] ED Review of Systems ROS: Stated complaint: SEIZURE Other details as noted in HPI Comment: Unobtainable due to pts medical conditions Physical Exam - Physical Exam Physical Exam: GENERAL: The patient is well-developed well-nourished female lying on stretcher postictal opens eyes to sternal rub but does not answer questions. [] HEENT: Normocephalic. Atraumatic. Patient has moist mucous membranes. NECK: Supple. Trachea midline CHEST/LUNGS: Clear to auscultation. There is no respiratory distress noted. HEART/CARDIOVASCULAR: Regular. There is no tachycardia. There is no gallop rub or murmur. ABDOMEN: Abdomen is soft, nontender. Patient has normal bowel sounds. There is no abdominal distention. SKIN: There is no rash. There is no edema. There is no diaphoresis. NEURO: The patient is currently postictal. Patient opens eyes to sternal rub and tactile stimuli but does not speak MUSCULOSKELETAL: There is no evidence of acute injury. ED Course - Reevaluation(s) Reevaluation #1: 09/14/21 14:17 Patient answering questions states she takes Zonegran for her seizures ED Medical Decision Making - Lab Data Result diagrams: 09/14/21 07:45 09/14/21 10:17 Laboratory Tests 09/14/21 09/14/21 09/14/21 07:45 07:45 07:45 WBC 12.0 H RBC 3.82 Hgb 11.9 Hct 36.5 MCV 96 MCH 31 MCHC 33 RDW 14.2 Plt Count 319 Lymph % (Auto) 6.6 L [place] % (Auto) 5.8 Eos % (Auto) 0.2 Baso % (Auto) 0.2 Lymph # (Auto) 0.8 L [place] # (Auto) 0.7 Eos # (Auto) 0.0 Baso # (Auto) 0.0 Seg Neutrophils % 87.2 H Seg Neutrophils # 10.5 H Sodium 137 Potassium 6.7 H* Chloride 110.2 H Carbon Dioxide 18 L Anion Gap 16 BUN 11 Creatinine 0.8 Estimated GFR > 60 BUN/Creatinine Ratio 14 Glucose 99 Calcium 9.2 Magnesium 2.30 Total Bilirubin 0.20 AST 27 ALT 13 Alkaline Phosphatase 51 Total Protein 6.5 Albumin 3.7 L Albumin/Globulin Ratio 1.3 HCG, Qual Negative 09/14/21 10:17 WBC RBC Hgb Hct MCV MCH MCHC RDW Plt Count Lymph % (Auto) [place] % (Auto) Eos % (Auto) Baso % (Auto) Lymph # (Auto) [place] # (Auto) Eos # (Auto) Baso # (Auto) Seg Neutrophils % Seg Neutrophils # Sodium Potassium 4.5 D Chloride Carbon Dioxide Anion Gap BUN Creatinine Estimated GFR BUN/Creatinine Ratio Glucose Calcium Magnesium Total Bilirubin AST ALT Alkaline Phosphatase Total Protein Albumin Albumin/Globulin Ratio HCG, Qual - Radiology Data Radiology results: report reviewed (CT head), image reviewed (CT head) interpreted by me: Chest x-ray-right lower lobe infiltrate [facility] [address] [place] [address] Cat Scan Report Signed Patient: LEIA HURLEY R#: [id number] : 1985 Acct:[id number] Age/Sex: 35 / F ADM Date: 09/14/21 Loc: ED Attending Dr: Ordering Physician: BRAYAN JOSEPH MD Date of Service: 09/14/21 Procedure(s): CT head/brain wo con Accession Number(s): [id number] cc: BRAYAN JOSEPH MD NONENHANCED CT SCAN OF THE HEAD: INDICATION / CLINICAL INFORMATION: 35 years Female; seizure. TECHNIQUE: Routine CT head without contrast. All CT scans at this location are performed using CT dose reduction for ALARA by means of automated exposure control. COMPARISON: CT scan of the head from 10/05/2019 and 11/02/2018 FINDINGS: BRAIN / INTRACRANIAL CONTENTS: No acute hemorrhage, mass effect, midline shift, hydrocephalus, or acute, large territorial infarct. No chronic infarct or focal atrophy. Normal brain volume and ventricular/sulcal si ze for age. No significant white matter abnormality. CRANIOCERVICAL JUNCTION: No significant abnormality. ORBITS: No significant abnormality of visualized orbits. SINUSES / MASTOIDS: No significant abnormality of the visualized paranasal sinuses or mastoid air cells. ADDITIONAL FINDINGS: None IMPRESSION: No focal parenchymal lesion Signer Name: Aurora Chaudhari MD Signed: 09/14/2021 8:33 AM Workstation Name: [id number] Transcribed By: BS Dictated By: Aurora Castillo MD Electronically Authenticated By: Aurora Castillo MD Signed Date/Time: 09/14/21832 DD/ 8 TD/TT: [facility] [address] [place] [address] XRay Report Signed Patient: LEIA HURLEY R#: [id number] : Acct:[id number] Age/Sex: 35 / F ADM Date: 09/14/21 Loc: ED Attending Dr: Ordering Physician: BRAYAN JOSEPH MD Date of Service: 09/14/21 Procedure(s): XR chest 1V ap Accession Number(s): [id number] cc: BRAYAN JOSEPH MD Fluoro Time In Minutes: CHEST 1 VIEW INDICATION: seizure. COMPARISON: 12/25/2013 FINDINGS: Support devices: None. Heart: Within normal limits. Lungs/Pleura: Subtle patchy airspace opacities are identified in the lateral right lung base which are new since 2014 exam. The remainder of the lungs are clear. No pleural effusion or pneumothorax. Additional findings: None. IM PRESSION: Subtle right lower lung infiltration. Correlate for early pneumonia. Signer Name: Bry Lyon Jr, MD Signed: 09/14/2021 8:40 AM Workstation Name: [id number] Transcribed By: TTR Dictated By: BRY LYON JR, MD Electronically Authenticated By: BRY LYON JR, MD Signed Date/Time: 09/14/21839 DD/ 8 TD/TT: - Differential Diagnosis Seizure disorder Critical care attestation.: If time is entered above; I have spent that time in minutes in the direct care of this critically ill patient, excluding procedure time. ED Disposition Clinical Impression: Seizure, Pneumonia Disposition: 01 HOME / SELF CARE / HOMELESS Is pt being admited?: No Does the pt Need Aspirin: No Condition: Stable Instructions: Bacterial Pneumonia (ED), Seizure, Adult, Community-Acquired Pneumonia, Adult, [id number] Additional Instructions: Return to the emergency department should you develop worsening symptoms, inabi lity to tolerate food or liquids, high fever or any other concerns Prescriptions: Amoxicillin/Potassium Clav [Augmentin 875-125 Tablet] 1 each PO BID #20 Referrals: CHERISE LEARY MD [Primary Care Provider] - 3-5 Days Time of Disposition: 14:20
[2021-09-14 08:07] LABS: Basophils % (Auto) 0.2 % (0.0-1.8); Eosinophils % (Auto) 0.2 % (0.0-4.3); Hematocrit 36.5 % (30.3-42.9); Hemoglobin 11.9 gm/dl (10.1-14.3); Lymphocytes # (Auto) 0.8 K/mm3 (1.2-5.4); Lymphocytes % (Auto) 6.6 % (13.4-35.0); Mean Corpuscular HGB Conc 33 % (30-34); Mean Corpuscular Volume 96 fl (79-97); Monocytes # (Auto) 0.7 K/mm3 (0.0-0.8); Monocytes % (Auto) 5.8 % (0.0-7.3); Platelet Count 319 K/mm3 (140-440); Red Blood Count 3.82 M/mm3 (3.65-5.03); Red Cell Distribution Width 14.2 % (13.2-15.2)
[2021-09-14 08:13] LABS: Alanine Aminotransferase 13 units/L (7-56); Albumin 3.7 g/dL (3.9-5); BUN/Creatinine Ratio 14; Blood Urea Nitrogen 11 mg/dL (7-17); Calcium 9.2 mg/dL (8.4-10.2); Hemolysis Index 215
--- NOTE | 2021-09-14 08:38 | Cat Scan Report ---
NONENHANCED CT SCAN OF THE HEAD: INDICATION / CLINICAL INFORMATION: 35 years Female; seizure. TECHNIQUE: Routine CT head without contrast. All CT scans at this location are performed using CT dos e reduction for ALARA by means of automated exposure control. COMPARISON: CT scan of the head from 10/05/2019 and 11/02/2018 FINDINGS: BRAIN / INTRACRANIAL CONTENTS: No acute hemorrhage, mass effect, midline shift, hydrocephalus, or acu te, large territorial infarct. No chronic infarct or focal atrophy. Normal brain volume and ventricul ar/sulcal size for age. No significant white matter abnormality. CRANIOCERVICAL JUNCTION: No significant abnormality. ORBITS: No significant abnormality of visualized orbits. SINUSES / MASTOIDS: No significant abnormality of the visualized paranasal sinuses or mastoid air lucina ls. ADDITIONAL FINDINGS: None IMPRESSION: No focal parenchymal lesion Signer Name: Aurora Chaudhari MD Signed: 09/14/2021 8:33 AM Workstation Name: [id number]
--- NOTE | 2021-09-14 08:44 | XRay Report ---
CHEST 1 VIEW INDICATION: seizure. COMPARISON: 12/25/2013 FINDINGS: Support devices: None. Heart: Within normal limits. Lungs/Pleura: Subtle patchy airspace opacities are identified in the lateral right lung base which ar e new since 2014 exam. The remainder of the lungs are clear. No pleural effusion or pneumothorax. Additional findings: None. IMPRESSION: Subtle right lower lung infiltration. Correlate for early pneumonia. Signer Name: Bry Lyon Jr, MD Signed: 09/14/2021 8:40 AM Workstation Name: [id number]
[2021-09-14 13:30] VITALS: BP 97/52
--- NOTE | 2021-09-16 14:12 | Electrocardiograph Report ---
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
== END 2021-09-14 15:34 | disposition home or self-care (01) ==
LOC: ED 04:37
DX: G40.909 Epilepsy, unspecified, not intractable, without status epilepticus (principal); J18.9 Pneumonia, unspecified organism; J45.909 Unspecified asthma, uncomplicated; F17.200 Nicotine dependence, unspecified, uncomplicated
CPT/HCPCS: 36415; 70450; 71045; 80053; 83735; 84132; 84703; 85025; 93005; 96372; 99285; J2060

== ENCOUNTER 2021-09-17 13:47 | Emergency (ER) | payer OTHER ==
[2021-09-17 13:56] VITALS: BP 111/52
[2021-09-17] MEDS ORDERED: SODIUM CHLORIDE 0.9% 1000 ML 1,000 ML IV ONE (16:04)
[2021-09-17] MEDS ORDERED: PHENYTOIN 1,000 MG in SODIUM CHLORIDE 0.9% 250ML 250 ML IV ONE (16:04)
[2021-09-17 16:48] LABS: Bilirubin,Urine NEG (Negative); Blood,Urine NEG (Negative); Color,Urine Yellow (Yellow); Hyaline Casts,Urine 1 /LPF; Mucus,Urine FEW /HPF; Protein,Urine <15 mg/dL mg/dL (Negative); Urobilinogen,Urine < 2.0 mg/dL (<2.0)
[2021-09-17 16:53] LABS: Methadone Screen,Urine Negative; Opiate Screen,Urine Negative
[2021-09-17 17:07] LABS: Amphetamine Screen,Urine Positive; Benzodiazepines Screen,Urine Positive; Cannabinoid Screen,Urine Positive; Cocaine Screen,Urine Positive
[2021-09-17 17:56] LABS: Basophils # (Auto) 0.1 K/mm3 (0.0-0.1); Basophils % (Auto) 0.6 % (0.0-1.8); Eosinophils % (Auto) 0.3 % (0.0-4.3); Hematocrit 37.8 % (30.3-42.9); Hemoglobin 12.7 gm/dl (10.1-14.3); Lymphocytes # (Auto) 1.1 K/mm3 (1.2-5.4); Mean Corpuscular HGB Conc 34 % (30-34); Mean Corpuscular Volume 95 fl (79-97); Monocytes # (Auto) 0.6 K/mm3 (0.0-0.8); Platelet Count 304 K/mm3 (140-440); Red Blood Count 3.97 M/mm3 (3.65-5.03); Red Cell Distribution Width 14.3 % (13.2-15.2)
[2021-09-17 18:21] LABS: Alanine Aminotransferase 9 units/L (7-56); Albumin 4.1 g/dL (3.9-5); BUN/Creatinine Ratio 14; Blood Urea Nitrogen 11 mg/dL (7-17); Calcium 9.1 mg/dL (8.4-10.2); Hemolysis Index 9
--- NOTE | 2021-09-17 18:28 | Emergency Department Report ---
ED Seizure HPI - General Chief Complaint: Seizure Stated Complaint: SEIZURE Time Seen by Provider: 09/17/21 16:01 Source: patient Mode of arrival: Ambulatory Limitations: No Limitations - History of Present Illness Initial Comments: pt presents to ed with complaint of seizure MD Complaint: seizure -: Sudden, hour(s) Description of Episode: loss of consciousness, post-event confusion Witnessed:: No Trauma: No Seizure History: known seizure disorder, compliant with medication Possible Precipitating Event: drug use Associated Symptoms: denies: denies other symptoms, chest pain, confusion, cough - Related Data Home Medications Medication Instructions Recorded Confirmed Last Taken OXcarbazepine [Trileptal] 900 mg PO BID 08/21/21 08/21/21 08/20/21 Previous Rx's Medication Instructions Recorded Last Taken Type Gabapentin 600 mg PO BID 30 Days cap 08/21/21 Unknown Rx OXcarbazepine [Trileptal] 900 mg PO DAILY 30 Days tablet 08/21/21 Unknown Rx Zonisamide 500 mg PO DAILY 30 Days #150 08/21/21 Unknown Rx capsule Amoxicillin/Potassium Clav 1 each PO BID #20 09/14/21 Unknown Rx [Augmentin 875-125 Tablet] Zonisamide 500 mg PO DAILY #30 cap 09/17/21 Unknown Rx Allergies Allergy/AdvReac Type Severity Reaction Status Date / Time levetiracetam [From [facility]] Allergy hallucinati Verified 08/21/21 18:17 ons ED Review of Systems ROS: Stated complaint: SEIZURE Other details as noted in HPI Constitutional: denies: chills, fever Eyes: denies: eye pain, eye discharge, vision change ENT: denies: ear pain, throat pain Respiratory: denies: cough, shortness of breath, wheezing Cardiovascular: denies: chest pain, palpitations Endocrine: no symptoms reported Gastrointestinal: denies: abdominal pain, nausea, diarrhea Genitourinary: denies: urgency, dysuria, discharge Musculoskeletal: denies: back pain, joint swelling, arthralgia Skin: denies: rash, lesions Neurological: denies: headache, weakness, paresthesias Psychiatric: denies: anxiety, depression Hematological/Lymphatic: denies: easy bleeding, easy bruising ED Past Medical Hx - Past Medical History Previous Medical History?: No Hx Hypertension: No Hx Seizures: Yes Hx Asthma: Yes (Per ER record) Additional medical history: Cannot be obtained from the patient secondary to altered mental status. Old records have been reviewed. - Surgical History Additional Surgical History: Cannot be obtained for the patient secondary to altered mental status - Social History Smoking Status: Current Every Day Smoker Substance Use Type: Other (Cannot be obtained for the patient secondary to altered status) - Medications Home Medications: Home Medications Medication Instructions Recorded Confirmed Last Taken Type Gabapentin 600 mg PO BID 30 Days cap 08/21/21 Unknown Rx OXcarbazepine [Trileptal] 900 mg PO BID 08/21/21 08/21/21 08/20/21 History OXcarbazepine [Trileptal] 900 mg PO DAILY 30 Days tablet 08/21/21 Unknown Rx Zonisamide 500 mg PO DAILY 30 Days #150 08/21/21 Unknown Rx capsule Amoxicillin/Potassium Clav 1 each PO BID #20 09/14/21 Unknown Rx [Augmentin 875-125 Tablet] Zonisamide 500 mg PO DAILY #30 cap 09/17/21 Unknown Rx ED Physical Exam - General Limitations: No Limitations General appearance: alert, postictal - Head Head exam: Present: atraumatic, normocephalic - Eye Eye exam: Present: normal appearance - ENT ENT exam: Present: mucous membranes moist - Neck Neck exam: Present: normal inspection - Respiratory Respiratory exam: Present: normal lung sounds bilaterally. Absent: respiratory distress - Cardiovascular Cardiovascular Exam: Present: regular rate, normal rhythm. Absent: systolic murmur, diastolic murmur, rubs, gallop - GI/Abdominal GI/Abdominal exam: Present: soft, normal bowel sounds - Extremities Exam Extremities exam: Present: normal inspection - Back Exam Back exam: Present: normal inspection - Neurological Exam Neurological exam: Present: alert, oriented X3 - Psychiatric Psychiatric exam: Present: normal affect, normal mood - Skin Skin exam: Present: warm, dry, intact, normal color. Absent: rash ED Course Vital Signs 09/17/21 09/17/21 13:54 15:02 Temperature 97.9 F Pulse Rate 110 H Respiratory 16 Rate Blood Pressure 111/52 [Left] O2 Sat by Pulse 98 98 Oximetry ED Medical Decision Making - Lab Data Result diagrams: 09/17/21 17:31 09/17/21 17:31 - EKG Data -: EKG Interpreted by Mi EKG shows normal: sinus rhythm - Radiology Data Radiology results: report reviewed, image reviewed - Medical Decision [facility] polysusbtance abuse pt denies, Critical care attestation.: If time is entered above; I have spent that time in minutes in the direct care of this critically ill patient, excluding procedure time. ED Disposition Clinical Impression: Seizure, Polysubstance abuse Disposition: HOME / SELF CARE / HOMELESS Is pt being admited?: No Does the pt Need Aspirin: No Condition: Stable Instructions: Seizure, Adult, [id number], Substance Use Disorder and Mental Illness Prescriptions: Zonisamide 500 mg PO DAILY #30 cap Referrals: PRIMARY CARE, [Primary Care Provider] - 3-5 Days
== END 2021-09-17 18:42 | disposition home or self-care (01) ==
LOC: ED 13:47
DX: R56.9 Unspecified convulsions (principal); F19.10 Other psychoactive substance abuse, uncomplicated; J45.909 Unspecified asthma, uncomplicated; Z79.899 Other long term (current) drug therapy; Z87.891 Personal history of nicotine dependence; Z88.8 Allergy status to other drugs, medicaments and biological substances
CPT/HCPCS: 80053; 80307; 81001; 85025; 99283; J1165; J7050; 80320; G0480

== ENCOUNTER 2021-10-22 08:14 | Emergency (ER) | payer OTHER ==
--- NOTE | 2021-10-22 10:30 | Emergency Department Report ---
ED Seizure HPI - General Chief Complaint: Seizure Stated Complaint: SEIZURE Time Seen by Provider: 10/22/21 08:46 Source: EMS Mode of arrival: Stretcher Limitations: Altered Mental Status - History of Present Illness Initial Comments: 35-year-old female with a history of seizure who now presented with seizure episode that was witnessed by her cousin. Pt is currently postictal but arousable. Pt denies any fever or chills. No chest pain or sob or palpitation reported. She however says she missed her medication yesterday. Pt could not tell me what antiseizure medication she is taking. No other modifying or associated factors reported. - Related Data Home Medications Medication Instructions Recorded Confirmed Last Taken OXcarbazepine [Trileptal] 900 mg PO BID 08/21/21 10/22/21 10/20/21 19:00 Previous Rx's Medication Instructions Recorded Last Taken Type Gabapentin 600 mg PO BID 30 Days cap 08/21/21 10/20/21 19:00 Rx OXcarbazepine [Trileptal] 900 mg PO DAILY 30 Days tablet 08/21/21 10/20/21 Rx Zonisamide 500 mg PO DAILY 30 Days #150 08/21/21 10/20/21 19:00 Rx capsule Amoxicillin/Potassium Clav 1 each PO BID #20 09/14/21 Unknown Rx [Augmentin 875-125 Tablet] Zonisamide 500 mg PO DAILY #30 cap 09/17/21 10/20/21 19:00 Rx Allergies Allergy/AdvReac Type Severity Reaction Status Date / Time levetiracetam [From Keppra] Allergy hallucinati Verified 08/21/21 18:17 ons ED Review of Systems ROS: Stated complaint: SEIZURE Other details as noted in HPI Comment: All other systems reviewed and negative Neurological: other (seizure) ED Past Medical Hx - Past Medical History Hx Hypertension: No Hx Seizures: Yes Hx Asthma: Yes (Per ER record) Additional medical history: Cannot be obtained from the patient secondary to altered mental status. Old records have been reviewed. - Surgical History Past Surgical History?: No Additional Surgical History: Cannot be obtained for the patient secondary to altered mental status - Social History Smoking Status: Former Smoker Substance Use Type: Alcohol, Marijuana - Medications Home Medications: Home Medications Medication Instructions Recorded Confirmed Last Taken Type Gabapentin 600 mg PO BID 30 Days cap 0310/22/21 10/20/21 19:00 Rx OXcarbazepine [Trileptal] 900 mg PO BID 08/21/21 10/22/21 10/20/21 19:00 History OXcarbazepine [Trileptal] 900 mg PO DAILY 30 Days tablet 08/21/21 10/22/21 10/20/21 Rx Zonisamide 500 mg PO DAILY 30 Days #150 08/21/21 10/22/21 10/20/21 19:00 Rx capsule Amoxicillin/Potassium Clav 1 each PO BID #20 09/14/21 Unknown Rx [Augmentin 875-125 Tablet] Zonisamide 500 mg PO DAILY #30 cap 09/17/21 10/22/21 10/20/21 19:00 Rx ED Physical Exam - General Limitations: No Limitations, Altered Mental Status General appearance: alert, in no apparent distress, postictal - Head Head exam: Present: atraumatic, normal inspection - Eye Eye exam: Present: normal appearance Pupils: Present: normal accommodation - ENT ENT exam: Present: normal exam, normal orophraynx, mucous membranes moist, TM's normal bilaterally - Neck Neck exam: Present: normal inspection, full ROM - Respiratory Respiratory exam: Present: normal lung sounds bilaterally. Absent: respiratory distress, accessory muscle use - Cardiovascular Cardiovascular Exam: Present: regular rate, normal rhythm, normal heart sounds - GI/Abdominal GI/Abdominal exam: Present: soft, normal bowel sounds. Absent: distended, tenderness - Extremities Exam Extremities exam: Present: normal inspection, normal capillary refill. Absent: pedal edema - Back Exam Back exam: Present: normal inspection, full ROM. Absent: CVA tenderness (R), CVA tenderness (L) - Neurological Exam Neurological exam: Present: alert, oriented X3, other (postictal ) - Psychiatric Psychiatric exam: Present: normal mood - Skin Skin exam: Present: warm, intact, normal color ED Course Vital Signs 10/22/21 10/22/21 10/22/21 08:36 08:39 08:46 Temperature 97.9 F Pulse Rate 83 Respiratory 18 Rate Blood Pressure 111/86 Blood Pressure 111/86 [Right] O2 Sat by Pulse 99 100 99 Oximetry 10/22/21 10/22/21 10/22/21 08:47 08:48 09:00 Temperature 98.0 F Pulse Rate 79 79 Respiratory 15 18 15 Rate Blood Pressure 88/46 Blood Pressure 88/46 [Right] O2 Sat by Pulse 99 100 99 Oximetry 10/22/21 10/22/21 10/22/21 09:16 09:30 09:46 Temperature Pulse Rate 71 Respiratory 14 14 12 Rate Blood Pressure 88/46 88/46 93/45 Blood Pressure [Right] O2 Sat by Pulse 99 99 97 Oximetry 10/22/21 10/22/21 10/22/21 10:00 10:16 10:30 Temperature Pulse Rate Respiratory 60 H 16 14 Rate Blood Pressure 97/58 97/58 97/58 Blood Pressure [Right] O2 Sat by Pulse 98 97 98 Oximetry 10/22/21 10/22/21 10/22/21 10:46 11:00 11:16 Temperature Pulse Rate 78 Respiratory 13 14 12 Rate Blood Pressure 97/58 101/45 101/45 Blood Pressure [Right] O2 Sat by Pulse 99 99 100 Oximetry 10/22/21 10/22/21 10/22/21 11:30 11:46 12:00 Temperature Pulse Rate 70 68 70 Respiratory 16 15 11 L Rate Blood Pressure 101/45 101/45 101/66 Blood Pressure [Right] O2 Sat by Pulse 100 99 100 Oximetry 10/22/21 10/22/21 10/22/21 12:25 12:30 12:46 Temperature Pulse Rate 75 83 Respiratory 20 14 Rate Blood Pressure 101/66 111/75 111/75 Blood Pressure [Right] O2 Sat by Pulse 98 99 100 Oximetry - Reevaluation(s) Reevaluation #1: 10/22/21 10:28 here with seizure activity witnessed by patient family member-- currently postictal and could not remember her medication-- so will go ahead and give Keppra 1g IVPB and ivf ns 1L bolus x 1-- and order routine labs including TSH and CBC, CMP and drug screen with UA for any correctable abnormality. Reevaluation #2: 10/22/21 10:32 Noted to be allergic to Keppra-- so will give dilantin Reevaluation #3: 10/22/21 14:09 Lab review and noted UDS positive for only cocaine and marijuana but otherwise unremarkable--patient reported feeling much better after the treatment and IV fluid. Patient is stable enough to be discharged home at this point with close follow-up with her primary doctor. ED Medical Decision Making - Lab Data Result diagrams: 10/22/21 11:09 10/22/21 11:09 Critical care attestation.: If time is entered above; I have spent that time in minutes in the direct care of this critically ill patient, excluding procedure time. ED Disposition Clinical Impression: Seizure Disposition: 01 HOME / SELF CARE / HOMELESS Is pt being admited?: No Does the pt Need Aspirin: No Condition: Stable Instructions: Seizure, Adult, [id number] Additional Instructions: Continue your medication as prescribed by your primary doctor Increase your daily fluid to help your hydration Please do not hesitate to call or return to emergency if your symptoms worsen Referrals: PRIMARY CARE, [Primary Care Provider] - 3-5 Days Time of Disposition: 14:10
[2021-10-22] MEDS ORDERED: PHENYTOIN 1,000 MG in SODIUM CHLORIDE 0.9% 250ML 250 ML IV ONE (11:00)
[2021-10-22 11:29] LABS: Basophils % (Auto) 0.5 % (0.0-1.8); Eosinophils # (Auto) 0.1 K/mm3 (0.0-0.4); Eosinophils % (Auto) 2.4 % (0.0-4.3); Hemoglobin 13.7 gm/dl (10.1-14.3); Lymphocytes # (Auto) 1.1 K/mm3 (1.2-5.4); Lymphocytes % (Auto) 20.5 % (13.4-35.0); Mean Corpuscular HGB Conc 34 % (30-34); Mean Corpuscular Volume 96 fl (79-97); Monocytes # (Auto) 0.8 K/mm3 (0.0-0.8); Monocytes % (Auto) 15.5 % (0.0-7.3); Platelet Count 263 K/mm3 (140-440); Red Blood Count 4.28 M/mm3 (3.65-5.03)
[2021-10-22 11:38] LABS: INR 0.89 (0.87-1.13)
[2021-10-22 11:39] LABS: Partial Thromboplastin Time 26.9 Sec. (24.2-36.6)
[2021-10-22 11:46] LABS: Alanine Aminotransferase 9 units/L (7-56); Albumin 4.6 g/dL (3.9-5); Blood Urea Nitrogen 6 mg/dL (7-17); Calcium 9.9 mg/dL (8.4-10.2); Hemolysis Index 3
[2021-10-22 11:49] LABS: BUN/Creatinine Ratio 9
[2021-10-22 12:52] LABS: Benzodiazepines Screen,Urine Negative; Methadone Screen,Urine Negative; Opiate Screen,Urine Negative
[2021-10-22 13:12] LABS: Amphetamine Screen,Urine Positive; Cannabinoid Screen,Urine Positive; Cocaine Screen,Urine Positive
[2021-10-22 13:31] LABS: Bacteria,Urine 1+ /HPF (Negative); Bilirubin,Urine NEG (Negative); Blood,Urine NEG (Negative); Color,Urine Yellow (Yellow); Hyaline Casts,Urine 4 /LPF; Mucus,Urine FEW /HPF; Protein,Urine <15 mg/dL mg/dL (Negative); Urobilinogen,Urine < 2.0 mg/dL (<2.0)
[2021-10-22 16:30] VITALS: BP 105/71
== END 2021-10-22 15:15 | disposition home or self-care (01) ==
LOC: ED 08:14
DX: G40.909 Epilepsy, unspecified, not intractable, without status epilepticus (principal); Z87.891 Personal history of nicotine dependence; F10.20 Alcohol dependence, uncomplicated; F12.90 Cannabis use, unspecified, uncomplicated; J45.909 Unspecified asthma, uncomplicated
CPT/HCPCS: 36415; 80053; 80307; 81001; 84443; 84703; 85025; 85610; 85730; 96365; 99284; J1165; J7050; 80320; G0480

== ENCOUNTER 2022-02-15 15:50 | Emergency (ER) | payer OTHER ==
[2022-02-15 15:56] VITALS: BP 150/103
[2022-02-15] MEDS ORDERED: FOSPHENYTOIN 500 MG PE/10 ML INJ IV ONE (17:15)
--- NOTE | 2022-02-15 18:46 | Emergency Department Report ---
ED Seizure HPI - General Chief Complaint: Seizure Stated Complaint: SEIZURE Time Seen by Provider: 02/15/22 17:14 Source: EMS Mode of arrival: Stretcher Limitations: Altered Mental Status - History of Present Illness Initial Comments: Patient is a 36-year-old female brought in by EMS for evaluation after having a witnessed seizure at home. She has history of seizures and takes zonisamide and Trileptal. - Related Data Home Medications Medication Instructions Recorded Confirmed Last Taken OXcarbazepine [Trileptal] 900 mg PO BID 08/21/21 10/22/21 10/20/21 19:00 Previous Rx's Medication Instructions Recorded Last Taken Type Gabapentin 600 mg PO BID 30 Days cap 08/21/21 10/20/21 19:00 Rx OXcarbazepine [Trileptal] 900 mg PO DAILY 30 Days tablet 08/21/21 10/20/21 Rx Zonisamide 500 mg PO DAILY 30 Days #150 08/21/21 10/20/21 19:00 Rx capsule Amoxicillin/Potassium Clav 1 each PO BID #20 09/14/21 Unknown Rx [Augmentin 875-125 Tablet] Zonisamide 500 mg PO DAILY #30 cap 09/17/21 10/20/21 19:00 Rx Allergies Allergy/AdvReac Type Severity Reaction Status Date / [facility] Allergy hallucinati Verified 02/15/22 17:19 ons ED Review of Systems ROS: Stated complaint: SEIZURE Other details as noted in HPI Constitutional: denies: chills, fever Respiratory: denies: cough, shortness of breath, wheezing Cardiovascular: denies: chest pain, palpitations Gastrointestinal: denies: abdominal pain, nausea, diarrhea Musculoskeletal: denies: back pain, joint swelling, arthralgia Skin: denies: rash, lesions Neurological: denies: headache, weakness, paresthesias Psychiatric: denies: anxiety, depression ED Past Medical Hx - Past Medical History Hx Hypertension: No Hx Seizures: Yes Hx Asthma: Yes (Per ER record) Additional medical history: Cannot be obtained from the patient secondary to altered mental status. Old records have been reviewed. - Surgical History Additional Surgical History: Cannot be obtained for the patient secondary to altered mental status - Social History Smoking Status: Former Smoker Substance Use Type: Alcohol, Marijuana - Medications Home Medications: Home Medications Medication Instructions Recorded Confirmed Last Taken Type Gabapentin 600 mg PO BID 30 Days cap 08/21/21 10/22/21 10/20/21 19:00 Rx OXcarbazepine [Trileptal] 900 mg PO BID 08/21/21 10/22/21 10/20/21 19:00 History OXcarbazepine [Trileptal] 900 mg PO DAILY 30 Days tablet 08/21/21 10/22/21 10/20/21 Rx Zonisamide 500 mg PO DAILY 30 Days #150 08/21/21 10/22/21 10/20/21 19:00 Rx capsule Amoxicillin/Potassium Clav 1 each PO BID #20 09/14/21 Unknown Rx [Augmentin 875-125 Tablet] Zonisamide 500 mg PO DAILY #30 cap 09/17/21 10/22/21 10/20/21 19:00 Rx ED Physical Exam - General Limitations: Altered Mental Status General appearance: alert, postictal (Mildly postictal. Able to answer questions appropriately.) - Head Head exam: Present: atraumatic, normocephalic - Respiratory Respiratory exam: Present: normal lung sounds bilaterally. Absent: respiratory distress - Cardiovascular Cardiovascular Exam: Present: regular rate, normal rhythm, normal heart sounds - GI/Abdominal GI/Abdominal exam: Present: soft. Absent: distended, tenderness - Rectal Rectal exam: Present: deferred - Neurological Exam Neurological exam: Present: alert, oriented X3 - Psychiatric Psychiatric exam: Present: normal affect, normal mood - Skin Skin exam: Present: warm, dry, intact, normal color ED Course Vital Signs 02/15/22 15:53 Temperature 98.7 F Pulse Rate 87 Respiratory 18 Rate Blood Pressure 150/103 [Left] O2 Sat by Pulse 98 Oximetry ED Medical Decision Making - Medical Decision Making Patient with known history of seizures presenting to ED status post witnessed seizure at home. Vital signs are stable. On my examination she is mildly postictal. She was observed in the emergency department for roughly 3 hours with no complications. On final examination patient is alert and oriented. She is stable for discharge home with return precautions. Critical care attestation.: If time is entered above; I have spent that time in minutes in the direct care of this critically ill patient, excluding procedure time. ED Disposition Clinical Impression: Seizure Disposition: 01 HOME / SELF CARE / HOMELESS Is pt being admited?: No Condition: Stable Instructions: Seizure, Adult, [id number] Additional Instructions: Please follow-up with your primary care doctor/neurologist as needed. You may return if your symptoms worsen.
== END 2022-02-15 18:45 | disposition home or self-care (01) ==
LOC: ED 15:50
DX: R56.9 Unspecified convulsions (principal); J45.909 Unspecified asthma, uncomplicated; Z87.891 Personal history of nicotine dependence; Z91.09 Other allergy status, other than to drugs and biological substances
CPT/HCPCS: 99283